=== PATIENT | female | born 1980 | race Caucasian/White ===

== ENCOUNTER 2020-05-01 08:19 | Outpatient (REF) | payer OTHER, SELFPAY ==
[2020-05-01 11:38] LABS: Alanine Aminotransferase 36 U/L (0-31); Albumin Level 4.5 g/dL (3.5-5.0); Alkaline Phosphatase 66 U/L (39-117); Anion Gap 16 (12-20); Aspartate Amino Transferase 19 U/L (5-31); Bilirubin Total 0.5 mg/dL (0.0-1.0); Blood Urea Nitrogen 19 mg/dL (9-16); Calcium 9.6 mg/dL (8.4-10.2); Carbon Dioxide 25 mmol/L (22-29); Chloride 101 mmol/L (96-108); Cholesterol 166 mg/dL; Estimated Glomerular Filt Rate > 60; Glucose Fasting 90 mg/dL (60-99); HDL Cholesterol 44 mg/dL; LDL Cholesterol Calculated 108 mg/dl; Potassium 4.5 mmol/l (3.3-5.1); Sodium 137 mmol/L (135-145); Total Protein 7.7 g/dL (6.5-8.0); Triglycerides 72 mg/dL
[2020-05-01 12:02] LABS: TSH reflex Free T4 0.03 mIU/mL (0.32-4.0)
[2020-05-01 12:36] LABS: Free T4 (Free Thyroxine) 1.77 ng/dL (0.71-1.85)
== END 2020-05-01 08:20 | disposition home or self-care (01) ==
LOC: HO.HMGCLDS 08:19
PROVIDERS: PCP Nurse Practitioner Family; Visit Provider Nurse Practitioner Family
DX: E03.9 Hypothyroidism, unspecified (principal)
CPT/HCPCS: 80053; 80061; 84439; 84443

== ENCOUNTER 2020-09-25 14:30 | Outpatient (REF) | payer OTHER, SELFPAY ==
[2020-09-25 16:34] LABS: MANUAL DIFF FLAG NO
[2020-09-25 16:38] LABS: Basophils Percent Auto 0.5 % (0-2); Eosinophils Absolute Auto 0.3 X10*3/uL (0.0-0.4); Eosinophils Percent Auto 4.9 % (0-4); Hematocrit 47.1 % (37-47); Imm Gran Abs Auto 0.06 X10*3/uL (0.00-0.03); Lymphocytes Absolute Auto 0.8 X10*3/uL (1.2-4.9); Lymphocytes Percent Auto 14.2 % (20-40); Mean Corpuscular HGB Conc 31.8 g/dl (31.0-35.0); Mean Corpuscular Hemoglobin 26.6 pg (27.0-33.0); Mean Corpuscular Volume 83.5 fL (80-98); Mean Platelet Volume 8.6 fL (9.4-12.3); Monocytes Absolute Auto 0.6 X10*3/uL (0.1-1.2); Monocytes Percent Auto 10.3 % (2-11); Neutrophils Percent Auto 69.1 % (45-73); Platelet Count 271 X10*3/uL (160-400); Red Blood Count 5.64 X10*6/uL (4.20-5.50); Red Cell Distribution Width 14.1 % (11.0-16.0); White Blood Count 5.7 X10*3/uL (4.8-10.8)
[2020-09-25 17:40] LABS: Alanine Aminotransferase 52 U/L (0-31); Albumin Level 4.7 g/dL (3.5-5.0); Alkaline Phosphatase 58 U/L (39-117); Anion Gap 17 (12-20); Aspartate Amino Transferase 25 U/L (5-31); Bilirubin Total 0.7 mg/dL (0.0-1.0); Blood Urea Nitrogen 15 mg/dL (9-16); Calcium 9.7 mg/dL (8.4-10.2); Carbon Dioxide 24 mmol/L (22-29); Chloride 101 mmol/L (96-108); Estimated Glomerular Filt Rate > 60; Glucose Random 88 mg/dL (60-115); Potassium 4.2 mmol/L (3.3-5.1); Sodium 138 mmol/L (135-145); Total Protein 8.1 g/dL (6.5-8.0)
[2020-09-25 18:02] LABS: Ferritin 151 ng/mL (10-250); Thyroid Stimulating Hormone 2.65 uIU/mL (0.32-4.0)
[2020-09-25 18:07] LABS: TSH reflex Free T4 2.81 uIU/mL (0.32-4.0)
[2020-09-25 18:27] LABS: Folate 6.4 ng/mL (> or = 4.0); Vitamin B12 808 pg/mL (200-900)
[2020-09-30 19:36] LABS: Estrogen 205.6 pg/mL
== END 2020-09-25 14:31 | disposition home or self-care (01) ==
LOC: HO.HMGCLDS 14:30
PROVIDERS: PCP Nurse Practitioner Family; Visit Provider Nurse Practitioner Family
DX: G43.909 Migraine, unspecified, not intractable, without status migrainosus (principal); E03.9 Hypothyroidism, unspecified
CPT/HCPCS: 36415; 80053; 82607; 82672; 82728; 82746; 83001; 84443; 85025

== ENCOUNTER 2020-11-07 14:21 | Outpatient (REF) | payer OTHER, SELFPAY ==
[2020-11-07 16:20] LABS: MANUAL DIFF FLAG NO
[2020-11-07 16:23] LABS: Basophils Percent Auto 0.4 % (0-2); Eosinophils Absolute Auto 0.3 X10*3/uL (0.0-0.4); Eosinophils Percent Auto 3.8 % (0-4); Hematocrit 43.8 % (37-47); Hemoglobin 14.3 g/dl (12.0-16.0); Imm Gran Abs Auto 0.04 X10*3/uL (0.00-0.03); Imm Gran Pct Auto 0.5 % (0.0-0.4); Lymphocytes Absolute Auto 2.3 X10*3/uL (1.2-4.9); Lymphocytes Percent Auto 28.1 % (20-40); Mean Corpuscular HGB Conc 32.6 g/dl (31.0-35.0); Mean Corpuscular Hemoglobin 27.1 pg (27.0-33.0); Mean Corpuscular Volume 83.1 fL (80-98); Mean Platelet Volume 8.6 fL (9.4-12.3); Monocytes Absolute Auto 0.6 X10*3/uL (0.1-1.2); Monocytes Percent Auto 6.9 % (2-11); Neutrophils Percent Auto 60.3 % (45-73); Platelet Count 323 X10*3/uL (160-400); Red Blood Count 5.27 X10*6/uL (4.20-5.50); White Blood Count 8.2 X10*3/uL (4.8-10.8)
[2020-11-07 16:45] LABS: Alanine Aminotransferase 30 U/L (0-31); Albumin Level 4.7 g/dL (3.5-5.0); Alkaline Phosphatase 59 U/L (39-117); Anion Gap 15 (12-20); Aspartate Amino Transferase 17 U/L (5-31); Bilirubin Total 0.2 mg/dL (0.0-1.0); Blood Urea Nitrogen 17 mg/dL (9-16); Calcium 9.9 mg/dL (8.4-10.2); Carbon Dioxide 25 mmol/L (22-29); Chloride 103 mmol/L (96-108); Estimated Glomerular Filt Rate > 60; Glucose Random 94 mg/dL (60-115); Potassium 4.5 mmol/L (3.3-5.1); Sodium 138 mmol/L (135-145); Total Protein 7.8 g/dL (6.5-8.0)
[2020-11-07 17:06] LABS: Ferritin 38 ng/mL (10-250); TSH reflex Free T4 2.74 uIU/mL (0.32-4.0)
== END 2020-11-07 14:22 | disposition home or self-care (01) ==
LOC: HO.HMGCLDS 14:21
PROVIDERS: PCP Nurse Practitioner Family; Visit Provider Nurse Practitioner Family
DX: E61.1 Iron deficiency (principal); E03.9 Hypothyroidism, unspecified
CPT/HCPCS: 36415; 80053; 82728; 84443; 85025

== ENCOUNTER 2021-04-20 06:52 | Outpatient (REF) | payer OTHER, SELFPAY ==
[2021-04-20 11:44] LABS: Appearance Urine CLEAR; Color Urine STRAW; Glucose Urine UA NEG (NEG); Leukocyte Esterase Urine NEG (NEG); Nitrite Urine NEG (NEG); Specific Gravity - Urine <= 1.005 (1.005-1.025); Urine Blood NEG (NEG); Urine Ketones NEG (NEG); Urine Protein NEG (NEG-TRACE)
[2021-04-20 12:16] LABS: Alanine Aminotransferase 33 U/L (0-31); Albumin Level 4.7 g/dL (3.5-5.0); Alkaline Phosphatase 60 U/L (39-117); Anion Gap 17 (12-20); Aspartate Amino Transferase 27 U/L (5-31); Bilirubin Total 0.7 mg/dL (0.0-1.0); Blood Urea Nitrogen 19 mg/dL (9-16); Calcium 10.3 mg/dL (8.4-10.2); Carbon Dioxide 23 mmol/L (22-29); Chloride 101 mmol/L (96-108); Cholesterol 173 mg/dL; Estimated Glomerular Filt Rate > 60; Glucose Random 93 mg/dL (60-115); HDL Cholesterol 35 mg/dL; LDL Cholesterol Calculated 114 mg/dl; Sodium 136 mmol/L (135-145); Total Protein 8.2 g/dL (6.5-8.0); Triglycerides 120 mg/dL
== END 2021-04-20 06:53 | disposition home or self-care (01) ==
LOC: HO.HMGCLDS 06:52
PROVIDERS: PCP Nurse Practitioner Family; Visit Provider Nurse Practitioner Family
DX: E03.9 Hypothyroidism, unspecified (principal)
CPT/HCPCS: 36415; 80053; 80061; 81003; 84443

== ENCOUNTER 2021-06-13 07:13 | Outpatient (REF) | payer OTHER, SELFPAY ==
[2021-06-13 11:33] LABS: Appearance Urine CLEAR; Color Urine STRAW; Glucose Urine UA NEG (NEG); Leukocyte Esterase Urine TRACE (NEG); Nitrite Urine NEG (NEG); PH 5.5 (5.0-8.0); Specific Gravity - Urine <= 1.005 (1.005-1.025); UACC Culture Trigger YES; Urine Blood NEG (NEG); Urine Ketones NEG (NEG); Urine Protein NEG (NEG-TRACE)
[2021-06-13 12:00] LABS: Squamous Epithelial Cell Urine TRACE /LPF; WBC Urine 0-2 /HPF (0-4)
[2021-06-13 12:09] LABS: Alanine Aminotransferase 32 U/L (0-31); Albumin Level 4.3 g/dL (3.5-5.0); Alkaline Phosphatase 72 U/L (39-117); Anion Gap 12 (12-20); Aspartate Amino Transferase 18 U/L (5-31); Bilirubin Total 0.7 mg/dL (0.0-1.0); Blood Urea Nitrogen 17 mg/dL (9-16); Calcium 9.7 mg/dL (8.4-10.2); Carbon Dioxide 26 mmol/L (22-29); Chloride 104 mmol/L (96-108); Cholesterol 196 mg/dL; Estimated Glomerular Filt Rate > 60; Glucose Fasting 93 mg/dL (60-99); HDL Cholesterol 36 mg/dL; LDL Cholesterol Calculated 131 mg/dl; Magnesium 2.2 mg/dL (1.6-2.6); Potassium 4.3 mmol/L (3.3-5.1); Sodium 138 mmol/L (135-145); Total Protein 7.2 g/dL (6.5-8.0); Triglycerides 146 mg/dL
[2021-06-13 12:20] LABS: TSH reflex Free T4 1.87 uIU/mL (0.32-4.0)
== END 2021-06-13 07:14 | disposition home or self-care (01) ==
LOC: HO.HMGCLDS 07:13
PROVIDERS: Visit Provider Nurse Practitioner Family
DX: Z00.00 Encounter for general adult medical examination without abnormal findings (principal); R25.2 Cramp and spasm
CPT/HCPCS: 36415; 80053; 80061; 81001; 83735; 84443; 87086

== ENCOUNTER 2022-05-07 08:09 | Outpatient (REF) | payer OTHER, SELFPAY ==
[2022-05-07 11:11] LABS: MANUAL DIFF FLAG NO
[2022-05-07 11:21] LABS: Appearance Urine Clear; Color Urine Yellow; Glucose Urine UA Negative (Negative); Leukocyte Esterase Urine Moderate (2+) (Negative); Nitrite Urine Negative (Negative); Specific Gravity - Urine 1.015 (1.005-1.025); UMIC TRIGGER UACC YES; Urine Blood Negative (Negative); Urine Ketones Negative (Negative); Urine Protein Negative (Neg-Trace)
[2022-05-07 11:27] LABS: Bacteria Urine None Seen (None Seen); Hyaline Casts Urine 0-2 /LPF (0-2); Squamous Epithelial Cell Urine 0-2 /HPF (0-2); UACC Culture Trigger YES
[2022-05-07 11:29] LABS: Basophils Percent Auto 0.7 % (0-2); Eosinophils Absolute Auto 0.3 X10*3/uL (0.0-0.4); Hematocrit 43.4 % (37.0-47.0); Hemoglobin 14.3 g/dl (12.0-16.0); Imm Gran Abs Auto 0.02 X10*3/uL (0.00-0.03); Imm Gran Pct Auto 0.3 % (0.0-0.4); Lymphocytes Absolute Auto 1.7 X10*3/uL (1.2-4.9); Lymphocytes Percent Auto 27.9 % (20-40); Mean Corpuscular HGB Conc 32.9 g/dl (31.0-35.0); Mean Corpuscular Hemoglobin 28.3 pg (27.0-33.0); Mean Corpuscular Volume 85.8 fL (80.0-98.0); Mean Platelet Volume 8.8 fL (9.4-12.3); Monocytes Absolute Auto 0.4 X10*3/uL (0.1-1.2); Neutrophils Absolute Auto 3.5 x10*3/uL (2.0-8.3); Neutrophils Percent Auto 59.1 % (45-73); Platelet Count 287 X10*3/uL (160-400); Red Blood Count 5.06 X10*6/uL (4.20-5.50); Red Cell Distribution Width 13.1 % (11.0-16.0)
[2022-05-07 12:40] LABS: Alanine Aminotransferase 22 U/L (0-31); Albumin Level 4.4 g/dL (3.5-5.0); Alkaline Phosphatase 61 U/L (39-117); Anion Gap 11 (12-20); Aspartate Amino Transferase 15 U/L (5-31); Bilirubin Total 0.6 mg/dL (0.0-1.0); Blood Urea Nitrogen 18 mg/dL (9-16); Calcium 9.9 mg/dL (8.4-10.2); Carbon Dioxide 28 mmol/L (22-29); Chloride 103 mmol/L (96-108); Cholesterol 212 mg/dL; Estimated Glomerular Filt Rate > 60; Glucose Fasting 93 mg/dL (60-99); HDL Cholesterol 46 mg/dL; LDL Cholesterol Calculated 136 mg/dl; Potassium 4.3 mmol/L (3.3-5.1); Sodium 138 mmol/L (135-145); TSH reflex Free T4 0.98 uIU/mL (0.32-4.0); Total Protein 7.2 g/dL (6.5-8.0); Triglycerides 151 mg/dL
== END 2022-05-07 08:10 | disposition home or self-care (01) ==
LOC: HO.HMGCLDS 08:09
PROVIDERS: PCP Nurse Practitioner Family; Visit Provider Nurse Practitioner Family
DX: Z00.00 Encounter for general adult medical examination without abnormal findings (principal); E03.9 Hypothyroidism, unspecified
CPT/HCPCS: 36415; 80053; 80061; 81001; 84443; 85025; 87086

== ENCOUNTER 2022-11-27 14:36 | Outpatient (REF) | payer OTHER, SELFPAY ==
[2022-11-30 02:24] LABS: TS Negative Control Passed; TS Panel A 0; TS Panel B 0; TS Positive Control Passed; TSpotTB Negative (Negative)
== END 2022-11-27 14:37 | disposition home or self-care (01) ==
LOC: HO.LAB 14:36
PROVIDERS: PCP Nurse Practitioner Family; Visit Provider Nurse Practitioner Family
DX: Z11.1 Encounter for screening for respiratory tuberculosis (principal)
CPT/HCPCS: 36415; 86481

== ENCOUNTER 2022-11-29 09:58 | Outpatient (REF) | payer OTHER, SELFPAY ==
[2022-12-02 08:39] LABS: ~Hepatitis B Surface Antibody NONREACTIVE (Nonreactive)
== END 2022-11-29 09:59 | disposition home or self-care (01) ==
LOC: HO.HMGCLDS 09:58
PROVIDERS: PCP Nurse Practitioner Family; Visit Provider Nurse Practitioner Family
DX: Z78.9 Other specified health status (principal); Z20.2 Contact with and (suspected) exposure to infections with a predominantly sexual mode of transmission
CPT/HCPCS: 36415; 86706

== ENCOUNTER 2023-04-14 13:23 | Outpatient (REF) | payer OTHER, SELFPAY ==
--- NOTE | ~2023-04-14 | US_ITS ---
EXAMINATION: US VENOUS ULTRASOUND WITH DOPPLER LOWER EXTREMITY, LEFT CLINICAL INFORMATION: Pain in left lower leg. COMPARISON: None available. TECHNIQUE: Ultrasound of the deep veins is performed from the hip to the calf with compression sonography and color and pulse Doppler assessment. Spectral analysis with color-flow imaging is performed. FINDINGS: There is normal venous compression and respiratory variation and augmented flow. The visualized common femoral vein, superficial femoral vein, profunda femoral vein, popliteal vein, and the trifurcation region shows no evidence of deep venous thrombosis. There is no significant popliteal fossa cyst. If the patient's symptoms persist, followup ultrasound in 5 days 7 days might be of value to exclude proximal propagation from a non-visualized calf vein. US/US venous duplex LE LT IMPRESSION: No DVT demonstrated in the left lower extremity.
== END 2023-04-14 13:24 | disposition home or self-care (01) ==
LOC: HO.HMGCX 13:23
PROVIDERS: PCP Nurse Practitioner Family; Visit Provider Nurse Practitioner Family
DX: M79.662 Pain in left lower leg (principal)
CPT/HCPCS: 93971

== ENCOUNTER 2023-05-13 07:38 | Outpatient (AMB) | payer OTHER, SELFPAY ==
--- NOTE | 2023-05-13 07:43 | MHC.PC.OV ---
Vital Signs 05/13/23 07:47 Height 5 ft 5 in Weight 296 lb BMI 49.3 BP 104/68 Blood Pressure Location Lt brachial Position Sitting Pulse 74 Pulse Source Pulse Oximeter Pulse Oximetry (%) 94 Oxygen Delivery Method Room Air Intake Visit Reasons: Annual PE Intake Note: Pt is here today for her PE Allergies hydroxychloroquine [From Plaquenil] Allergy (Mild, Verified 05/13/23 07:46) Weakness codeine Allergy (Unknown, Verified 05/13/23 07:46) unknown fluticasone [Advair Diskus] Allergy (Unknown, Verified 05/13/23 07:46) Hives levothyroxine sodium [LEVOTHYROXINE SODIUM] Allergy (Unknown, Verified 05/13/23 07:46) ITCHING, rash, itching-NAME BRAND [place] minocycline [MINOCYCLINE] Allergy (Unknown, Verified 05/13/23 07:46) HEADACHE salmeterol [Advair Diskus] Allergy (Unknown, Verified 05/13/23 07:46) Hives acetaminophen [From Vicodin] Adverse Reaction (Unknown, Verified 05/13/23 07:46) Vomiting hydrocodone [From Vicodin] Adverse Reaction (Unknown, Verified 05/13/23 07:46) Vomiting metformin Adverse Reaction (Verified 05/13/23 07:54) muscle weakness topamate Adverse Reaction (Uncoded 05/13/23 07:54) muscle weakness Medication List - Last Reconciled 05/13/23 by MIRNA WestP-BC albuterol sulfate 90 mcg/actuation (Ventolin HFA) 2 puffs inhalation Q6H PRN 30 days amitriptyline 25 mg PO BEDTIME ascorbate calcium (vitamin C) 500 mg PO DAILY cetirizine 10 mg PO DAILY fremanezumab-vfrm (Ajovy Syringe) 675 mg subcut Q 3 months; administer as 3 consecutive 225 mg injections magnesium glycinate 400 mg PO DAILY montelukast 10 mg PO DAILY multivitamin (Daily Multi-Vitamin tablet) 1 tab PO DAILY propranolol ER 80 mg PO DAILY 90 days rizatriptan mg PO spironolactone 100 mg PO DAILY 90 days Synthroid (levothyroxine) 200 mcg PO DAILY NS Tobacco use date assessed: 05/13/23 Dental Screening Dental Screen Date: 05/13/23 Did you have a dental visit in the last 12 months?: Yes Did you have a dental problem in the last 6 months where you did not have access to dental care?: Yes Was dental information given to patient?: Patient has dentist HPI Annual PE HPI Details Here for a PE. 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 Pt has a neurologist, and sees a bariatric specialist as well. Hx of dyslipidemia, will start statin if choles is elevated during this next lab draw. Will be do for a colon screen in august, will refer [facility] Medical History Right humeral fracture Chronic GERD Iron deficiency Left Achilles tendinitis Plantar fasciitis Dyslipidemia Hypothyroid HTN (hypertension) Asthma Physical exam Right shoulder injury Surgical History S/P gastric sleeve procedure History of sleeve gastrectomy H/O repair of right rotator cuff History of lipoma Hx of cholecystectomy History of section History of tonsillectomy and adenoidectomy Family History Father No problems noted. Mother Non-Hodgkins lymphoma Sister No problems noted. Brother No problems noted. Maternal Grandmother Diabetes mellitus HTN (hypertension) Degenerative disk disease Breast cancer Maternal Grandfather No problems noted. Brother No problems noted. Sister No problems noted. Social History Housing: House Alcohol intake: never Patient Tobacco Use Status: Never used Tobacco Tobacco use type: Cigarette e-Cigarette/Vaping Use: Never Used Second Hand Smoke Exposure: Yes Current occupational status: employed Cognitive needs: No Hearing needs: No Vision needs: No Questionnaire PHQ-9 Over the last 2 weeks, how often have you been bothered by any of the following problems? 1. Little interest or pleasure in doing things: not at all 2. Feeling down, depressed, or hopeless: not at all 3. Trouble falling or staying asleep, or sleeping too much: not at all 4. Feeling tired or having little energy: not at all 5. Poor appetite or overeating: not at all 6. Feeling bad about yourself - or that you are a failure or have let yourself or your family down: not at all 7. Trouble concentrating on things, such as reading the newspaper or watching television: not at all 8. Moving or speaking so slowly that other people could have noticed. Or the opposite - being so fidgety or restless that you have been moving around a lot more than usual: not at all 9. Thoughts that you would be better off or of hurting yourself in some way: not at all Total score: 0 Source: Developed by Drs. Kevin Seay, Amarilis Villalobos, Jason Hernandez and colleagues, with an educational katarina from [employer]. Thrive Questionnaire Date Thrive assessed: 05/13/23 I am a: Patient What is your living situation today?: I have a steady place to live Within the past 12 months, did the food you bought not last and you didn't have the money to get more?: Never true Within the past 12 months, did you worry whether your food would run out before you got money to buy more?: Never true Do you have trouble paying for medicines?: No Do you have trouble getting transportation to medical appointments?: No Do you have trouble paying your heating and electricity bill?: No Do you have trouble taking care of your child, family member or friend?: No Do you have trouble with day-to-day activities such as bathing, preparing meals, shopping, managing finances, etc.?: No Are you currently unemployed and looking for a job?: No Are you interested in more education?: No AUDIT C Alcohol Use Questionnaire (AUDIT-C) 1. How often do you have a drink containing alcohol?: Never Total Score: 0 JAYCE-7 AMB Questionnaire JAYCE-7 Date JAYCE - 7 assessed: 05/13/23 Feeling nervous, anxious, or on edge: 0 = Not at all Not being able to stop or control worryin = Not at all Worrying too much about different things: 0 = Not at all Trouble relaxin = Not at all Being so restless that it is hard to sit still: 0 = Not at all Becoming easily annoyed or irritable: 0 = Not at all Feeling afraid as if something awful might happen: 0 = Not at all Total JAYCE-7 score (0-4 normal; 5-9 mild; 10-14 moderate; 15-21 severe): 0 Source: Developed by Drs. Kevin Seay, Amarilis Villalobos, Jason Hernandez and colleagues, with an educational katarina from [employer]. JAYCE-7 Assessment Billing JAYCE-7 Assessment Tool: JAYCE-7 Assessment 68802 Review of Systems Const Denies chills and Denies fever(s) Eyes Denies blurry vision ENT Denies vertigo, Denies dizziness and Denies sore throat Card Denies chest pain at rest, Denies chest pain with activity, Denies diaphoresis, Denies dyspnea and Denies dyspnea on exertion Resp Denies cough, Denies dyspnea, Denies dyspnea on exertion and Denies wheezing GI Denies abdominal pain, Denies melena, Denies hematochezia, Denies constipation, Denies diarrhea and Denies loose stools Denies hematuria Musc Denies numbness and Denies tingling Skin/Breast Denies lesions Neuro Denies vertigo, Denies dizziness, Denies numbness and Denies tingling Psych Denies anxiety, Denies depression, Denies homicidal ideation, Denies suicidal ideation and Denies other (substance abuse) Aller/Immun Denies wheezing Physical exam (Primary Care) Vital Signs: Last Vital Signs Pulse 74 05/13/23 07:47 BP 104/68 05/13/23 07:47 Pulse Ox 94 05/13/23 07:47 Oxygen Delivery Method Room Air 05/13/23 07:47 BMI result Body Mass Index 49.3 Tobacco/Smoking Status: Tobacco use Status Tobacco use date assessed 05/13/23 05/13/23 07:52 Patient Tobacco Use Status Never used Tobacco 05/13/23 07:44 Tobacco use type Cigarette 05/13/23 07:44 e-Cigarette/Vaping Use Never Used 05/13/23 07:44 PHQ-9: PHQ-9 Score PHQ-9: Total score 0 05/13/23 07:54 Thrive Assessment: Date of Thrive Assessment Date Thrive assessed 05/13/23 05/13/23 07:54 Const General: cooperative Nutritional Appearance: well nourished and obese Orientation/consciousness: patient oriented x3 HENMT Head: Yes normal to inspection, Yes normocephalic and Yes atraumatic Ears: TM normal on the right and TM normal on the left Eyes General: appearance normal, both eyes and all related structures Alignment and Position: alignment normal and position normal Neck Neck: Yes normal visual inspection and Yes no lymphadenopathy Resp Effort & Inspection: normal respiratory effort Auscultation: clear to auscultation bilaterally Cardio Rate: regular rate Rhythm: regular rhythm Heart sounds: S1 normal heart sound present, S2 normal heart sound present and no murmurs GI Palpation (GI): Soft to palpation and nontender Auscultation: normal bowel sounds Skin Rashes: no rashes Neuro General: patient oriented x3, moves all extremities, no focal motor deficits and deep tendon reflexes 2+ bilaterally Romberg Test: Negative Extrem Right lower extremity: no edema Left lower extremity: no edema Psych Affect: normal affect Attitude: cooperative Thought process: Normal thought process present Assessment and Plan Assessment & Plan (1) Physical exam: Code(s): Z00.00 - Encounter for general adult medical examination without abnormal findings (2) Screening for colon cancer: Code(s): Z12.11 - Encounter for screening for malignant neoplasm of colon Orders: Orders TSH reflex Free T4 Today Z00.00 - Encounter for general adult medical examination without abnormal findings Complete Blood Count Auto Diff Today Z00.00 - Encounter for general adult medical examination without abnormal findings Comprehensive [place]. Panel Fast Today Z00.00 - Encounter for general adult medical examination without abnormal findings UA CC w/rflx Micro + Cult Today Z00.00 - Encounter for general adult medical examination without abnormal findings Lipid Panel Today Z00.00 - Encounter for general adult medical examination without abnormal findings Referrals Gastroenterology Referral Z12.11 - Encounter for screening for malignant neoplasm of colon Coding Level of Care Code Est Pt Prev Care 40-64y(39616) Diagnoses Physical exam Z00. Screening for colon cancer Z12.11 Additional Codes JAYCE-7 Assessment Billing - JAYCE-7 Assessment Tool: JAYCE-7 Assessment 39448 ([id number])
[2023-05-13 07:47] VITALS: BP 104/68; PULSE 74; O2SAT 94; BMI 49.3
== END 2023-05-13 08:24 | disposition home or self-care (01) ==
LOC: HO.HMGC 07:38
PROVIDERS: Visit Provider Nurse Practitioner Family
DX: Z00.00 Encounter for general adult medical examination without abnormal findings (principal); Z12.11 Encounter for screening for malignant neoplasm of colon
CPT/HCPCS: 99396

== ENCOUNTER 2023-09-01 07:52 | Outpatient (AMB) | payer OTHER, SELFPAY ==
--- NOTE | 2023-09-01 07:53 | A.OFFVIS_ITS ---
Vital Signs 09/01/23 07:54 Height 5 ft 5 in Weight 301 lb 9.478 oz BMI 50.2 BP 137/88 Blood Pressure Location Lt brachial Position Sitting Pulse 78 Pulse Source Pulse Oximeter Intake Visit Reasons: Colonoscopy Screening Intake Note: Raegan presents in the office as a Colonoscopy Screening. Pt states she is overall feeling well and denies any concerns at this time. Restaurant Associate Required: No Allergies hydroxychloroquine [From Plaquenil] Allergy (Mild, Verified 09/01/23 08:04) Weakness codeine Allergy (Unknown, Verified 09/01/23 08:04) unknown fluticasone [Advair Diskus] Allergy (Unknown, Verified 09/01/23 08:04) Hives levothyroxine sodium [LEVOTHYROXINE SODIUM] Allergy (Unknown, Verified 09/01/23 08:04) ITCHING, rash, itching-NAME BRAND [place] minocycline [MINOCYCLINE] Allergy (Unknown, Verified 09/01/23 08:04) HEADACHE salmeterol [Advair Diskus] Allergy (Unknown, Verified 09/01/23 08:04) Hives acetaminophen [From Vicodin] Adverse Reaction (Unknown, Verified 09/01/23 08:04) Vomiting hydrocodone [From Vicodin] Adverse Reaction (Unknown, Verified 09/01/23 08:04) Vomiting metformin Adverse Reaction (Verified 09/01/23 08:04) muscle weakness topamate Adverse Reaction (Uncoded 09/01/23 08:04) muscle weakness HPI HPI Colonoscopy Screening: Details: 43 year old? female with past medical history of hypothyroidism, iron deficiency anemia, migraines, hypertension, status post gastric sleeve is here today for pre colonoscopy screening.? Patient was sent to us by her PCP.? This is her first colonoscopy screening.? Patient denies any gastrointestinal symptoms in the past or at present.? Denies any personal or family history of gastrointestinal disease, colon polyps, or cancer.? Denies history of difficulty with sedation or anesthesia in the past.? Negative for history of sleep apnea.? Denies any history of cardiac, renal, pulmonary, or hepatic disease.?? No history of infectious? diseases like hepatitis A, B, C, HIV or tuberculosis.? Patient is not on any anticoagulation therapy. [facility] Medical History Right humeral fracture Chronic GERD Iron deficiency Left Achilles tendinitis Plantar fasciitis Dyslipidemia Hypothyroid HTN (hypertension) Asthma Physical exam Right shoulder injury Surgical History S/P gastric sleeve procedure History of sleeve gastrectomy H/O repair of right rotator cuff History of lipoma Hx of cholecystectomy History of section History of tonsillectomy and adenoidectomy Family History Father No problems noted. Mother Non-Hodgkins lymphoma Sister No problems noted. Brother No problems noted. Maternal Grandmother Diabetes mellitus HTN (hypertension) Degenerative disk disease Breast cancer Maternal Grandfather No problems noted. Brother No problems noted. Sister No problems noted. Social History Housing: House Alcohol intake: never Patient Tobacco Use Status: Never used Tobacco Tobacco use type: Cigarette e-Cigarette/Vaping Use: Never Used Second Hand Smoke Exposure: Yes Current occupational status: employed Cognitive needs: No Hearing needs: No Vision needs: No Review of Systems Const Denies weight gain and Denies weight loss ENT Reports no additional complaints, Denies dysphagia and Denies odynophagia Card Reports no additional complaints Resp Reports no additional complaints GI Denies abdominal pain, Denies belching, Denies melena, Denies bloating, Denies change in bowel habits, Denies dysphagia, Denies excessive flatus, Denies dyspepsia, Denies heartburn, Denies diarrhea, Denies loose stools, Denies nausea, Denies odynophagia and Denies vomiting Musc Reports no additional complaints Neuro Reports no additional complaints Psych Reports no additional complaints Endo Reports no additional complaints Physical Exam Vital Signs: Last Vital Signs Pulse 78 09/01/23 07:54 BP 137/88 09/01/23 07:54 BMI result Body Mass Index 50.2 Const General: healthy appearing and no acute distress Nutritional Appearance: obese Orientation/consciousness: patient oriented x3 Resp Effort & Inspection: normal respiratory effort, able to speak in complete sentences, no tracheal deviation and symmetric chest movement Auscultation: clear to auscultation bilaterally Cardio Rate: regular rate GI Inspection: Yes normal to inspection, No distended and Yes obesity Palpation (GI): Soft to palpation, not firm, nontender and No hepatosplenomegaly present Auscultation: normal bowel sounds General: Yes no CVA tenderness Back/Spine/Pelvis Back: no CVA tenderness Skin General skin exam: elasticity normal, turgor normal and dry skin Neuro General: patient oriented x3 Psych Appearance: grossly normal Mental Status: mental status grossly normal Assessment & Plan Assessment & Plan (1) Screening for colon cancer: Code(s): Z12.11 - Encounter for screening for malignant neoplasm of colon Category: Medical Plan Patient denies any GI, cardiac or respiratory symptoms. ?Denies any issues with anesthesia in the past.? Denies any history of sleep apnea.? No history infectious diseases in the past or present.? Not on any anticoagulation therapy.? No family or personal history of colon cancer or polyps.? Patient denies melena, hematochezia, unintentional weight loss or ribbon like stools.? Discussed at length the pre-procedure,? prep, diet & medications as well as what to expect prior, during and after the procedure.?? Stressed the importance of good bowel prep. ?Recommended the use of Vaseline or Calmoseptine OTC & baby wipes with bowel movements to promote comfort.? ?Patient verbalizes understanding and agrees to plan of care.? She was given the opportunity to ask questions and all questions answered.? We will see her after the procedure.? Medications: New bisacodyl (Dulcolax (bisacodyl)) take 4 tabs at noon the day before your colonoscopy 20 mg (4 x 5 mg) PO ONCE 1 day 4 tabs 0RF Z12.11 - Encounter for screening for malignant neoplasm of colon polyethylene glycol 3350 (Miralax) As directed by gastroenterology department at [facility] 238 grams PO ONCE 238 grams 0RF Z12.11 - Encounter for screening for malignant neoplasm of colon
[2023-09-01 07:54] VITALS: BP 137/88; PULSE 78; BMI 50.2
== END 2023-09-01 08:37 | disposition home or self-care (01) ==
PROVIDERS: PCP Nurse Practitioner Family; Visit Provider Nurse Practitioner Family
DX: Z01.818 Encounter for other preprocedural examination (principal); Z12.11 Encounter for screening for malignant neoplasm of colon
CPT/HCPCS: S0285

== ENCOUNTER → 2023-09-01 07:52 | Outpatient (BNVA) | payer OTHER, SELFPAY | PROVIDERS: PCP Nurse Practitioner Family; Visit Provider Nurse Practitioner Family ==

== ENCOUNTER 2023-10-20 08:27 | Outpatient (AMB) | payer OTHER, SELFPAY ==
--- NOTE | 2023-10-20 08:31 | MHC.PC.OV ---
Vital Signs 10/20/23 08:32 Height 5 ft 5 in Weight 301 lb BMI 50.1 BP 110/72 Blood Pressure Location Rt brachial Position Sitting Pulse 82 Pulse Source Pulse Oximeter Pulse Oximetry (%) 98 Oxygen Delivery Method Room Air Intake Visit Reasons: 5 month fu Intake Note: Patient here for f/u after labs Allergies codeine Allergy (Unknown, Verified 10/20/23 08:33) unknown fluticasone [Advair Diskus] Allergy (Unknown, Verified 10/20/23 08:33) Hives levothyroxine sodium [LEVOTHYROXINE SODIUM] Allergy (Unknown, Verified 10/20/23 08:33) ITCHING, rash, itching-NAME BRAND [place] minocycline [MINOCYCLINE] Allergy (Unknown, Verified 10/20/23 08:33) HEADACHE salmeterol [Advair Diskus] Allergy (Unknown, Verified 10/20/23 08:33) Hives acetaminophen [From Vicodin] Adverse Reaction (Unknown, Verified 10/20/23 08:33) Vomiting hydrocodone [From Vicodin] Adverse Reaction (Unknown, Verified 10/20/23 08:33) Vomiting metformin Adverse Reaction (Verified 10/20/23 08:33) muscle weakness topamate Adverse Reaction (Uncoded 10/20/23 08:33) muscle weakness Medication List - Last Reconciled 10/20/23 by JULIO West-MATTHEW albuterol sulfate 90 mcg/actuation (Ventolin HFA) 2 puffs inhalation Q6H PRN 30 days amitriptyline 25 mg PO BEDTIME ascorbate calcium (vitamin C) 500 mg PO DAILY bisacodyl (Dulcolax (bisacodyl)) 20 mg (4 x 5 mg) PO ONCE 1 day cetirizine 10 mg PO DAILY hydroxychloroquine (Plaquenil) 150 mg PO DAILY levothyroxine (Synthroid) 25 mcg PO DAILY 90 days magnesium 200 mg PO DAILY magnesium glycinate 400 mg PO DAILY montelukast 10 mg PO DAILY multivitamin (Daily Multi-Vitamin tablet) 1 tab PO DAILY polyethylene glycol 3350 (Miralax) 238 grams PO ONCE propranolol ER 80 mg PO DAILY 90 days rizatriptan mg PO spironolactone 100 mg PO DAILY 90 days Synthroid (levothyroxine) 200 mcg PO DAILY NS tizanidine 4 mg PO BEDTIME PRN 30 days Tobacco use date assessed: 05/13/23 Dental Screening Dental Screen Date: 05/13/23 HPI 5 month fu HPI Details Pt has a hx of chronic migraines. She had an MRI which showed no acute intracranial abnormality, constellation of findings described that can be correlated clinically for idiopathic intracranial hypertension/pseudotumor cerebri. 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 Accentuated vertical tortuosity and CSF distention of the bilateral optic nerve sheath complexes with suggestion of flattening along the posterior globes without osmani intraocular optic nerve head protrusion. 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 Chronic lacunar infarct in the right cerebellum. Pt reports daily migraines with some blurred vision and nausea. She will be following up with neurosurgery this week. Denies fever, chills, and dizziness. She will keep me posted with her neuro-surg appt, (eval and further treatment plan) [facility] Medical History Right humeral fracture Chronic GERD Iron deficiency Left Achilles tendinitis Plantar fasciitis Dyslipidemia Hypothyroid HTN (hypertension) Asthma Physical exam Right shoulder injury Surgical History S/P gastric sleeve procedure History of sleeve gastrectomy H/O repair of right rotator cuff History of lipoma Hx of cholecystectomy History of section History of tonsillectomy and adenoidectomy Family History Father No problems noted. Mother Non-Hodgkins lymphoma Sister No problems noted. Brother No problems noted. Maternal Grandmother Diabetes mellitus HTN (hypertension) Degenerative disk disease Breast cancer Maternal Grandfather No problems noted. Brother No problems noted. Sister No problems noted. Social History Housing: House Alcohol intake: never Patient Tobacco Use Status: Never used Tobacco Tobacco use type: Cigarette e-Cigarette/Vaping Use: Never Used Second Hand Smoke Exposure: Yes Current occupational status: employed Cognitive needs: No Hearing needs: No Vision needs: No Questionnaire PHQ-9 Over the last 2 weeks, how often have you been bothered by any of the following problems? 28547 - PHQ-9 Billing: Patient declined-do not bill Source: Developed by Drs. Kevin Seay, Jason Meraz and colleagues, with an educational katarina from [employer]. Thrive Questionnaire Date Thrive assessed: 05/13/23 I am a: Patient What is your living situation today?: I have a steady place to live Within the past 12 months, did the food you bought not last and you didn't have the money to get more?: Never true Within the past 12 months, did you worry whether your food would run out before you got money to buy more?: Never true THRIVE Score: 0 AUDIT C Alcohol Use Questionnaire (AUDIT-C) 1. How often do you have a drink containing alcohol?: Never 3. How often do you have six or more drinks on one occasion?: Never Total Score: 0 JAYCE-7 AMB Questionnaire JAYCE-7 Date JAYCE - 7 assessed: 05/13/23 Feeling nervous, anxious, or on edge: 0 = Not at all Not being able to stop or control worryin = Not at all Worrying too much about different things: 0 = Not at all Trouble relaxin = Not at all Being so restless that it is hard to sit still: 0 = Not at all Becoming easily annoyed or irritable: 0 = Not at all Feeling afraid as if something awful might happen: 0 = Not at all Total JAYCE-7 score (0-4 normal; 5-9 mild; 10-14 moderate; 15-21 severe): 0 Source: Developed by Drs. Kevin Seay, Jason Meraz and colleagues, with an educational katarina from [employer]. JAYCE-7 Assessment Billing JAYCE-7 Assessment Tool: pt declined-do not bill Review of Systems Const Reports as per HPI Physical exam (Primary Care) Vital Signs: Last Vital Signs Pulse 82 10/20/23 08:32 BP 110/72 10/20/23 08:32 Pulse Ox 98 10/20/23 08:32 Oxygen Delivery Method Room Air 10/20/23 08:32 BMI result Body Mass Index 50.1 Tobacco/Smoking Status: Tobacco use Status Tobacco use date assessed 05/13/23 10/20/23 08:32 Patient Tobacco Use Status Never used Tobacco 10/20/23 08:32 Tobacco use type Cigarette 10/20/23 08:32 e-Cigarette/Vaping Use Never Used 10/20/23 08:32 Thrive Assessment: Date of Thrive Assessment Date Thrive assessed 05/13/23 10/20/23 08:32 Const General: cooperative Nutritional Appearance: obese morbidly obese Orientation/consciousness: patient oriented x3 Resp Effort & Inspection: normal respiratory effort Auscultation: clear to auscultation bilaterally Cardio Rate: regular rate Rhythm: regular rhythm Heart sounds: S1 normal heart sound present and S2 normal heart sound present Neuro Other: heel to nazario intact, finger to thumb intact General: patient oriented x3 Cranial nerves: Yes CN's II-XII intact bilaterally Motor exam (neuro): 5/5 motor strength present throughout Psych Appearance: grossly normal Mental Status: mental status grossly normal Speech and movement: Normal speech and movement present Affect: normal affect Attitude: cooperative Thought process: Normal thought process present Thought content: Normal thought content present Insight: Good insight present (Psych) Judgement: Good judgement present (Psych) Assessment and Plan Assessment & Plan (1) Migraine: Code(s): G43.909 - Migraine, unspecified, not intractable, without status migrainosus Plan: abnormal MRI of head, pt seeing neuro-surg this coming week. Spinal tap recommended. Plan The patient agreed to the use of a medical sales associate for this encounter. Scribed for ASHLEY Reid by Grazyna Gutierrez medical sales associate, on 10/20/2023 at 08:45 EST. Medications: New tizanidine 4 mg PO BEDTIME 30 days PRN 30 tabs 0RF muscle spasticity Changed From albuterol sulfate 90 mcg/actuation (Ventolin HFA) 2 puffs inhalation Q6H 30 days PRN 8.5 grams 2RF shortness of breath or wheezing To albuterol sulfate 90 mcg/actuation (Ventolin HFA) 2 puffs inhalation Q6H 90 days PRN 8.5 grams 2RF shortness of breath or wheezing Refilled Synthroid (levothyroxine) 200 mcg PO DAILY 90 tabs 3RF NS Coding Level of Care Code Est Pt Level 3 (34825) Diagnoses Migraine G43.909
[2023-10-20 08:32] VITALS: BP 110/72; PULSE 82; O2SAT 98; BMI 50.1
== END 2023-10-20 09:13 | disposition home or self-care (01) ==
PROVIDERS: PCP Nurse Practitioner Family; Visit Provider Nurse Practitioner Family
DX: G43.909 Migraine, unspecified, not intractable, without status migrainosus (principal)
CPT/HCPCS: 99213

== ENCOUNTER 2024-06-01 07:14 | Day surgery (SDC) | payer OTHER, SELFPAY ==
--- OUTSIDE RECORDS SUMMARY | 2024-06-01 07:17 | XMS_ITS | Data Portability ---
Author Organization [place] - [facility], [facility] Address [id number] [place] [address] Assessment No assessment recorded. Plan of Treatment Reminders Order Date Submit Date Provider Last Modified By Organization Details Last Modified Time Details Appointments None recorded. Lab test, urine 2017 018 In-Office Order, Internal Use Only DO Not Attach Compendium DO Not Attach Compendium, Do Not Delete/merge, [id number] 13:32:53 pap, IG + HPV 2019 020 [facility], [address] [place] [address], [id number] 0 06:52:44 pap, IG + HPV 2022 023 [facility], [address] [place] [address], [id number] 3 15:03:30 Referral None recorded. Procedures None recorded. Surgeries None recorded. Imaging US, transvagina l 2017 018 [email or web address] Not available 8 15:01:52 MAMMO, screening, digital, bilateral 2019 020 [email or web address] Not available 0 10:26:34 MAMMO, screening, digital, bilateral 2020 021 ROSEMARY Not available 1 12:29:05 MAMMO, screening, digital, bilateral 2022 023 ROSEMARY Not available 3 13:41:43 MAMMO, screening, digital, bilateral 2023 024 [facility], [address], [place], [address], 13:54:57 Medication Orders None recorded. Patient TargetsNo targets recorded. Patient Instructions Encounter Date Encounter Id Patient Instructions Last Modified By Organization Details Last Modified Time 05/31/2019 [id number] tips to help you stay healthy Not available 05/31/2019 13:42:26 When You Want to Lose Weight: Care Instructions Not available 05/31/2019 13:42:26 08/18/2020 [id number] When You Want to Lose Weight: Care Instructions Not available 08/18/2020 15:03:13 tips to help you stay healthy Not available 08/18/2020 15:03:13 05/22/2022 [id number] tips to help you stay healthy Not available 05/22/2022 12:00:31 07/04/2023 [id number] tips to help you stay healthy Not available 07/04/2023 15:22:19 Reason for Referral None Reported. Results Created Date Observation Date Name Description Value Unit Range Abnormal Flag Note LastModifiedBy Organization Detail LastModifiedTime 09/26/2017 pregn leonor test, urine Result negati ve Not Available In-Office Order Internal Use Only DO Not Attach Compendium DO Not Attach Compendium, Do Not Delete/merge, [id number] 09/26/2017 13:32:47 05/31/19 20 05/31/2019 HPV DNA, high- risk HPV MRNA E6/E7 Negati ve negati ve APTIM A HPV assay detec ts 14 high risk HPV types (HPV 16,18 ,31,3 3,35, 39,45 ,51,5 2,56, 58,59 ,66,6 8). The assay is FDA appro pool for testi ng ThinP rep liqui d Pap vials but not FDA appro pool for detec ting HPV in SureP ath liqui d Pap speci mens. In-ho use valid ation has shown the assay can detec t all HPV types from [facility] Not Available [facility] [address] [place], [address] 06/03/2019 06:52:42 05/31/19 20 05/31/2019 pap, IG + HPV report Report Final Gynec ologi rajan Cytol ogy Repor t ----- ----- ----- ----- ----- ----- ----- ----- ----- ----- ----- ----- ThinP rep Pap Test, HPV Scree n, Refle x HPV Genot ype SPECI MEN ADEQU ACY: SATIS FACTO RY FOR EVALU ATION ; ENDOC ERVIC AL/TR ANSFO RMATI ON ZONE COMPO NENT PRESE NT. INTER PRETA TION: NEGAT JOSE FOR INTRA EPITH ELIAL ABIMBOLA Goldberg OR NICHOLE SALDANA . Elect cristian Terry d: Blaine Peña, POLINA (ASCP ) ----- ----- ----- ----- ----- ----- ----- ----- ----- ----- ----- ----- CLINI RAJAN INFOR DAVID N: LMP: NG Clini rajan Histo ry: RTN Speci men Sourc e: Cervi x, Endoc ervix Previ ous Pap Date: 12/28 HPV RESUL TS: HPV mRNA E6/E7 19 Appro pool: 06/01 Negat jose REF RANGE : Negat jose CPT Codes : 75526 ICD Codes : Z01.4 19 Not Available [facility] [address] [place], [address] 06/03/2019 06:52:44 05/23/19 23 05/31/2022 THINP REP TIS PAP AND HPV MRNA E6/E7 WITH REFLE X TO HPV 16,18 /45 clinical information: normal None given Not Available [facility] [address], [place], [address], 05/31/2022 15:03:30 05/23/19 23 05/31/2022 THINP REP TIS PAP AND HPV MRNA E6/E7 WITH REFLE X TO HPV 16,18 /45 LMP: normal NONE GIVEN Not Available [facility] [place] [facility] [address], [place], [address], 05/31/2022 15:03:30 05/23/19 23 05/31/2022 THINP REP TIS PAP AND HPV MRNA E6/E7 WITH REFLE X TO HPV 16,18 /45 prev. Pap: normal NONE GIVEN Not Available [facility] [place] [facility] [address], [place], [address], 05/31/2022 15:03:30 05/23/19 23 05/31/2022 THINP REP TIS PAP AND HPV MRNA E6/E7 WITH REFLE X TO HPV 16,18 /45 prev. BX: normal NONE GIVEN Not Available [facility] [address], [place], [address], 05/31/2022 15:03:30 05/23/19 23 05/31/2022 THINP REP TIS PAP AND HPV MRNA E6/E7 WITH REFLE X TO HPV 16,18 /45 source: normal Cervi x, Endoc ervix Not Available [facility] [place] [facility] [address], [place], [address], 05/31/2022 15:03:30 05/23/19 23 05/31/2022 THINP REP TIS PAP AND HPV MRNA E6/E7 WITH REFLE X TO HPV 16,18 /45 statement of adequacy: normal Satis facto ry for evalu ation . Endoc ervic al/tr ansfo rmati on zone compo nent prese nt. Age and/o r menst rual statu s not provi ded Not Available [facility] [place] [facility] [address], [place], [address], 05/31/2022 15:03:30 05/23/19 23 05/31/2022 THINP REP TIS PAP AND HPV MRNA E6/E7 WITH REFLE X TO HPV 16,18 /45 interpretati on/result: normal Negat jose for intra epith elial lesio n or nichole saldana . Not Available [facility] [address], [address], 05/31/2022 15:03:30 05/23/19 23 05/31/2022 THINP REP TIS PAP AND HPV MRNA E6/E7 WITH REFLE X TO HPV 16,18 /45 comment: normal This Pap test has been evalu ated with compu villalta techn ology . Not Available [facility] [address], [address], 05/31/2022 15:03:30 05/23/19 23 05/31/2022 THINP REP TIS PAP AND HPV MRNA E6/E7 WITH REFLE X TO HPV 16,18 /45 cytotechnolo gist: normal SXA, CT( CP) CT scree tia locat ion: [facility] [address], [place] [address] Not Available [facility] [address], [address], 05/31/2022 15:03:30 05/23/19 23 05/31/2022 THINP REP TIS PAP AND HPV MRNA E6/E7 WITH REFLE X TO HPV 16,18 /45 review cytotechnolo gist: normal VIDYA, CT( CP) CT scree tia locat ion: [facility] [address], [place] [address] Not Available [facility] [place] [facility] [address], [address], 05/31/2022 15:03:30 05/23/19 23 05/31/2022 THINP REP TIS PAP AND HPV MRNA E6/E7 WITH REFLE X TO HPV 16,18 /45 comment EXPLA NATOR Y NOTE: The Pap is a scree tia test for cervi rajan cance r. It is not a diagn ostic test and is subje ct to false negat jose and false posit jose resul ts. It is most relia ble when a satis facto ry sampl e, regul olga lidia obtai sergio, is submi tted with relev ant clini rajan findi ngs and histo ry, and when the Pap resul t is evalu ated along with histo margie and curre nt clini rajan infor david n. Not Available [facility] [place] [facility] [address], [address], 05/31/2022 15:03:30 05/23/19 23 05/31/2022 THINP REP TIS PAP AND HPV MRNA E6/E7 WITH REFLE X TO HPV 16,18 /45 HPV MRNA E6/E7 Not Detect ed not detect ed normal Metho dolog y: Trans cript ion-M ediat ed Ampli ficat ion This assay detec ts E6/E7 viral messe nger RNA (mRNA ) from 14 high- risk HPV types (16,1 8,31, 33,35 ,39,4 5,51, 52,56 ,58,5 9,66, 68). Cervi rajan sourc es are requi red for HPV testi ng. If a vagin al sourc e from a patie nt who has had a total hyste recto my with remov al of cervi x was submi tted, pleas e conta ct the testi ng labor atory for alter nativ e testi ng optio ns. For addit ional infor david goldberg plemami e refer to http: //brianna goldberg.que stdia gnost ics.c om/fa q/FAQ 129v1 (This link if provi ded for infor david goldberg/ joselyn rivas purpo ses only. ) Not Available [facility] [place] [facility] [address], [address], 05/31/2022 15:03:30 10/02/19 18 10/01/2017 US, trans vagin al RAD hpudvah [facility] [address] [facility], [place], [address] 10/29/2017 15:01:52 06/28/19 20 MAMMO , scree tia, digit al, bilat eral [facility] [address] [place] [address] MAMMO SCREEN ING MAR BILATE RAL RAEGAN WILBURN Sex: F : [phone] Servic e Date: 06-26 [id number] BILATE RAL MAMMOG TELMA WITH TOMOSY NTHESI S CLINIC AL INDICA TION:R OUTINE SCREEN ING COMPAR JUSTICE EXAM(S ): 1959 TECHNI QUE: Bilate ral breast tomosy nthesi s was perfor med in MLO and CC projec tions. Comput er aided detect ion was utiliz ed in the interp retati on of this study. FINDIN GS: A modera te amount of residu al fibrog landul ar tissue is seen in both breast s. There are no suspic ious calcif icatio ns. There is a possib le new nodule in the outer left breast . No domina nt mass is seen within the right breast . No change is seen from the prior exam. IMPRES PAM: There is a possib le new nodule within the left breast . The patien t will return for spot tomogr aphic exams of the left breast in the MLO and CC projec tions. BREAST DENSIT Y: There are scatte red fibrog landul ar densit ies (appro ximate ly 25%-50 %). BI-RAD CATEGO RY: OM Incomp lete: Need Additi onal Imagin g Evalua tion Additi onal mammog telma views recomm ended 3340F :L: Bilat :A: Incomp lete :R: Additi onal V :D: Scatte red Signed By: Shirley james MD, 06/28 15:05: 15 albino [facility] (Imaging) [address] [place], [address], 06/30/2019 14:33:45 07/02/19 20 mammo diagn [facility]stic mar left( [facility] [facility] [address] [place] [phone] MAMMO DIAGNO STIC MAR LEFT([facility] RAEGAN WILBURN Sex: F : [id number] [phone] Servic e Date: 07-02 [id number] UNILAT ERAL LEFT DIAGNO STIC MAMMOG TELMA WITH TOMOSY NTHESI S CLINIC AL INDICA TION: left breast nodule COMPAR JUSTICE EXAM(S ): 2019 and 2015 TECHNI QUE: Spot tomogr aphic imagin g of the left breast was perfor med in the MLO and CC projec tions. FINDIN GS: There is a benign -appea ring nodule in the slight ly upper and outer aspect of the breast . BREAST DENSIT Y: There are scatte red fibrog landul ar densit ies (appro ximate ly 25%-50 %). ULTRAS OUND OF THE LEFT BREAST Techni que: Target ed ultras ound of the breast was perfor med utiliz ing color- flow and mays-s kiran imagin g. CLINIC AL INDICA TION: Abnorm al mammog vidya Findin gs: Target ed ultras ound was perfor med from the 2 o'cloc k positi on to 4 o'cloc k positi on. No cyst or solid lesion is identi fied. Impres pam: There is a benign -appea ring nodule seen in the slight ly upper and outer aspect of the left breast which is not seen by ultras ound and a 6-nadine h follow -up mammog vidya is recomm ended to ensure stabil ity. BI-RAD S CATEGO RY: 3 Probab le Benign Findin g; 6 month follow -up 3343F :L: Lt :A: Prob Benign :R: Mamm 6 month :D: Scatte red Signed By: Shirley james MD, 07/02 15:42: 47 Callba ck/[facility] depart ment to link desaijsoe [email or web address] [facility] ([facility]) [address] [place], [address], 07/05/2019 11:07:22 03/24/20 20 mammo diagn ostic mar left( gh [facility]) [facility] [facility] [address] [place] [address] [facility] RAEGAN WILBURN Sex: F : [id number] [id number] Servic e Date: 2019-05 [id number] UNILAT ERAL LEFT MAMMOG TELMA WITH TOMOSY NTHESI S CLINIC AL INDICA TION: Breast nodule LEFT COMPAR JUSTICE EXAM(S ): 2019 TECHNI QUE: Unilat eral breast tomosy nthesi s was perfor med and images were displa yed in the MLO and CC projec tions. Comput er aided detect ion was utiliz ed in the interp retati on of this study. FINDIN GS: A modera te amount of residu al fibrog landul ar tissue is seen in the breast . A benign -appea ring nodule is seen in the outer and slight ly inferi or aspect of the left breast , unchan ged. There are no suspic ious calcif icatio ns. IMPRES PAM: There is no radiog raphic eviden ce of malign leonor. Routin e screen ing mammog telma is recomm ended. BREAST DENSIT Y: There are scatte red fibrog landul ar densit ies (appro ximate ly 25%-50 %). BI-RAD CATEGO RY: 2 Benign findin g; non-sp ecific 3342F :L: Lt :A: Benign :R: Mamm 1 Yr :D: Scatte red Signed By: Shirley james MD, 05/24 15:11: 17 [facility] ([facility]) [address], [place], [address], 03/27/2020 13:09:26 12/14/19 21 12/09/2020 MAMMO , scree tia, digit al, bilat eral No observ ation record ed. [email or web address] [facility] [address] [place] [address], [address], 12/14/2020 08:34:40 06/24/19 23 06/22/2022 MAMMO , scree tia, digit al, bilat eral No observ ation record ed. [email or web address] Not Available 2022 16:33:16 Result Notes None recorded. Problems Name Problem SNOMED Code Status Onset Date Resolution Date Notes Provider Name and Address Organization Details Recorded Time Morbid obesity 701883588 Active MADDIE MO [address] [facility], [address] [place], [address] , [facility] 6 15:36:08 Dysfunctional uterine bleeding Active Sandra ariza, [facility] 5 10:53:08 Problem Notes None recorded. Procedures Surgical History Date Name Laterality Status Provider Name and Address Organization Details Recorded Time 04/25/20 21 laparoscopic sleeve gastrectomy completed Naeem Diaz [facility] 05/22/2022 11:38:58 12/10/19 21 Date of Last Mammogram completed LUX SANDY APRN [address] [facility], [address] [place], [address], [facility] 05/22/2022 11:47:33 12/21/19 20 repair of long head of biceps brachii completed MADDIE MO [address] [facility], [address] [place], [address], [facility] 08/18/2020 14:44:18 05/31/19 20 L7O-BCI completed MADDIE MO [address], [place], [address], [place] [facility] 05/31/2019 13:39:49 05/31/19 20 Date of Last Pap Smear completed LUX SANDY APRN [address], [place], [address], [place] [facility] 05/22/2022 11:47:13 10/24/19 17 Hysteroscopy completed Teresa Walker MD [place] [facility] 10/31/2016 12:03:15 09/10/19 17 Saline Infusion Sonogram (SIS) completed Teresa Walker MD [facility] 09/09/2016 09:32:35 09/03/19 17 Endometrial Biopsy Procedure Note completed MADDIE MO [address], [place], [address], [place] [facility] 09/02/2016 09:39:45 12/29/19 16 [id number] completed MADDIE MO [address], [place], [address], [place] [facility] 12/29/2015 15:34:36 12/29/19 16 F8H-BLS completed MADDIE MO [address], [place], [address], [place] [facility] 12/29/2015 15:34:36 12/29/19 16 [id number] completed MADDIE MO [address], [place], [address], [place] [facility] 12/29/2015 15:34:36 12/29/19 16 [id number] completed MADDIE MO [address], [place], [address], [place] [facility] 12/29/2015 15:34:36 Imaging Results Imaging Date Name Status LastModified by Organization Details LastModified Time 10/01/2017 US, transvaginal completed [facility]ud[facility] [address] [facility], [place], [address] 10/29/2017 15:01:52 06/28/2019 MAMMO, screening, digital, bilateral completed [facility] ([facility]) [address] [place], [address], 06/30/2019 14:33:45 07/02/2019 mammo diagnostic mar left(formerly [facility]) completed [facility]) [address] [place], [address], 07/05/2019 11:07:22 03/24/2020 mammo diagnostic mar left(formerly [facility]) completed [facility]) [address] [place], [address], 03/27/2020 13:09:26 12/09/2020 MAMMO, screening, digital, bilateral completed [email or web address] [facility] [address] [place] [address], [address], 12/14/2020 08:34:40 06/22/2022 MAMMO, screening, digital, bilateral completed [email or web address] Information not available 06/24/2022 16:33:16 Procedure Notes None recorded. Medical Equipment None Reported. Allergies Allergen ID Allergen Name Allergen Category Reaction Reaction Severity Criticality Documentation Date Start Date Code Code System Note Provider Name and Address Organization Details Recorded Time [id number] fluticaso ne / salmetero l medicatio n Not available Not available Not available 08/18/2020 35002 5 RxNorm Silvia ariza, [facility] 14:28:51 [id number] levothyro xine sodium medicatio n Not available Not available Not available 08/18/2020 88761 RxNorm Silvia ariza, [facility] 14:28:57 [id number] codeine medicatio n Not available Not available Not available 08/18/2020 2670 RxNorm Silvia Chamberlain null, [facility] 1 14:29:10 [id number] metoprolo l Not available Not available Not available Not available 05/22/2022 6918 RxNorm Naeem Diaz null, [facility] 3 11:34:07 [id number] metformin medicatio n myalgias (muscle pain) severe Not available 07/04/2023 6809 RxNorm Isamar Akhtar [facility], [facility] 4 15:07:22 330556 skin cleanser combinati on no. 4 Not available Not available Not available Not available 10/11/20142013 COMME NT: CAUSA TIVE AGENT : MINOC [place]; Isamar Akhtar [facility], [facility] 4 15:06:56 [id number] minocycli ne hydrochlo ride medicatio n Not available Not available Not available 10/11/20142013 6979 RxNorm COMME NT: CAUSA TIVE AGENT : [place]OC [place]; Not Available [facility] 5 17:50:58 Medications Name Sig Start Date Stop Date Status Note LastModified by Organization Details LastModified Time compound drug 09/26 completed Not Available Not Available Not Available cyclobenzap rine 10 mg tablet 09/26 completed Not Available Not Available Not Available medroxyprog esterone 10 mg tablet TAKE 1 TABLET BY MOUTH EVERY DAY FOR 10 DAYS active Not Available Not Available No t Available desonide 0.05 % topical cream 05/31 completed Not Available Not Available Not Available metformin 500 mg tablet TAKE 1 TABLET BY MOUTH EVERY DAY WITH MEALS FOR 7 DAYS THEN INCREASE TO 1 TABLET BY MOUTH TWICE DAILY WITH MEALS active Not Available Not Available No t Available Plaquenil 200 mg tablet 05/22 completed Not Available Not Available Not Available tizanidine 2 mg tablet 08/18 completed Not Available Not Available Not Available cetirizine 10 mg tablet active Not Available Not Available Not Available azithromyci n 250 mg tablet 05/22 completed Not Available Not Available Not Available ibuprofen 800 mg tablet 09/26 completed Not Available Not Available Not Available Synthroid 200 mcg tablet Take 1 tablet every day by oral route. active Not Available Not Available No t Available hydrocodone 5 mg-acetamin ophen 325 mg tablet TAKE 1 TABLET BY MOUTH EVERY 4 TO 6 HOURS NEEDED FOR PAIN 05/22 completed Not Available Not Available Not Available tretinoin 0.025 % topical cream 05/31 completed Not Available Not Available Not Available meloxicam 15 mg tablet 05/31 completed Not Available Not Available Not Available prednisone 20 mg tablet 08/18 completed Not Available Not Available Not Available spironolact one 100 mg tablet TAKE 1 TABLET BY MOUTH DAILY active Not Available Not Available No t Available propranolol ER 60 mg capsule,24 hr,extended release TK ONE C PO ONCE D FOR 30 DAYS 05/22 completed Not Available Not Available Not Available gabapentin 400 mg capsule 08/18 completed Not Available Not Available Not Available sumatriptan 50 mg tablet 08/18 completed Not Available Not Available Not Available topiramate 25 mg tablet active Not Available Not Available Not Available tretinoin 0.05 % topical cream 05/31 completed Not Available Not Available Not Available ciprofloxac in 500 mg tablet TAKE 1 TABLET BY MOUTH DAILY active Not Available Not Available No t Available clindamycin 1 %-benzoyl peroxide 5 % topical gel 05/31 completed Not Available Not Available Not Available tramadol 50 mg tablet 08/18 completed Not Available Not Available Not Available spironolact one 25 mg tablet 05/31 completed Not Available Not Available Not Available butalbital- acetaminoph en-caffeine 50 mg-325 mg-40 mg tablet TAKE ONE TABLET BY MOUTH EVERY 8 HOURS NEEDED 08/18 completed Not Available Not Available Not Available amoxicillin 500 mg tablet TAKE 1 TABLET BY MOUTH EVERY 8 HOURS UNITL GONE 05/22 completed Not Available Not Available Not Available cefadroxil 500 mg capsule 05/31 completed Not Available Not Available Not Available amitriptyli ne 25 mg tablet active Not Available Not Available Not Available methocarbam ol 750 mg tablet 08/18 completed Not Available Not Available Not Available Synthroid 25 mcg tablet Take 1 tablet every day by oral route. active Not Available Not Available No t Available amitriptyli ne 10 mg tablet 05/22 completed Not Available Not Available Not Available meclizine 25 mg tablet TAKE 1 TABLET BY MOUTH DAILY NEEDED FOR MOTION SICKNESS 05/22 completed Not Available Not Available Not Available rizatriptan 10 mg disintegrat ing tablet DISSOLVE 1 TABLET ON THE TONGUE AT ONSET OF MIGRAINE HEADACHE NEEDED. MAY REPEAT IN 1-2 HOURS IF NOT HEADACHE- FREE active Not Available Not Available No t Available pantoprazol e 40 mg tablet,santos yed release active Not Available Not Available Not Available propranolol ER 80 mg capsule,24 hr,extended release TAKE 1 CAPSULE BY MOUTH DAILY active Not Available Not Available No t Available diclofenac potassium 50 mg tablet Take 1 tablet twice a day by oral route. 09/26 completed Not Available Not Available Not Available Synthroid 50 mcg tablet 05/22 completed Not Available Not Available Not Available lisinopril 30 mg tablet Take 1 tablet every day by oral route. 05/31 completed Not Available Not Available Not Available gabapentin 300 mg capsule Take 1 capsule every day by oral route. 05/31 completed Not Available Not Available Not Available montelukast 10 mg tablet Take 1 tablet every day by oral route. active Not Available Not Available No t Available Synthroid 112 mcg tablet Take 2 tablets every day by oral route. active Not Available Not Available No t Available gabapentin 100 mg capsule 05/31 completed Not Available Not Available Not Available metoprolol succinate ER 25 mg tablet,exte nded release 24 hr 08/18 completed Not Available Not Available Not Available propranolol ER 120 mg capsule,24 hr,extended release active Not Available Not Available Not Available albuterol sulfate HFA 90 mcg/actuati on aerosol inhaler INHALE 2 PUFFS BY MOUTH EVERY 6 HOURS NEEDED FOR SHORTNESS OF BREATH OR WHEEZING active Not Available Not Available No t Available fluocinonid e 0.05 % topical cream 05/31 completed Not Available Not Available Not Available losartan 100 mg tablet 05/31 completed Not Available Not Available Not Available SF 5000 Plus 1.1 % dental cream USE ONCE A DAY PER DENTIST DIRECTION active Not Available Not Available No t Available clotrimazol e 1 % topical cream APPLY TOPICALLY TO THE AFFECTED AREA TWICE DAILY active Not Available Not Available No t Available naratriptan 2.5 mg tablet TAKE 1 TABLET BY MOUTH NEEDED MIGRAINE AT ONSET OF HEADACHE. MAY REPEAT IN 4 HOURS IF NOT RESOLVED. DO NOT EXCEED 2 TABLETS IN 24 HOURS 08/18 completed Not Available Not Available Not Available spironolact one 50 mg tablet 05/31 completed Not Available Not Available Not Available amoxicillin 875 mg-potassiu m clavulanate 125 mg tablet TAKE 1 TABLET BY MOUTH TWICE DAILY FOR 10 DAYS 05/22 completed Not Available Not Available Not Available oxycodone 5 mg tablet take 1 tablet by mouth every 4 hours if needed up to 7 days 08/18 completed Not Available Not Available Not Available clindamycin 1 % lotion 05/31 completed Not Available Not Available Not Available Vitamin C 500 mg capsule,ext ended release Take by oral route. active Not Available Not Available No t Available magnesium 200 mg tablet Take by oral route. active Not Available Not Available No t Available Vitamin D3 25 mcg (1,000 unit) tablet Take by oral route. 05/22 completed Not Available Not Available Not Available Motrin 800 mg 08/18 completed Not Available Not Available Not Available Aspir-81 09/26 completed Not Available Not Available Not Available Tylenol active Not Available Not Avail able Not Available Zantac Maximum Strength 08/18 completed Not Available Not Available Not Available diclofenac 1 % topical gel 09/26 completed Not Available Not Available Not Available Tart Dsouza active Not Available Not A vailable Not Available Zyrtec 10 mg capsule Take by oral route. 07/26 completed Not Available Not Available Not Available Natazia 3 mg/2 mg-2 mg/2 mg-3 mg/1 mg tablet TAKE 1 TABLET DAILY 07/26 completed Not Available Not Available Not Available Contrave 8 mg-90 mg tablet,exte nded release 05/31 completed Not Available Not Available Not Available clindamycin 1 %-benzoyl peroxide 5 % topical gel with pump 08/18 completed Not Available Not Available Not Available Nurtec ODT 75 mg disintegrat ing tablet 05/22 completed Not Available Not Available Not Available Ajovy 225 mg/1.5 mL subcutaneou s auto-inject or USE 1 AUTO-INJE CTOR MONTHLY active Not Available Not Available No t Available Vitals Date Recorded Body height Provider Name an d Address Organization Details Last Updated DateTime 09/26/2017 165[address] [facility] 09/26/2017 12:55:44 Date Recorded Body mass index (BMI) Body weight Provider Name and Address Organization Details Last Updated DateTime 09/26/2017 52.1 kg/m2 407744.41 g Silvia Chamberlain [facility] 09/26/2017 12:55:54 Date Recorded Body weight Provider Name an d Address Organization Details Last Updated DateTime 05/31/2019 024151.52 g Leticia [facility] 05/31/2019 13:04:29 Date Recorded Body mass index (BMI) Body height Provider Name and Address Organization Details Last Updated DateTime 05/31/2019 54.1 kg/m2 165.1 cm Leticia Richter [facility] 05/31/2019 13:04:33 Date Recorded Body weight Provider Name an d Address Organization Details Last Updated DateTime 08/18/2020 738724.37 perry Chamberlain [facility] 08/18/2020 14:27:52 Date Recorded Body mass index (BMI) Body height Provider Name and Address Organization Details Last Updated DateTime 08/18/2020 52.9 kg/m2 165.1 cm Silvia Garcialin [facility] 08/18/2020 14:31:18 Date Recorded Body height Provider Name an d Address Organization Details Last Updated DateTime 05/22/2022 165.1 cm Naeem Diaz [facility] 05/22/2022 11:33:40 Date Recorded Body mass index (BMI) Body weight Provider Name and Address Organization Details Last Updated DateTime 05/22/2022 46.1 kg/m2 148165.09 perry Hartley [facility] 05/22/2022 11:33:48 Date Recorded Body height Provider Name an d Address Organization Details Last Updated DateTime 07/04/2023 165.1 cm Isamar Akhtar [facility] 07/04/2023 15:07:37 Date Recorded Body mass index (BMI) Body weight Provider Name and Address Organization Details Last Updated DateTime 07/04/2023 49.9 kg/m2 874755.71 g Isamar Akhtar [facility] 07/04/2023 15:07:43 Date Recorded Systolic blood pressure Diastolic blood pressure Provider Name and Address Organization Details Last Updated DateTime 09/26/2017 124 mm[Hg] 80 mm[Hg] Silvia Chamberlain [facility] 09/26/2017 12:59:25 Date Recorded Systolic blood pressure Diastolic blood pressure Provider Name and Address Organization Details Last Updated DateTime 05/31/2019 122 mm[Hg] 78 mm[Hg] Leticia Rober [facility] 05/31/2019 13:06:15 Date Recorded Systolic blood pressure Diastolic blood pressure Provider Name and Address Organization Details Last Updated DateTime 08/18/2020 110 mm[Hg] 80 mm[Hg] Silvia Chamberlain [facility] 08/18/2020 14:32:56 Date Recorded Systolic blood pressure Diastolic blood pressure Provider Name and Address Organization Details Last Updated DateTime 05/22/2022 118 mm[Hg] 84 mm[Hg] Naeem Diaz [facility] 05/22/2022 11:38:11 Date Recorded Systolic blood pressure Diastolic blood pressure Provider Name and Address Organization Details Last Updated DateTime 07/04/2023 120 mm[Hg] 60 mm[Hg] Isamar Akhtar [facility] 07/04/2023 15:09:49 Social History Question Answer Notes LastModified by Organizat ion Details LastModified Time Tobacco Smoking Status [facility] 10:34:01 What Is Your Level Of Alcohol Consumption? Occasional Information not available 05/22/2022 Concerns About Meeting Basic Needs (food, Housing, Heat, Etc)? No Information not available 05/22/2022 Are You Currently Employed? Yes Information not available 05/22/2022 Do You Or Have You Ever Used E-cigarettes Or Vape? 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 Yes Information not available 05/31/2019 Does Your Partner Physically Hurt You Or Threaten To Hurt You? No Information not available 05/22/2022 Has Your Partner Forced You To Have Sex Or Perform Sex Acts When You Did Not Want To? No Information not available 05/22/2022 Does Your Partner Insult, Scream At Or Talk Down To You? No Information not available 05/22/2022 Does Your Partner Control You Or Any Part Of Your Life? No Information not available 05/22/2022 Are You Afraid Of Your Partner? No Information not available 05/31/2019 Do You Feel Safe At Home? Yes Information not available 05/31/2019 What Was The Date Of Your Most Recent Tobacco Screening? 07/04/2023 [email or web address] Information not available 07/04/2023 How Many Children Do You Have? 1 Information not available 08/18/2020 Are You Sexually Active? Yes [email or web address] Information not available 07/04/2023 Do You Or Have You Ever Used Smokeless Tobacco? Never Used Smokeless Tobacco Information not available 05/22/2022 How Much Tobacco Do You Smoke? No Information not available 08/18/2020 Sex: Unknown Functional Status Question Answer Note LastModified by Organizat ion Details LastModified Time What is your exercise level? Occasional once a week at gym [email or web address] Information not available 07/04/2023 Mental Status None recorded. Family History Relationship Description Onset Age of this Age Resolved Age Notes LastModified by Organization Details LastModified Time Mother Diffuse non-Hodgkin' s lymphoma [email or web address] Not available 0 07/04/2023 14:25:11 Maternal Grandmother Malignant tumor of breast 80 Not available 2019 13:17:01 Notes:no fh of uterine, ovar rogers or colon cancer Medical History Condition Response HIV N Anxiety Disorder N Diabetes N Heart Problems N HSV N Acid Reflux (GERD) Y Cancer N Stroke Y Thyroid Problems Y Depression N Asthma Y GI Problems N Anemia Y Headaches/Migraines Y Fibromyalgia Y Hypertension Y Thrombophilias N Gynecological History Statement/Question Response Abnormal Pap N Date of Last Mammogram 12/09/2020 Date of LMP 05/16/2022 IPV Screen Done 08/18/2020 STIs/STDs N Sexual Orientation heterosexual Current Control Method IUD-Mirena Frequency of Cycle (Q days) 28 Sexually Active? Y Bladder Problems N Sexual Problems? N Date of Last Pap Smear 05/31/2019 Obstetrics History GPAL:G 6 P 0 1 5 1 Type Value Multiple Births 1 Full Term 0 Induced 0 Spontaneous 5 Premature 1 Living 1 Ectopics 0 Total 6 Past Encounters Encounter ID Performer Location Encounter Start Date Encounter Closed Date Diagnosis/Indication Diagnosis SNOMED-CT Code Diagnosis ICD10 Code Diagnosis Note [id number] [facility] [address] [place] [id number] 1 01/23/2011 00:00:00 [id number] [facility] [address] [place] [address] [id number] 1 07/03/2011 00:00:00 [id number] [facility] [address] [place] [address] [id number] 1 07/19/2011 00:00:00 [id number] [facility] [address] [place] [address] [id number] 1 08/08/2011 00:00:00 [id number] [facility] [address] [place] [address] [id number] 1 09/13/2011 00:00:00 [id number] [facility] [address] [place] [address] [id number] 1 01/31/2012 00:00:00 [id number] [facility] [address] [place] [address] [id number] 1 09/25/2012 00:00:00 [id number] [facility] [address] [place] [address] [id number] 1 11/04/2013 00:00:00 [id number] TOG[address] [id number] 12/27/2014 10:23:04 12/27/2014 10:45:30 Gynecologic examination 45202934 Dysfunctio nal uterine bleeding 15078926 [id number] MADDIE MO TOG1 [address] [id number] 12/29/2015 14:02:30 12/29/2015 14:49:09 Gynecologic examination 75387527 Z01.419 Exam wnl. PAP done. Discussed in depth the risks of being on an OCP with elevated BMI, over age 35, and HTN including increased risk for blood clots/stro kes. Advised pt to stop OCP and consider an Mirena IUD. Pt unsure if she desires an IUD. She is ok without hormonal contracept ion for control, will use condoms. Pt unsure if her menses caused her anemia. Pt to stop OCP and monitor periods. If become heavy pt to call to schedule Mirena IUD insertion. If pt does not get a period for longer than 2 months advise pt to use provera as needed. Pt to call if desires IUD or needs provera. Baseline mammo recommende d. F/u in 1 year for annual or prn. Morbid obesity 468856022 E66.01 Discussed diet, habits, exercise and weight loss programs that are suitable. Encouraged small changes. [id number] MADDIE MO TOG1 [address] [address] 07/26/2016 13:38:21 07/26/2016 14:19:50 Amenorrhea 71102125 N91.2 Lack of menses likely due to morbid obesity/PC OS. Will check blood work. Pt to start provera 10mg x10 days. Discussed continuing provera x10 days ? q3 months, or aygestin x10 days monthly or IUD. Will discuss further after blood results. Discussed weight loss and exercise in depth and the importance for return of menses and overall health. [id number] MDADIE MO TOG1 [address] [id number] 09/02/2016 08:55:45 09/02/2016 09:34:28 Amenorrhea 09605448 N91.2 EBX done, sent to pathology. Pt has sonohyst next week. Will continue with provera q2 ? months at this time. [id number] Teresa Walker MD TOG1 [address] [id number] 09/09/2016 09:06:11 09/09/2016 09:34:45 Polyp of corpus uteri 64737218 N84.0 [id number] Teresa Walker MD TOGCielo [address],[place] [address] 09/13/2016 14:22:18 09/13/2016 14:50:26 Abnormal uterine bleeding 0005257381 9100 N93.9 [id number] Teresa Walker MD TOGCielo [address],[place] [facility] [place] [address] 10/11/2016 10:16:25 10/11/2016 10:47:37 Abnormal uterine bleeding 5533838106 9100 N93.9 [id number] Teresa Walker MD TOG [address] [place] [address] 11/04/2016 09:00:37 11/04/2016 09:21:33 Postoperative visit 015485001 Z09 [id number] MADDIE MO TOG [address] [place] [address] 09/26/2017 12:51:06 09/26/2017 13:36:33 Pain in pelvis 41003568 R10.2 Exam benign except pt developed cramping after exam. Discussed possible ovarian cyst or IUD malpositon although IUD strings are appropriat e length. Minimal bleeding. Had nml urine testing with PCP. Neg preg test. Will check pelvic US. [id number] MADDIE MO [address] [place] [address] 05/31/2019 12:56:14 05/31/2019 13:34:42 Gynecologic examination 44403452 Z01.419 Exam wnl. PAP collected. Screening mammo recommende d. F/u in 1 year for annual or prn. Morbid obesity 112976656 E66.01 Discussed diet, exercise and weight loss programs, specifical ly weight watchers. [id number] MADDIE MO TOG1 [address] [place] [address] 08/18/2020 14:22:00 08/18/2020 14:54:00 Gynecologic examination 70624330 Z01.419 Exam wnl. PAP deferred, nml 2020. Screening mammo ordered. F/u in 1 year for annual or prn. Obesity 506735187 E66.9 Pt lost 30lbs last year prior to onset of migraines. Working on diet to continue weight loss efforts. [id number] LUX SANDY, VARIOUS EXCEPTIONALITIES TEACHER TOG1 [address] [address] [facility] [address], [place] [address] 05/22/2022 11:25:55 05/22/2022 13:06:10 Gynecologic examination 77147858 Z01.419 Discussed health diet, exercise, breast self-aware ness. Pap performed today. Referral for mammo. Mirena due for replacemen t 09/2024. f/u in 1 year for annual exam. [id number] MICHAEL SCHMITTPKINS, ISAURO TOG1 [address],[place] [address] [facility], [place] [address] 07/04/2023 14:24:44 07/07/2023 06:48:32 Gynecologic examination 07108537 Z01.419 Well women exam. Pt with no complaints . Contracept ion: Patient using mirena (due to replace 09/2024) Cervical cancer screening: based on ASCCP guidelines pap smears are recommende d every 3 years with cytology alone, or every 5 years with HPV testing. Due 2027. Breast cancer screening: based on ACOG guidelines , yearly bilateral mammograms are recommende d starting at age 40. Mammogram ordered. Colon cancer screening: per USPSTF guidelines /ASC guidelines , colonoscop y is recommende d starting at age 45. Reviewed importance of weight bearing exercise for bone health and anaerobic exercise for cardiovasc ular health. Immunizati ons:did not receive HPV vaccinatio nFlu vaccinatio n. FU 1 year for annual exam. Health Concerns Section Related Observation LastModified by Organization Detai ls LastModified Time None Recorded Concern Status LastModified by Organization Details LastModified Time None Recorded Advance Directives Directive None Recorded Payers Encounter Date Sequence Insurance Name Policy Number Policy Harry Covered Member ID Harry Member ID Guarantor Name 09/26/2017 1 [place] - DOS PRIOR TO 2024 - [employer] () MARK Wilburn Jr [id number] Raegan Wilburn 05/31/2019 1 [place] - [place] PRIOR TO 2024 - [employer] () STANDARD Edward [facility] [id number] Raegan Gonzalez Levisch 08/18/2020 1 [place] - DOS PRIOR TO 2024 - [employer] () STANDARD Edward Kunsch Jr [id number] Raegan Gonzalez Levisch 05/22/2022 1 [place] - DOS PRIOR TO 2024 - [employer] () STANDARD Edward Kunsch Jr [id number] Raegan Gonzalez Kunsch 07/04/2023 1 [place] - DOS PRIOR TO 2024 - [employer] () STANDARD ward [facility] [id number] Raegan Gonzalez Levikamlesh Notes Date Note Type Note Provider Name and Address Organization Details Recorded Time 09/26/2017 text/html 37-year old here with complaint of low back pain that wraps around to the front causing pelvic cramping and bleeding for the past 3-4 weeks. Pt had an IUD placed in November 2016 for amenorrhea/anovulati on after a D&C polypectomy. She reports only spotting intermittently until this month. She saw her pcp and had neg urine testing. No concern for std exposure. Pt has tried diclofenac, naproxen and meloxicam for the pain. No urinary complaints. Hx of back pain but this is different. Pt reports the bleeding is light requiring a tampon every 3-4 hours at most. MADDIE MO [address] [place] [address], [address], [place], [address], [place] [facility] 09/26/2017 13:32:57 05/31/2019 text/html [facility] Annual GYNReported bypatient.History:no gynecologic complaints Menstrual cycle:Amenorrhea(wit h iud) Urinary symptoms:No hematuria; No incontinence Vulva:No genital lesion Vagina:Normal vaginal discharge Breast:No breast pain; No breast lump; No nipple discharge Current Contraception:Satisf ied with current contraception; Monogamous relationship; Intrauterine device (iud) Sexual activity:sexually active yes; No sexual complaints Psychological symptoms:No depression Preventive measures:Encourage self breast examination; Encourage regular exercise; Encourage no tobacco use; Encourage regular mammograms starting age 40; Followed with Q3 year pap smear and high risk HPV typing; Needs to schedule mammogramNotes:38-ye 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 Last PAP 2016, nml. Had mirena IUD placed 2017 after D&C hysteroscopy for EM polyp. No menses. No urinary complaints. Recently fell and tore something in her shoulder and broke her foot. Has tried a few different weight loss programs with little success. MADDIE MO [address] [facility], [address] [place], [address], [facility] 05/31/2019 13:42:41 08/18/2020 text/html [facility] Annual GYNReported bypatient.History:no gynecologic complaints Menstrual cycle:Amenorrhea(wit h iud) Urinary symptoms:No hematuria; No incontinence Vulva:No genital lesion Vagina:Normal vaginal discharge Breast:No breast pain; No breast lump; No nipple discharge Current Contraception:Satisf ied with current contraception; Monogamous relationship; Intrauterine device (iud) Sexual activity:sexually active yes; No sexual complaints Psychological symptoms:No depression Preventive measures:Encourage self breast examination; Encourage regular exercise; Encourage no tobacco use; Encourage regular mammograms starting age 40; Followed with Q3 year pap smear and high risk HPV typing; Needs to schedule mammogramNotes:39-ye 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 Last PAP 2019, nml. Had mirena IUD placed 2017 after D&C hysteroscopy for EM polyp. No menses. No urinary complaints. Has had a migraines for multiple weeks. Seeing neurology, found to have had a stroke, unsure when. MADDIE MO [address] [facility], [address] [place], [address], [facility] 08/18/2020 15:03:32 05/22/2022 text/html [facility] Annual GYNReported bypatient.History:no gynecologic complaints Menstrual cycle:Normal menses Urinary symptoms:No hematuria; No incontinence Vulva:No genital lesion Vagina:Normal vaginal discharge Breast:No breast pain; No breast lump; No nipple discharge Current Contraception:Satisf ied with current contraception; Intrauterine device (iud) Sexual activity:No sexual complaints; No pain during intercourse; Normal libido Psychological symptoms:No depression; No anxiety; No PMDD Preventive measures:Encourage self breast examination; Encourage regular exercise; Encourage regular mammograms starting age 40; Followed with Q3 year pap smear and high risk HPV typing; Needs to schedule mammogramNotes:Ang moser [facility] 2020. No hot flashes or night sweats. LUX SANDY APRN [address] [facility], [address] [facility], [place], [address], [facility] 05/22/2022 12:01:07 07/04/2023 text/html Pt is a 42 yo F here for an annual exam. Pt has a hx of hysteroscopy, CVA, htn, asthma, gerd, hypoT. Pt reports no complaintsLMP: spottingBirth control: mirena (placed 09/2016)Pap: 2022Mammo: 3Colonoscopy: (pcp referred for august)HPV vaccine: noFlu vaccine: yes MICHAEL CHRISTIANSON APRN [address] [facility], [address] [facility], [place], [address], [facility] 07/04/2023 15:22:27 OBGyn Episode No OBEpisode recorded.
--- OUTSIDE RECORDS SUMMARY | 2024-06-01 07:17 | XMS_ITS ---
Author Name [facility] Organization Unknown History of Medication Use Medication Directions Dispensed Refills Start Date End Date Status acetaZOLAMIDE (DIAMOX) 250 MG tablet 4 active Semaglutide-Weight Management (Wegovy) 0.25 MG/0.5ML Solution Auto-injector Inject 0.25 mg under the skin once a week. 4 active Botox 200 UNIT Injection Solution Reconstituted Botox 200 UNIT Injection Solution Reconstituted QTY: 1 each Days: 90 Refills: 3 Written: 08/01/23 Patient Instructions: as directed-inject 155 units into facial muscles every 90 days DX: G43.909 4 active hydroxychloroquine (PLAQUENIL) 200 MG tablet Take 0.5 tablets (100 mg total) by mouth every morning with breakfast. With food or milk. 4 active Montelukast Sodium 10 MG Oral Tablet Montelukast Sodium 10 MG Oral Tablet QTY: 90 tablet Days: 90 Refills: 0 Written: 07/21/23 Patient Instructions: 4 active Ajovy 225 MG/1.5ML Subcutaneous Solution Auto-injector Ajovy 225 MG/1.5ML Subcutaneous Solution Auto-injector QTY: 4 Days: 90 Refills: 0 Written: 04/23/23 Patient Instructions: 4 active Synthroid 200 MCG Oral Tablet Synthroid 200 MCG Oral Tablet QTY: 90 tablet Days: 90 Refills: 0 Written: 06/22/23 Patient Instructions: with 25 mcg to make 225 mcg dose 4 active Plaquenil 200 MG Oral Tablet Plaquenil 200 MG Oral Tablet QTY: 0 tablet Days: 0 Refills: 0 Written: 08/01/23 Patient Instructions: 4 active Montelukast Sodium 10 MG Oral Tablet Montelukast Sodium 10 MG Oral Tablet QTY: 90 tablet Days: 90 Refills: 0 Written: 04/25/23 Patient Instructions: 4 active Amitriptyline HCl 25 MG Oral Tablet Amitriptyline HCl 25 MG Oral Tablet QTY: 90 tablet Days: 90 Refills: 0 Written: 06/18/23 Patient Instructions: 4 active Cetirizine HCl 10 MG Oral Tablet Cetirizine HCl 10 MG Oral Tablet QTY: 90 tablet Days: 90 Refills: 0 Written: 07/08/23 Patient Instructions: 4 active Propranolol HCl ER 80 MG Oral Capsule Extended Release 24 Hour Propranolol HCl ER 80 MG Oral Capsule Extended Release 24 Hour QTY: 90 capsule Days: 90 Refills: 0 Written: 07/17/23 Patient Instructions: 4 active metFORMIN (GLUCOPHAGE) 500 MG tablet Take 1 tablet (500 mg total) by mouth 2 (two) times a day with meals. Start with taking 1 tablet daily with meal for 1 week, then increase to 1 tablet twice daily with meals 3 aborted Synthroid 25 mcg tablet Synthroid 25 mcg tablet 3 completed PANTOprazole (PROTONIX) 40 MG EC tablet Take 1 tablet (40 mg total) by mouth daily. 2 aborted clotrimazole (LOTRIMIN) 1 % cream Apply topically 2 (two) times a day. 3 active Ajovy 225 MG/1.5ML Solution Auto-injector 2 active tirzepatide (ZEPBOUND) 2.5 mg/0.5 mL pen-injector Inject 1 Pen (2.5 mg total) under the skin once a week. 4 active spironolactone (ALDACTONE) 100 MG tablet Take 1 tablet (100 mg total) by mouth daily. 2 active Synthroid 25 MCG tablet Take 1 tablet by mouth daily. 2 active Synthroid 25 MCG tablet Take 1 tablet (2 5 mcg total) by mouth daily. 2 active MAGNESIUM GLYCINATE PO Take 800 mg by mouth. 2 active Synthroid 200 MCG tablet Take 1 tablet by mouth daily. 2 active ascorbic acid (VITAMIN C) 500 MG tablet Take 500 mg by mouth. 2 active levonorgestrel (MIRENA) 20 mcg/24hr IUD 1 Intra Uterine Device by Intrauterine route once. 2 active albuterol sulfate HFA 90 mcg/actuation aerosol inhaler INHALE 2 PUFFS BY MOUTH EVERY 6 HOURS NEEDED FOR SHORTNESS OF BREATH OR WHEEZING INHALE 2 PUFFS BY MOUTH EVERY 6 HOURS NEEDED FOR SHORTNESS OF BREATH OR WHEEZING 3 completed Synthroid 200 MCG tablet Take 1 tablet (200 mcg total) by mouth daily. 2 active Cholecalciferol 125 MCG (5000 UT) capsule Take 5,000 Units by mouth. 2 aborted topiramate (TOPAMAX) 25 MG tablet Take 1 tablet (25 mg total) by mouth nightly. 3 active ascorbic acid (VITAMIN C) 500 MG tablet Take 1 tablet (500 mg total) by mouth. 2 active amitriptyline 25 mg tablet amitriptyline 25 mg tablet 3 completed amitriptyline (ELAVIL) 25 MG tablet Take 1 tablet (25 mg total) by mouth nightly. 2 active polyethylene glycol (miraLAx) 17 g packet Take 1 packet (17 g total) by mouth daily. 2 aborted albuterol sulfate HFA 90 mcg/actuation aerosol inhaler INHALE 2 PUFFS BY MOUTH EVERY 6 HOURS NEEDED FOR SHORTNESS OF BREATH OR WHEEZING INHALE 2 PUFFS BY MOUTH EVERY 6 HOURS NEEDED FOR SHORTNESS OF BREATH OR WHEEZING 3 completed Synthroid 200 MCG tablet Take 1 tablet (200 mcg total) by mouth daily. 2 active Cholecalciferol 125 MCG (5000 UT) capsule Take 5,000 Units by mouth. 2 aborted Multiple Vitamins-Minerals (Bariatric Fusion) Chew Tab Chew. 2 active cetirizine (ZyrTEC) 10 MG tablet Take 1 tablet (10 mg total) by mouth nightly. 2 active Vitamin C 500 mg capsule,extended release Take by oral route. Take by oral route. 3 completed Synthroid 200 mcg tablet Take 1 tablet every day by oral route. Take 1 tablet every day by oral route. 3 completed montelukast 10 mg tablet Take 1 tablet every day by oral route. Take 1 tablet every day by oral route. 3 completed montelukast (SINGULAIR) 10 MG tablet Take 1 tablet (10 mg total) by mouth. 2 active spironolactone 100 mg tablet TAKE 1 TABLET BY MOUTH DAILY TAKE 1 TABLET BY MOUTH DAILY 3 completed propranolol ER 120 mg capsule,24 hr,extended release propranolol ER 120 mg capsule,24 hr,extended release 3 completed propranolol (INDERAL LA) 80 MG 24 hr capsule 11/04/19 2 3 active albuterol (PROVENTIL HFA; VENTOLIN HFA) 108 (90 Base) MCG/ACT inhaler INHALE 2 PUFFS BY MOUTH EVERY 6 HOURS NEEDED FOR SHORTNESS OF BREATH OR WHEEZING 2 active Tylenol Tylenol 3 completed riboflavin (VITAMIN B-2) 100 MG tablet Take 1 tablet (100 mg total) by mouth daily. 2 aborted ibuprofen (MOTRIN) 400 MG tablet Take 1 tablet (400 mg total) by mouth 4 times daily (every 6 hours) as needed for mild pain. 2 aborted acetaminophen (TYLENOL) 325 MG tablet Take 3 tablets (975 mg total) by mouth 4 times daily (every 6 hours) as needed for mild pain. 2 aborted propranolol (INDERAL LA) 120 MG 24 hr capsule Take 1 capsule (120 mg total) by mouth nightly. 2 aborted pantoprazole 40 mg tablet,delayed release pantoprazole 40 mg tablet,delayed release 3 completed Ajovy 225 mg/1.5 mL subcutaneous auto-injector Ajovy 225 mg/1.5 mL subcutaneous auto-injector 3 completed levonorgestrel (MIRENA) 20 mcg/24hr IUD 1 each by Intrauterine route once. 2 active rizatriptan (MAXALT-POSTAGE MACHINE OPERATOR) 10 MG disintegrating tablet Take 1 tablet (10 mg total) by mouth once as needed. 2 active rizatriptan 10 mg disintegrating tablet DISSOLVE 1 TABLET ON THE TONGUE AT ONSET OF MIGRAINE HEADACHE NEEDED. MAY REPEAT IN 1-2 HOURS IF NOT HEADACHE-FREE DISSOLVE 1 TABLET ON THE TONGUE AT ONSET OF MIGRAINE HEADACHE NEEDED. MAY REPEAT IN 1-2 HOURS IF NOT HEADACHE-FREE 3 completed rivaroxaban (XARELTO) 10 MG tablet Take 1 tablet (10 mg total) by mouth daily. Do not start before April 27, 2021. 2 aborted Calcium 500-100 MG-UNIT Chew Tab Chew. 2 aborted cetirizine 10 mg tablet cetirizine 10 mg tablet 3 completed SF 5000 Plus 1.1 % dental cream USE ONCE A DAY PER DENTIST DIRECTION USE ONCE A DAY PER DENTIST DIRECTION 3 completed Problems Problem Status Onset Date Problem Type Date of Resolution Source Morbid obesity active ProblemAct [facility] Dysfunctional uterine bleeding active ProblemAct [facility] Morbid obesity with BMI of 45.0-49.9, adult active 2021-04-25 ProblemAct [facility] Iron deficiency anemia active 2022-10-02 ProblemAct [facility] Hypertension active 2019-04-05 ProblemAct [facility] Chronic fatigue active 2017-06-04 ProblemAct [facility] Hyperglycemia active 2020-04-21 ProblemAct [facility] T Chronic pain of left knee active 2020-03-02 ProblemAct [facility] Fibromyalgia active 2017-06-04 ProblemAct [facility] Gastroesophageal reflux disease active 2017-06-04 ProblemAct [facility] Acquired hypothyroidism active 2017-06-04 ProblemAct [facility] Migraine without status migrainosus, not intractable active 2020-06-21 ProblemAct [facility] MAURICIO (obstructive sleep apnea) active EncounterDiagnosisAct [facility] Immunizations Vaccine Date Source Lot Number Status Influenza virus quadrivalent 04/26/2022 [id number] completed
[2024-06-01 07:33] LABS: UPreg QC Valid YES; Urine Pregnancy NEGATIVE (NEGATIVE)
--- NOTE | 2024-06-01 07:42 | HO.ANESPROP2 ---
Documented by User: Rose Gooden NP 05/31/24 13:14 HPI - Anesthesia Eval Consult details Narrative: 43yo F for Colonoscopy BMI 50 PMFSH Active Problems Active Problems: All Active Problems Screening for colon cancer (Acute) Pain of left calf (Acute) Leg cramps (Acute) Pre-op evaluation (Acute) Obesity (Acute) Hypothyroid (Acute) Iron deficiency (Acute) Lipoma (Acute) Chronic migraine (Acute) Brain lesion (Acute) Migraine (Acute) Left knee pain (Acute) Physical exam (Acute) Past Medical History Medical History (Updated 02/25/24 @ 16:10 by ASHLEY West) IIH (idiopathic intracranial hypertension) Right humeral fracture Chronic GERD Iron deficiency Left Achilles tendinitis Plantar fasciitis Dyslipidemia Hypothyroid HTN (hypertension) Asthma Physical exam Right shoulder injury Family History Family History Father No problems noted. Mother Non-Hodgkins lymphoma Sister No problems noted. Brother No problems noted. Maternal Grandmother Diabetes mellitus HTN (hypertension) Degenerative disk disease Breast cancer Maternal Grandfather No problems noted. Brother No problems noted. Sister No problems noted. Surgical History Surgical History S/P gastric sleeve procedure History of sleeve gastrectomy H/O repair of right rotator cuff History of lipoma Hx of cholecystectomy History of section History of tonsillectomy and adenoidectomy Social History Social History Housing: House Alcohol intake: never Patient Tobacco Use Status: Never used Tobacco Tobacco use type: Cigarette e-Cigarette/Vaping Use: Never Used Second Hand Smoke Exposure: Yes Advance Directives: No Advance Directives Information Provided: Yes Current occupational status: employed Cognitive needs: No Hearing needs: No Vision needs: No Meds Allergies Allergy/AdvReac Type Severity Reaction Status Date / Time codeine Allergy Unknown unknown Verified 10/20/23 08:33 fluticasone [Advair Diskus] Allergy Unknown Hives Verified 10/20/23 08:33 levothyroxine sodium Allergy Unknown ITCHING, Verified 10/20/23 08:33 [LEVOTHYROXINE SODIUM] rash, itching-NAME BRAND OK minocycline [MINOCYCLINE] Allergy Unknown HEADACHE Verified 10/20/23 08:33 salmeterol [Advair Diskus] Allergy Unknown Hives Verified 10/20/23 08:33 acetaminophen [From Vicodin] AdvReac Unknown Vomiting Verified 10/20/23 08:33 hydrocodone [From Vicodin] AdvReac Unknown Vomiting Verified 10/20/23 08:33 metformin AdvReac muscle Verified 10/20/23 08:33 weakness topamate AdvReac muscle Uncoded 10/20/23 08:33 weakness Home Medications ?Medication ?Instructions ?Recorded ?Confirmed ?Last Taken ?Type amitriptyline 25 mg tablet 25 mg PO BEDTIME 05/01/20 10/20/23 Unknown History ascorbate calcium (vitamin C) 500 500 mg PO DAILY 08/08/21 10/20/23 Unknown History mg tablet multivitamin (Daily Multi-Vitamin 1 tab PO DAILY 08/08/21 10/20/23 Unknown History tablet) rizatriptan 10 mg disintegrating mg PO 08/08/21 10/20/23 Unknown History tablet magnesium glycinate 100 mg (as 400 mg PO DAILY 05/13/23 10/20/23 Unknown History glycinate) tablet hydroxychloroquine 200 mg tablet 150 mg PO DAILY 09/01/23 10/20/23 Unknown History (Plaquenil) magnesium 200 mg tablet 200 mg PO DAILY 10/20/23 10/20/23 Unknown History Assessment and Plan Assessment Anesthesia Assessment: Chart Reviewed Documented by User: Teresa Diego DO 06/01/24 07:43 [facility] Past Medical History Medical History (Updated 02/25/24 @ 16:10 by ASHLEY West) IIH (idiopathic intracranial hypertension) Right humeral fracture Chronic GERD Iron deficiency Left Achilles tendinitis Plantar fasciitis Dyslipidemia Hypothyroid HTN (hypertension) Asthma Physical exam Right shoulder injury Family History Family History Father No problems noted. Mother Non-Hodgkins lymphoma Sister No problems noted. Brother No problems noted. Maternal Grandmother Diabetes mellitus HTN (hypertension) Degenerative disk disease Breast cancer Maternal Grandfather No problems noted. Brother No problems noted. Sister No problems noted. Family history of problems with anesthesia: No Surgical History Surgical History S/P gastric sleeve procedure History of sleeve gastrectomy H/O repair of right rotator cuff History of lipoma Hx of cholecystectomy History of section History of tonsillectomy and adenoidectomy History of Problems with Anesthesia: No Social History Social History Housing: House Alcohol intake: never Patient Tobacco Use Status: Never used Tobacco Tobacco use type: Cigarette e-Cigarette/Vaping Use: Never Used Second Hand Smoke Exposure: Yes Advance Directives: No Advance Directives Information Provided: Yes Current occupational status: employed Cognitive needs: No Hearing needs: No Vision needs: No Meds Allergies Allergy/AdvReac Type Severity Reaction Status Date / Time codeine Allergy Unknown unknown Verified 10/20/23 08:33 fluticasone [Advair Diskus] Allergy Unknown Hives Verified 10/20/23 08:33 levothyroxine sodium Allergy Unknown ITCHING, Verified 10/20/23 08:33 [LEVOTHYROXINE SODIUM] rash, itching-NAME BRAND OK minocycline [MINOCYCLINE] Allergy Unknown HEADACHE Verified 10/20/23 08:33 salmeterol [Advair Diskus] Allergy Unknown Hives Verified 10/20/23 08:33 acetaminophen [From Vicodin] AdvReac Unknown Vomiting Verified 10/20/23 08:33 hydrocodone [From Vicodin] AdvReac Unknown Vomiting Verified 10/20/23 08:33 metformin AdvReac muscle Verified 10/20/23 08:33 weakness topamate AdvReac muscle Uncoded 10/20/23 08:33 weakness Home Medications ?Medication ?Instructions ?Recorded ?Confirmed ?Last Taken ?Type amitriptyline 25 mg tablet 25 mg PO BEDTIME 05/01/20 10/20/23 Unknown History ascorbate calcium (vitamin C) 500 500 mg PO DAILY 08/08/21 10/20/23 Unknown History mg tablet multivitamin (Daily Multi-Vitamin 1 tab PO DAILY 08/08/21 10/20/23 Unknown History tablet) rizatriptan 10 mg disintegrating mg PO 08/08/21 10/20/23 Unknown History tablet magnesium glycinate 100 mg (as 400 mg PO DAILY 05/13/23 10/20/23 Unknown History glycinate) tablet hydroxychloroquine 200 mg tablet 150 mg PO DAILY 09/01/23 10/20/23 Unknown History (Plaquenil) magnesium 200 mg tablet 200 mg PO DAILY 10/20/23 10/20/23 Unknown History Exam Exam Date and Time: 06/01/24 0740 Airway Mallampati Class: II TM Dist: >3cm Neck ROM: Full Loose/Missing/Broken Teeth: No (patient denies any loose or broken teeth) Heart: S1S2 Lungs: CTAB Assessment and Plan Assessment Anesthesia Assessment: Anesthesia Plan Discussed and Chart Reviewed Final Anesthetic Review Family History of Problems with Anesthesia: No History of Problems with Anesthesia: No NPO: Yes ASA Class: III Final Preanesthetic Review: No Changes in Pt Med Stat, Meds/Allgs Chart Reviewed, Consent Obtained/Reviewed and Anes Risks/Benef Reviewed Patient Risk: Intermediate Procedure Risk: Low Anesthetic Plan Anesthetic Plan: MAC: and Agree w/ Assess. and Plan Disposition: Standard PACU
[2024-06-01 07:44] VITALS: BP 135/76; PULSE 71; RESP 16; TEMP 36.3; O2SAT 100; BMI 46.9
[2024-06-01] MEDS: Lactated Ringers 1,000 ML 100 ML IVCONT (07:46)
--- NOTE | 2024-06-01 07:47 | MHC.SHP ---
Pre-Procedural Eval Section A - 24 Hr Update-Section A only Date of Service: 06/01/24 Section B - Complete if H&P > 30 days Chief Complaint: Encounter for screening for malignant neoplasm of Details of Present Illness: Right humeral fracture Chronic GERD Iron deficiency Left Achilles tendinitis Plantar fasciitis Dyslipidemia Hypothyroid HTN (hypertension) Asthma Physical exam Right shoulder injury Surgical History S/P gastric sleeve procedure History of sleeve gastrectomy H/O repair of right rotator cuff History of lipoma Hx of cholecystectomy History of section History of tonsillectomy and adenoidectomy Present Medications: see Short Stay Collaborative assessment Allergies: Allergies Allergy/AdvReac Type Severity Reaction Status Date / Time codeine Allergy Unknown unknown Verified 10/20/23 08:33 fluticasone [Advair Diskus] Allergy Unknown Hives Verified 10/20/23 08:33 levothyroxine sodium Allergy Unknown ITCHING, Verified 10/20/23 08:33 [LEVOTHYROXINE SODIUM] rash, itching-NAME BRAND OK minocycline [MINOCYCLINE] Allergy Unknown HEADACHE Verified 10/20/23 08:33 salmeterol [Advair Diskus] Allergy Unknown Hives Verified 10/20/23 08:33 acetaminophen [From Vicodin] AdvReac Unknown Vomiting Verified 10/20/23 08:33 hydrocodone [From Vicodin] AdvReac Unknown Vomiting Verified 10/20/23 08:33 metformin AdvReac muscle Verified 10/20/23 08:33 weakness topamate AdvReac muscle Uncoded 10/20/23 08:33 weakness Review of Systems Review of Systems Comment: 10 point ROS negative Exam Exam Comment: Gen appear: No acute distress HEENT: no icterus Chest: No overt resp distress Abd: soft, nontender, nondistended Psych: Stable affect, answering questions appropriately Neuro: A/Ox3 noted to move all extremities spontaneously Ext: no peripheral edema Plan Diagnosis/Plan: Unchanged I have reviewed the history and physical and performed a pertinent physical examination on my patient. No changes have occurred unless specified. Time Spent With Patient Time: Total time managing care of this patient today ____ minutes.
--- NOTE | 2024-06-01 09:05 | P.OPN-COLO_ITS ---
Colonoscopy Operative Note Operative Note Date of Service: 06/01/24 Narrative: Procedure: Colonoscopy Indication: Screening Endoscopist: Malorie Cain MD Anesthesia Provider: Teresa Diego DO Anesthesia type: MAC Instrument: Olympus [id number] Consent: Indication, risks vs benefits, and alternatives were discussed with the patient who gave written informed consent to proceed. EKG, pulse, pulse oximetry and blood pressure were monitored throughout the procedure. Please see anesthesia flowsheet. Procedure: The patient was brought to the procedure room and placed in the left lateral decubitus position. An abdominal binder was affixed before starting the procedure. IV medications were administered by the anesthesia provider in attendance. A digital rectal exam was performed which was normal. A distal attachment cap was affixed to the tip of the colonoscope which was then inserted through the anus and advanced through the colon to the cecum at 80 cm,and terminal ileum. Appendiceal orifice and ileocecal valve were identified. Mucosa was carefully examined under high definition white light as the instrument was slowly withdrawn in a retrograde panoramic fashion. Retroflexion was performed in ascending colon and rectum. The procedure was not difficult. There were no immediate obvious complications. The quality of the prep was BBPS: 2+2+2 = adequate Withdrawal time 17 minutes. Limitations: No limitations. Findings: Mucosa: Copious liquid stool was present especially in the R side of the colon which was extensively flushed and suctioned. Underlying mucosa normal in appearance to cecum and terminal ileum. Protruding lesions: * 1 sessile polyp of size 5 mm in descending colon. Cold snare polypectomy was performed. The polyp was completely removed and retrieved. * 1 sessile polyp of size4 mm in rectum. Cold snare polypectomy was performed. The polyp was completely removed and retrieved. * Medium internal hemorrhoids without stigmata of recent bleeding. Excavated lesions: * Moderate diverticulosis of left sided colon. Impression: 1. Normal colon mucosa 2. Total of 2 polyps removed 3. Diverticulosis 4. Internal hemorrhoids Recommendations: - Follow path results. - Repeat colonoscopy in 5 years due to quality of prep.
[2024-06-01 09:08] VITALS: BP 114/63; PULSE 76; RESP 16; TEMP 36.3; O2SAT 99
[2024-06-01 09:23] VITALS: BP 123/63; PULSE 76; RESP 16; TEMP 36.6; O2SAT 99
== END 2024-06-01 09:50 | disposition home or self-care (01) ==
PROVIDERS: Nurse Practitioner; PCP Nurse Practitioner Family; Visit Provider Internal Medicine
PROC: 0DJD8ZZ Inspection of Lower Intestinal Tract, Via Natural or Artificial Opening Endoscopic (ICD-10-PCS; CPT 45378; principal; 2024-06-01 08:20)
DX: Z12.11 Encounter for screening for malignant neoplasm of colon (principal); D12.4 Benign neoplasm of descending colon; K62.1 Rectal polyp; K57.30 Diverticulosis of large intestine without perforation or abscess without bleeding; K64.8 Other hemorrhoids; I10 Essential (primary) hypertension; E78.5 Hyperlipidemia, unspecified; J45.909 Unspecified asthma, uncomplicated; E03.9 Hypothyroidism, unspecified; E61.1 Iron deficiency; E55.9 Vitamin D deficiency, unspecified; Z98.84 Bariatric surgery status; Z68.43 Body mass index [BMI] 50.0-59.9, adult; Z90.49 Acquired absence of other specified parts of digestive tract; E66.9 Obesity, unspecified; Z79.899 Other long term (current) drug therapy
CPT/HCPCS: 45385; 81025; 88305; J2003; J2704

== ENCOUNTER → 2024-06-01 07:14 | Outpatient (BNV) | payer OTHER, SELFPAY | PROVIDERS: PCP Nurse Practitioner Family; Visit Provider Internal Medicine | DX: Z12.11 Encounter for screening for malignant neoplasm of colon (principal); D12.4 Benign neoplasm of descending colon; K62.1 Rectal polyp; K57.30 Diverticulosis of large intestine without perforation or abscess without bleeding | CPT/HCPCS: 45385 ==

== ENCOUNTER 2024-06-02 07:30 | Outpatient (AMB) | payer OTHER, SELFPAY ==
--- OUTSIDE RECORDS SUMMARY | 2024-06-02 07:36 | XMS_ITS | Encounter Summary ---
Author Organization [facility] Address [address] [place] [address] Care Team Providers Care Risk Management Manager Name Role Phone Davin Horn MD Primary Care Provider [phone] Jennifer Mojica PsyD Unavailable Alexandrea Story PROPOSAL ANALYST Unavailable Encounter Details Date Type Department Care Team (Late st Contact Info) Description 05/28/2023 Scanned Document [facility] [address] [phone] Alexandrea Story, PROPOSAL ANALYST [address] [facility] [address] [place] [address] Social History Tobacco Use Types Packs/Day Years Used Date Smoking Tobacco: Never Smokeless Tobacco: Never Alcohol Use Standard Drinks/Week Comments Not Currently 0 (1 standard drink = 0.6 oz pur e alcohol) [facility] [employer] [employer] - Occupational Stress Questionnaire Answer Date Recorded Do you feel stress - tense, restless, nervous, or anxious, or unable to sleep at night because your mind is troubled all the time - these days? Not at all 05/15/2023 Physical Activity Answer Date Recorded On average, how many days pe r week do you engage in moderate to strenuous exercise (like a brisk walk)? 5 05/15/2023 On average, how many minutes do you exercise per day at this level? 20 05/15/2023 Sex and Gender Information Value Date Recorded Sex Assigned at Female 07/15/2022 9:08 AM EST Gender Identity Female 07/15/2022 9:08 AM EST Sexual Orientation Heterosexual (straight) 07/15 9:08 AM EST documented as of this encounter Plan of Treatment Upcoming Encounters Date Type Department Care Team (Late st Contact Info) Description 06/08/2024 8:30 AM EST Office Visit [facility] [address] [phone] Michael Pina MD [address] [place] [id number] 10/07/2024 8:40 AM EDT Office Visit [facility] [address] [phone] Alexandrea Story APRN [address] [place] [phone] documented as of this encounter Visit Diagnoses Not on filedocumented in this encounter Care Teams Risk Management Manager Relationship Specialty Start Date End Date Davin Horn MD [address] [place] [address] PCP - General Family Medicine 10/24/20 Jennifer Mojica PsyD [address] [place] [address] Clinical Psychologist Psychology 12/14/20 Alexandrea Story APRN [address] [place] [address] Nurse Practitioner Internal Medicine 06/03/23 documented as of this encounter
--- OUTSIDE RECORDS SUMMARY | 2024-06-02 07:36 | XMS_ITS | Encounter Summary ---
Author Organization [facility] Address [address] [place] [address] Care Team Providers Care Production Proofreader Name Role Phone Davin Horn MD Primary Care Provider [phone] Jennifer Mojica PsyD Unavailable Alexandrea Story LABORER DEMOLITION Unavailable [phone] Encounter Details Date Type Department Care Team (Late st Contact Info) Description 04/29/2024 Telephone [facility] Bariatric Surgery [address] [place] [phone] Michael Pina MD [address] [place] [address] Social History Tobacco Use Types Packs/Day Years Used Date Smoking Tobacco: Never Smokeless Tobacco: Never Alcohol Use Standard Drinks/Week Comments Not Currently 0 (1 standard drink = 0.6 oz pur e alcohol) [facility] [place] of Occupat ional Health - Occupational Stress Questionnaire Answer Date Recorded Do you feel stress - tense, restless, nervous, or anxious, or unable to sleep at night because your mind is troubled all the time - these days? To some extent 12/09/2023 Physical Activity Answer Date Recorded On average, how many days pe r week do you engage in moderate to strenuous exercise (like a brisk walk)? 0 days 12/09/2023 On average, how many minutes do you exercise per day at this level? 0 min 12/09/2023 Sex and Gender Information Value Date Recorded Sex Assigned at Female 07/15/2022 9:08 AM EST Gender Identity Female 07/15/2022 9:08 AM EST Sexual Orientation Heterosexual (straight) 07/15 9:08 AM EST documented as of this encounter Plan of Treatment Upcoming Encounters Date Type Department Care Team (Late st Contact Info) Description 06/08/2024 8:30 AM EST Office Visit [facility] Bariatric Surgery [address] [phone] Michael Pina MD [address] [place] [address] 10/07/2024 8:40 AM EDT Office Visit [facility] Medical Weight Loss [address] [phone] Alexandrea Story APRN [address] [place] [phone] documented as of this encounter Visit Diagnoses Not on filedocumented in this encounter Care Teams Production Proofreader Relationship Specialty Start Date End Date Davin Horn MD [address] [place] [address] PCP - General Family Medicine 10/24/20 Jennifer Mojica PsyD [address] [place] [address] Clinical Psychologist Psychology 12/14/20 Alexandrea Story APRN [address] [place] [address] Nurse Practitioner Internal Medicine 06/03/23 documented as of this encounter
--- OUTSIDE RECORDS SUMMARY | 2024-06-02 07:36 | XMS_ITS | Encounter Summary ---
Author Organization [facility] Address [address] [place] [address] Care Team Providers Care Catalogue Clerk Name Role Phone Davin Horn MD Primary Care Provider [phone] Jennifer Mojica PsyD Unavailable [phone] Alexandrea Story LEATHER SPLITTER Unavailable [phone] Encounter Details Date Type Department Care Team (Latest Contact Info) Description 05/20/2024 Travel Social History Tobacco Use Types Packs/Day Years Used Date Smoking Tobacco: Never Smokeless Tobacco: Never Alcohol Use Standard Drinks/Week Comments Not Currently 0 (1 standard drink = 0.6 oz pur e alcohol) [facility] [place] of Occupat ional Health - Occupational Stress Questionnaire Answer Date Recorded Do you feel stress - tense, restless, nervous, or anxious, or unable to sleep at night because your mind is troubled all the time - these days? To some extent 05/20/2024 Physical Activity Answer Date Recorded On average, how many days pe r week do you engage in moderate to strenuous exercise (like a brisk walk)? 0 days 05/20/2024 On average, how many minutes do you exercise per day at this level? 0 min 05/20/2024 Sex and Gender Information Value Date Recorded Sex Assigned at Female 07/15/2022 9:08 AM EST Gender Identity Female 07/15/2022 9:08 AM EST Sexual Orientation Heterosexual (straight) 07/15 9:08 AM EST documented as of this encounter Plan of Treatment Upcoming Encounters Date Type Department Care Team (Late st Contact Info) Description 06/08/2024 8:30 AM EST Office Visit [facility] Bariatric Surgery [address] [place] [address] Michael Pina MD [address] [place] [address] 10/07/2024 8:40 AM EDT Office Visit [facility] Medical Weight Loss [address] [place] [phone] Alexandrea Story APRN [address] [address] documented as of this encounter Visit Diagnoses Not on filedocumented in this encounter Care Teams Catalogue Clerk Relationship Specialty Start Date End Date Davin Horn MD [address] [place] [address] PCP - General Family Medicine 10/24/20 Jennifer Mojica PsyD [address] [place] [address] Clinical Psychologist Psychology 12/14/20 Alexandrea Story APRN [address] [place] [address] Nurse Practitioner Internal Medicine 06/03/23 documented as of this encounter
--- OUTSIDE RECORDS SUMMARY | 2024-06-02 07:36 | XMS_ITS | Continuity of Care Document ---
Author Name [facility] Organization [facility] Care Team Providers Care Locomotive Lubricating Systems Clerk Name Role Phone [facility] Unavailable Unavailable Problems Combined list of problems from Department of Defense and Veterans Affairs facilities. It does not include entries that were removed or entered in error. Problem Status Onset Date Problem Type Date of Resolution Comments Source allergic rhinitis Active Condition DoD vomiting Inactive Condition [facility] Administrative Evaluation Services Inactive Condition DoD lower back sprain Inactive Condition DoD Patient Education Dietary Inactive Condition DoD Dietary Counseling Pertaining To Obesity Inactive Condition DoD Guidance: Concerns About Inadequate Physical Activity Inactive Condition DoD obesity Active Condition DoD acne Active Condition DoD fatigue Active Condition DoD foot pain (soft tissue) Inactive Condition [facility] acute bronchitis Inactive Condition [facility] upper respiratory infection Inactive Condition [facility] hypothyroidism Active Condition DoD asthma Active Condition [facility] sore throat acute Inactive Condition [facility] visit for: screening exam immunological disorders Inactive Condition DoD Medications Combined list of outpatient medications from Department of Defense and Veterans Affairs facilities.Medications provided include 1) outpatient medications from the last 15 months, and 2) patient-reported medications. Medication Details Route Status Patient Instructions Prescription Expires Prescription Number Last Dispense Date Ordering Provider Order Date Order Qty Source ACETAZOLAMI DE (acetazolam liz), 250 MG, TABLET, ORAL, AVET PHARMACEUT, 100 ea. BOTTLE Active [id number] 4 2023 90 Pharmac y Data Transac tion Service Facilit y ALBUTEROL SULFATE HFA (albuterol sulfate), 90 MCG, HFA AER AD, INHALATION, TEVA [place], 8.5 g CANISTER Active [id number] 4 2023 8.5 Pharmac y Data Transac tion Service Facilit y AMITRIPTYLI NE HCL (amitriptyl ine HCl), 25 MG, TABLET, ORAL, [employer] 1000 ea. BOTTLE Active [id number] 4 2023 90 Pharmac y Data Transac tion Service Facilit y AMITRIPTYLI NE HCL (amitriptyl ine HCl), 25 MG, TABLET, ORAL, [employer] 1000 ea. BOTTLE Active [id number] 4 2023 90 Pharmac y Data Transac tion Service Facilit y CETIRIZINE HCL (cetirizine HCl), 10 MG, TABLET, ORAL, MAJOR PHARMACEU, 300 ea. BOTTLE Active [id number] 4 2023 90 Pharmac y Data Transac tion Service Facilit y CETIRIZINE HCL (cetirizine HCl), 10 MG, TABLET, ORAL, MAJOR PHARMACEU, 300 ea. BOTTLE Active [id number] 4 2023 90 Pharmac y Data Transac tion Service Facilit y EMGALITY PEN (galcanezum ab-gnlm), 120 MG/ML, PEN INJCTR, SUBCUT, F[employer]Y [employer] 1 ml SYRINGE Active [id number] 2023 3 Pharmac y Data Transac tion Service Facilit y EMGALITY PEN (galcanezum ab-gnlm), 120 MG/ML, PEN INJCTR, SUBCUT, F[employer] 1 ml SYRINGE Active [id number] 2023 3 Pharmac y Data Transac tion Service Facilit y EMGALITY PEN (galcanezum ab-gnlm), 120 MG/ML, PEN INJCTR, SUBCUT, [employer] 1 ml SYRINGE Active [id number] 4 2023 3 Pharmac y Data Transac tion Service Facilit y HYDROXYCHLO ROQUINE SULFATE (hydroxychl oroquine sulfate), 200 MG, TABLET, ORAL, 'S LAB, 100 ea. BOTTLE Active [id number] 2023 60 Pharmac y Data Transac tion Service Facilit y LEVOTHYROXI NE SODIUM (levothyrox ine sodium), 25 MCG, TABLET, ORAL, AMNEAL PHARMACE, 1000 ea. BOTTLE Cancele d [id number] : 2023 0 Pharmac y Data Transac tion Service Facilit y MONTELUKAST SODIUM (montelukas t sodium), 10 MG, TABLET, ORAL, XLCARE PHARMACE, 90 ea. BOTTLE Active [id number] 4 2023 90 Pharmac y Data Transac tion Service Facilit y MONTELUKAST SODIUM (montelukas t sodium), 10 MG, TABLET, ORAL, XLCARE PHARMACE, 90 ea. BOTTLE Active [id number] 2023 90 Pharmac y Data Transac tion Service Facilit y PREDNISONE (prednisone ), 10 MG, TABLET, ORAL, MYLAN, 1000 ea. BOTTLE Active [id number] 2023 21 Pharmac y Data Transac tion Service Facilit y PROPRANOLOL HCL ER (propranolo l HCl), 80 MG, CAP SA 24H, ORAL, AVKARE, 100 ea. BOTTLE Active [id number] 2023 90 Pharmac y Data Transac tion Service Facilit y PROPRANOLOL HCL ER (propranolo l HCl), 80 MG, CAP SA 24H, ORAL, AVKARE, 100 ea. BOTTLE Active [id number] 2023 90 Pharmac y Data Transac tion Service Facilit y RIZATRIPTAN (RIZATRIPTA N BENZOATE), 10 MG, TAB RAPDIS, ORAL, AUROBINDO PHARM, 9 ea. BLIST PACK Cancele d [id number] : 2023 0 Pharmac y Data Transac tion Service Facilit y RIZATRIPTAN (RIZATRIPTA N BENZOATE), 10 MG, TAB RAPDIS, ORAL, AUROBINDO PHARM, 9 ea. BLIST PACK Active [id number] 2023 9 Pharmac y Data Transac tion Service Facilit y SPIRONOLACT ONE (spironolac tone), 100 MG, TABLET, ORAL, ENRIQUE RANCH [place], 500 ea. BOTTLE Active [id number] 2023 90 Pharmac y Data Transac tion Service Facilit y SPIRONOLACT ONE (spironolac tone), 100 MG, TABLET, ORAL, ENRIQUE RANCH [place], 500 ea. BOTTLE Active [id number] 2023 90 Pharmac y Data Transac tion Service Facilit y SYNTHROID (LEVOTHYROX INE SODIUM), 200MCG, TABLET, ORAL, [facility]ORRES [facility]S., 1000 ea. BOTTLE Cancele d [id number] : 2023 0 Pharmac y Data Transac tion Service Facilit y SYNTHROID (LEVOTHYROX INE SODIUM), 200MCG, TABLET, ORAL, [facility] 1000 ea. BOTTLE Active [id number] 2023 90 Pharmac y Data Transac tion Service Facilit y SYNTHROID (LEVOTHYROX INE SODIUM), 25MCG, TABLET, ORAL, [facility] 1000 ea. BOTTLE Active [id number] 2023 90 Pharmac y Data Transac tion Service Facilit y SYNTHROID (LEVOTHYROX INE SODIUM), 25MCG, TABLET, ORAL, [facility] 1000 ea. BOTTLE Active [id number] 2023 90 Pharmac y Data Transac tion Service Facilit y TIZANIDINE HCL (TIZANIDINE HCL), 4 MG, TABLET, ORAL, UNICHEM PHARMAC, 300 ea. BOTTLE Active [id number] 2023 30 Pharmac y Data Transac tion Service Facilit y Allergies, Adverse Reactions, Alerts Combined list of allergies from Department of Defense and Veterans Affairs facilities. It does not include entries that were removed or entered in error. Substance Category Reaction Severity Reaction type Status Date Reported Comments Source CODEINE Drug allergy (disorder) Other: pt reports tolerates Tramadol, Unknown active 9 [facility] DOXYCYCLINE CALCIUM Drug allergy (disorder) Unknown active 8 [facility] LEVOTHYROXINE Drug allergy (disorder) Itching purpura, Other: hives active 8 [facility] Immunizations Combined list of available immunizations from the Department of Defense and Veterans Affairs facilities. Immunization Series Date Given Administered By Site Reaction Lot Number CVX Code Drug Head Of Merchandise Buying Status Comments Source COVID-19, mRNA, LNP-S, PF, 30 mcg/0.3 mL dose, flores-sucrose 2021 AFOLALU, () Not Given COVID-19, mRNA, LNP-S, PF, 30 mcg/0.3 mL dose, flores-sucr ose DoD Encounters Combined list of: 1) Encounters from Department of Veterans Affairs facilities going back up to thelast 18 months. 2) Encounters from the Department of Defense facilities going back up to 280 months. Location Location Details Encounter Type Encounter Number Reason For Visit Attending Provider ADM Date DC Date Status Disposition Source [facility] OUTPATIENT [id number] SORE THROAT/ FEVER/K OLSLUNA POLANCO 05/19 Released w/o Limitations [facility] [place] OUTPATIENT [id number] F/U LABS/KO LSIN REQ LUNA MARLOW 06/13 Released w/o Limitations [facility] [place] [place] OUTPATIENT [id number] FEVER/S ORE THROAT/ HEADACH E X 2 DAYS/KO LSIN DANISH REYES 06/21 Released w/o Limitations [facility] [place] OUT[facility] [id number] URI SX/KOLS IN HWANGSUDHAKAR TOUSSAINT ALEJANDRO 07/28 Released w/o Limitations [facility] [place] [place] OUTPATIENT [id number] RIGHT FOOT PAIN/KO LSIN LIONEL APODACA 09/22 Released w/o Limitations [facility] [place] [place] OUTPATIENT [id number] DERM AND ENDOCRI NE REFERRA L/KOLSI N SHASHI SCOT B 10/21 Released w/o Limitations [facility] [place] [place] OUTPATIENT [id number] f/u labs SHASHI, SCOT B 10/28 Released w/o Limitations [facility] [place] [place] OUT[facility]IENT [id number] WEIGHT MGT CLASS VIVEK CABRERA 11/25 Released w/o Limitations [facility] [place] OUTPATIENT [id number] F/U WEIGHT VIVEK CABRERA 01/24 Released w/o Limitations [facility] [place] OUTPATIENT [id number] LOWER BACK PAIN SINCE FRIDAY/ LIONEL CARRILLO 04/03 Released w/o Limitations [facility] [place] TELE CONSULT [id number] REF UPDATE/ BJA/CC [place] 05/03 [facility] TELE CONSULT [id number] CONCERN ED VOMITIN G MEB/CC [place] 05/31 [facility] [place] OUTPATIENT [id number] F/U MEDS/CH ZOE THYROID /BRENT MANCUSO 06/09 Released w/o Limitations [facility] [place] OUTPATIENT [id number] f/u labs BRENT MORSE 06/16 Released w/o Limitations [facility] TELE CONSULT [id number] LAB RESULTS /JMEH/C BRENT SUN 08/04 [facility] TELE CONSULT [id number] needs labs BRENT MORSE 09/14 [facility] [place] TELE CONSULT [id number] LAB RESULTS /BJA/CC JOCELYN KING 09/18 [facility] [place] OUTPATIENT [id number] EAR/THR OAT/ANNA N/LEZCA GONZÁLEZ KAPOOR 01/30 Released w/o Limitations [facility]) Procedures Combined list of: 1) Procedures from Department of Veterans Affairs facilities going back up to thelast 18 months, not all VA non-surgical procedures are included; 2) All procedures from the Department of Defense facilities. Procedure Procedure Type Code Date Perfomer Comments Helen vieira WEIGHT MANAGEMENT CLASSES, NON-PHYSICIAN PROVIDER, PER SESSION 01/24/2009 [facility] WEIGHT MANAGEMENT CLASSES, NON-PHYSICIAN PROVIDER, PER SESSION 11/25/2008 [facility] NONINVASIVE EAR OR PULSE OXIMETRY FOR OXYGEN SATURATION; SINGLE DETERMINATION 05/19/2008 [facility] Weight management cla es, non-physician provider, per se ion 01/24/2009 VIVEK CABRERA Weight management cla es, non-physician provider, per se ion 11/28/2008 VIVEK CABRERA Pulse Oximetry Pulse Oximetry [id number] 05/19/2008 LUNA VILLANUEVA Spirometry Peak Expiratory Flow Spirometry Peak Expiratory Flow [id number] 05/19/2008 LUNA VILLANUEVA Social History Combined list of available smoking, tobacco, and other social history from Department of Defense and Veterans Affairs facilities. Social History Type Response Date Comment Helen vieira This section is an empty social history section. [facility]
--- OUTSIDE RECORDS SUMMARY | 2024-06-02 07:36 | XMS_ITS | Clinical Summary ---
Author Organization [facility] Address [address] [place] [address] Care Team Providers Care Animal Shelter Supervisor Name Role Phone Davin Horn NP Primary Care Provider [phone] Social History Tobacco Use Types Packs/Day Years Used Date Smoking Tobacco: Never Assessed Comments Unknown Sex and Gender Information Value Date Recorded Sex Assigned at Not on file Legal Sex Female 4:31 PM EST Gender Identity Not on file Sexual Orientation Not on file Plan of Treatment Health Maintenance Due Date Last Done Comments Pneumococcal Vaccine: Pediat rics (0 to 5 Years) and At-Risk Patients (6 to 64 Years) (1 of 2 - PCV) 1984 Hepatitis B Vaccine (1 of 3 - 19+ 3-dose series) 1997 Influenza Vaccine (#1) 2024 03/02/2020, 2017 Care Teams Animal Shelter Supervisor Relationship Specialty Start Date End Date Davin Horn NP [address] [place] [address] PCP - General 03/16/19
--- OUTSIDE RECORDS SUMMARY | 2024-06-02 07:36 | XMS_ITS | Encounter Summary ---
Author Organization [facility] Address [address] [place] [address] Care Team Providers Care Track Grinder Name Role Phone Davin Horn MD Primary Care Provider [phone] Jennifer Mojica PsyD Unavailable [phone] Alexandrea Story LAW LIBRARIAN Unavailable Encounter Details Date Type Department Care Team (Late st Contact Info) Description 11/26/2023 Scanned Document [facility] Medical Weight Loss [address] [phone] Alexandrea Story, LAW LIBRARIAN 10 [facility] [address] [place] [address] Social History Tobacco Use Types Packs/Day Years Used Date Smoking Tobacco: Never Smokeless Tobacco: Never Alcohol Use Standard Drinks/Week Comments Not Currently 0 (1 standard drink = 0.6 oz pur e alcohol) [facility] [place] of Occupat ional Health - Occupational Stress [...] Description 06/08/2024 8:30 AM EST Office Visit [facility] Bariatric Surgery [address] [phone] Michael Pina MD [address] [place] [address] 10/07/2024 8:40 AM EDT Office Visit [facility] Medical Weight Loss [address] [phone] Alexandrea Story APRN [address] [place] [phone] documented as of this encounter Visit Diagnoses Not on filedocumented in this encounter Care Teams Track Grinder Relationship Specialty Start Date End Date Davin Horn MD [address] [place] [address] PCP - General Family Medicine 10/24/20 Jennifer Mojica PsyD [address] [place] [address] Clinical Psychologist Psychology 12/14/20 Alexandrea Story APRN [address] [place] [address] Nurse Practitioner Internal Medicine 06/03/23 documented as of this encounter
--- OUTSIDE RECORDS SUMMARY | 2024-06-02 07:36 | XMS_ITS | Clinical Summary ---
Author Organization [facility] Address [address] [place] [address] Care Team Providers Care Deputy Court Clerk Name Role Phone Davin Horn MD Primary Care Provider [phone] Jennifer Mojica PsyD Unavailable [phone] Alexandrea Story RAW SAMPLER Unavailable Allergies Active Allergy Reactions Criticality Noted Date Comments Codeine GI Intolerance/Nausea/Vo miting Low 10/18/2016 vicodin Levothyroxine Hives,Rash/Dermatitis Medium 10/18/2016 generic Lisinopril Cough Low 10/07/2018 Metformin Myalgia/Myositis/Art h ralgia/Arthritis High 08/18/2023 Metoprolol Other (See Comments) 12/01/2019 headache Minocycline Other (See Comments) 11/04/2013 headache Other Hives,Swelling Medium 02/27/2021 Horses, cats and dogs Pork-Derived Products Hives Medium 02/27/2021 Confirmed through allergy testing Medications Medication Sig Dispensed Refills Start Date End Date Status Synthroid 200 MCG tablet Take 1 tablet (200 mcg total) by mouth daily. 08/31/2020 Active Synthroid 25 MCG tablet Take 1 tablet (25 mcg total) by mouth daily. 08/31/2020 Active montelukast (SINGULAIR) 10 MG tablet Take 1 tablet (10 mg total) by mouth. 08/31/2020 Active amitriptyline (ELAVIL) 25 MG tablet Take 1 tablet (25 mg total) by mouth nightly. 08/13/2020 Active cetirizine (ZyrTEC) 10 MG tablet Take 1 tablet (10 mg total) by mouth nightly. 08/13/2020 Active ascorbic acid (VITAMIN C) 500 MG tablet Take 1 tablet (500 mg total) by mouth. Active albuterol (PROVENTIL HFA; VENTOLIN HFA) 108 (90 Base) MCG/ACT inhaler INHALE 2 PUFFS BY MOUTH EVERY 6 HOURS NEEDED FOR SHORTNESS OF BREATH OR WHEEZING 08/16/2020 Active Ajovy 225 MG/1.5ML Solution Auto-injector 09/11/2020 Active rizatriptan (MAXALT-TRANSACTIONAL ATTORNEY) 10 MG disintegrating tablet Take 1 tablet (10 mg total) by mouth once as needed. 09/11/2020 Active levonorgestrel (MIRENA) 20 mcg/24hr IUD 1 Intra Uterine Device by Intrauterine route once. Active MAGNESIUM GLYCINATE PO Take 800 mg by mouth. Active Multiple Vitamins-Minerals (Bariatric Fusion) Chew Tab Chew. Active spironolactone (ALDACTONE) 100 MG tablet Take 1 tablet (100 mg total) by mouth daily. 11/21/2021 Active clotrimazole (LOTRIMIN) 1 % creamIndications:Hank h Apply topically 2 (two) times a day. 30 g 3 07/19/2022 Active propranolol (INDERAL LA) 80 MG 24 hr capsule 10/28/2022 Active hydroxychloroquine (PLAQUENIL) 200 MG tablet Take 0.5 tablets (100 mg total) by mouth every morning with breakfast. With food or milk. Active acetaZOLAMIDE (DIAMOX) 250 MG tablet 12/05/2023 Active tirzepatide (ZEPBOUND) 2.5 mg/0.5 mL pen-injectorIndicati ons:Obesity, Class III, BMI 40-49.9 (morbid obesity) (HCC),MAURICIO (obstructive sleep apnea) Inject 1 Pen (2.5 mg total) under the skin once a week. 6 mL 05/24/2024 Active Semaglutide-Weight Management (Wegovy) 0.25 MG/0.5ML Solution Auto-injectorIndicat ions:Obesity, Class III, BMI 40-49.9 (morbid obesity) (HCC) Inject 0.25 mg under the skin once a week. 2 mL 1 12/09/2023 Discontinue d(Never Started) tirzepatide (ZEPBOUND) 2.5 mg/0.5 mL pen-injectorIndicati ons:Obesity, Class III, BMI 40-49.9 (morbid obesity) (HCC),MAURICIO (obstructive sleep apnea) Inject 1 Pen (2.5 mg total) under the skin once a week. 2 mL 1 05/20/2024 5 Discontinue d(Reorder) Active Problems Problem Noted Date Diagnosed Date Iron deficiency anemia 10/02/2022 3 Morbid obesity with BMI of 45.0-49.9, adult 04/11 Migraine without status migrainosus, not intract able 06/21/2020 10/02/2022 Overview (10/02/2022): Last Assessment & Plan: She is in the process of getting 2nd opinion neurological consultation in [place], [place] in December 2020 to address it from fresh perspective. I requested her to share the consultation note with me for completeness. I suggested her to consider re-listening to relaxation tapes and CALM abdifatah prior to entering radiology suite. Keep diary of headaches and modifying factors. Keep well-hydrated. Avoid known triggers. Optimize stress management strategies. Hyperglycemia 04/21/2020 10/02/2022 Overview (10/02/2022): Last Assessment & Plan: Continue no concentrated sugar diet with low calorie, low saturated fats and low cholesterol. Chronic pain of left knee 03/02/20202022 Overview (10/02/2022): Last Assessment & Plan: Joint protection, energy conservation. Gentle, regular exercise routine. Avoid falls, injuries, overuse. Keep body weight in ideal range for her height. She may benefit from topical cream such as Arnica, Biofreeze, Aspercreme versus medicated patches such as salonpas, icy hot patch 2-3 times daily and if necessary at bedtime x 3 weeks. Hypertension 04/05/2019 10/02/2022 Overview (10/02/2022): Last Assessment & Plan: Since metoprolol triggers migraines 3-4 times a week I suggested her to talk to her prescriber about switching it carefully to propranolol that may be equally successful in controlling depression and reducing risk of migraine headaches. Acquired hypothyroidism 06/04/2017 10/03/19 Overview (10/02/2022): Last Assessment & Plan: Continue thyroid hormone replacement therapy as prescribed. Periodic checkup with prescribing physician. Chronic fatigue 06/04/2017 10/02/2022 Fibromyalgia 06/04/2017 10/02/2022 Overview (10/02/2022): Last Assessment & Plan: Due to her complaints of dryness in her mouth and difficulty reducing her weight she is interested in getting off of amitriptyline to see whether it will improve so I asked her to gently taper amitriptyline 25 mg nightly to alternating every other night with 12.5 mg x 1 week then further taper down to 12.5 mg nightly x 1 week and subsequently alternate 12.5 mg every other night with no amitriptyline and try to stop it. Call if problems or questions. Balance rest and activity Sleep hygiene. Joint protection, energy conservation. Gentle, regular exercise routine as tolerated. Use warm packs versus warm shower pse session. Topical cream such as Arnica, Aspercreme or Biofreeze versus patch 2-3 times daily or at least at bedtime for a period of 2-3 weeks as needed. Consider local steroid injection if worse. Regular meditation, relaxation sessions Continue mindfulness in daily strategies. Try swimming pool walking-consider ROOTS program in [place] once COVID-19 restrictions lifted. If unable to participate walk to the music at home. Consider personalized psychotherapy with CBT, DNRS, positive imagery etc. Gastroesophageal reflux disease 06/04/2017 10/02/2022 Overview (10/02/2022): Last Assessment & Plan: Avoid late, large, spicy meals. Keep headboard elevated at 45?? angle for nighttime. Encounters Date Type Department Care Team Description 05/24/2024 Orders Only [facility] Medical Weight Loss [place] [address] [place] [phone] Alexandrea Story, RAW SAMPLER Obesity, Class III, BMI 40-49.9 (morbid obesity) (HCC); MAURICIO (obstructive sleep apnea) 05/20/2024 7:00 AM EST Office Visit [facility] Weight [facility] [place] [address] [place] [address] Alexandrea Story, RAW SAMPLER Obesity, Class III, BMI 40-49.9 (morbid obesity) (HCC) (Primary Dx); MAURICIO (obstructive sleep apnea) 05/20/2024 Travel 04/29/2024 Telephone [facility] Bariatric Surgery [address] [place] [phone] Michael Pina MD from Last 3 Months Family History Medical History Relation Name Comments Blood Clots Maternal Grandmother Mariela Breast cancer Maternal Grandmother Mariela Diabetes Maternal Grandmother Mariela Heart disease Maternal Grandmother Mariela Hyperlipidemia Maternal Grandmother Mariela Hypertension Maternal Grandmother Mariela Kidney disease Maternal Grandmother Mariela Obesity Maternal Grandmother Mariela Thyroid disease Sister Sonia Relation Name Status Comments Maternal Grandmother Mariela Sister Sonia Social History Tobacco Use Types Packs/Day Years Used Date Smoking Tobacco: Never Smokeless Tobacco: Never Alcohol Use Standard Drinks/Week Comments Not Currently 0 (1 standard drink = 0.6 oz pur e alcohol) [facility] [place] [facility] - Occupational Stress [...] Orientation Heterosexual (straight) 07/15 9:08 AM EST Last Filed Vital Signs Vital Sign Reading Time Taken Comments Blood Pressure 102/72 05/20/2024 7:04 AM EST Pulse 72 05/20/2024 7:04 AM EST Temperature 36.4 ??C (97.6 ??F) 05/09/2021 9:02 AM ES T Respiratory Rate 16 04/28/2023 3:27 PM EST Oxygen Saturation 97% 04/28/2023 3:27 PM EST Inhaled Oxygen Concentration - - Weight 130 kg (286 lb 1.6 oz) 05/20/2024 7:04 AM EST Height 165.1 cm (5' 5 ) 05/20/2024 7:04 AM EST Body Mass Index 47.61 05/20/2024 7:04 AM EST Plan of Treatment Upcoming Encounters Date Type Department Care Team (Late st Contact Info) Description 06/08/2024 8:30 AM EST Office Visit [facility] Bariatric Surgery [address] [phone] Michael Pina MD [address] [place] [address] 10/07/2024 8:40 AM EDT Office Visit [facility] Medical Weight Loss [address] [address] Alexandrea Story, ISAURO [address] [address] Health Maintenance Due Date Last Done Comments Hepatitis C Virus Screening 1978 HIV Screening 08/29/1991 DTaP/Tdap/Td Vaccines (1 - Tdap) 1997 Hepatitis B Vaccines (1 of 3 - 19+ 3-dose series) 1997 Pneumococcal Vaccine: Pediatric (0-5 Years) and At-Risk Patients (6 to 49 Years) (1 of 2 - PCV) 1997 Mammogram 2018 Colonoscopy 08/29/2023 Influenza Vaccine 12/11/2023 03/02/2020 COVID-19 Vaccine ( season) 2024 02/04/2023, 02/01/2022, 08/24/2021, Additional history exists Pap Smear (Ages 21-65) 05/23/2025 05/23/2022 HPV Vaccines Aged Out No longer eligi ble based on patient's age to complete this topic Procedures Procedure Name Priority Date/Time Associated Diagnosis Comments THINPREP PAP(FILTER WASHER) HPV SCR RFX HPV 16,18/45 Routine 05/23/2022 4:21 AM EST from Last 3 Months or Most Recently Relevant to Health Maintenance Results * ThinPrep Pap(Facilitator) HPV Scr Rfx HPV 16,18/45 (05/23/2022 4:21 AM EST) Clinical Information [facility] Comment:None given LMP: [facility] Comment:NONE GIVEN Previous PAP: [facility] Comment:NONE GIVEN Previous Biopsy [facility] Comment:NONE GIVEN Source: [facility] Comment:Cervix, Endocervix Statement of Adequacy: [facility] Comment: Satisfactory for evaluation. Endocervical/transformation zone component present. Age and/or menstrual status not provided Interpretation/Res ult: [facility] Comment:Negative for intraep ithelial lesion or malignancy. Comment: [facility] Comment: This Pap test has been evaluated with computer assisted technology. Diagnostic Radiologist: [facility] Comment: SXA, CT(ASCP) CT screening location: [address] ??[address] Review Diagnostic Radiologist: [facility] Comment: VIDYA, CT(ASCP) CT screening location: [address] ??[address] Comment [facility] Comment: EXPLANATORY NOTE: The Pap is a screening test for cervical cancer. It is not a diagnostic test and is subject to false negative and false positive results. It is most reliable when a satisfactory sample, regularly obtained, is submitted with relevant clinical findings and history, and when the Pap result is evaluated along with historic and current clinical information. Hpv Mrna [id number] Not Detected Not Detected [facility] Comment: Methodology: City Marshal-Mediated Amplification This assay detects E6/E7 viral messenger RNA (mRNA) from 14 high-risk HPV types (16,18,31,33,35,39,45,51,52,56,58,59,66,68). Cervical sources are required for HPV testing. If a vaginal source from a patient who has had a total hysterectomy with removal of cervix was submitted, please contact the testing laboratory for alternative testing options. For additional information, please refer to http://education.139shop/faq/RMP375e1 (This link if provided for information/ educational purposes only.) 05/23/2022 4:21 AM EST 05/24/2022 7:30 PM EST Narrative [facility] - 05/31/2022 2:49 PM EST [id number] NG Asia Quinteros CNM PATHOLOGY/CYTOLOG Y ORDERABLES Performing Organization Address City/State/[facility] Co de Phone Number [facility] [address], [place] [address] from Last 3 Months or Most Recently Relevant to Health Maintenance Advance Directives * Full Code (Latest Code Status on File) Date Activated Date Inactivated Comments 04/25/2021 8:23 AM Care Teams Deputy [address] Clerk Relationship Specialty Start Date End Date Davin Horn MD [address] [place] [address] PCP - General Family Medicine 10/24/20 Jennifer Mojica, Moisés [address] [place] [address] Clinical Psychologist Psychology 12/14/20 Alexandrea Story APRN [address] [place] [address] Nurse Practitioner Internal Medicine 06/03/23
--- OUTSIDE RECORDS SUMMARY | 2024-06-02 07:36 | XMS_ITS | Encounter Summary ---
Author Organization [facility] Address [address] [place] [address] Care Team Providers Care Pump Service Supervisor Name Role Phone Davin Horn MD Primary Care Provider [phone] Jennifer Mojica PsyD Unavailable [phone] Alexandrea Story CONDUIT INSTALLER Unavailable [phone] Encounter Details Date Type Department Care Team ([facility] Contact Info) Description 04/24/2021 Prep for Surgery [facility] Bariatric Surgery [address] [place] [address] Michael Pina MD [address] [place] [address] Social History Tobacco Use Types Packs/Day Years Used Date Smoking Tobacco: Never Smokeless Tobacco: Never Alcohol Use Standard Drinks/Week Comments Not Currently 0 (1 standard drink = 0.6 oz pur e alcohol) Sex and Gender Information Value Date Recorded Sex Assigned at Female 07/15/2022 9:08 AM EST Gender Identity Female 07/15/2022 9:08 AM EST Sexual Orientation Heterosexual (straight) 07/15 9:08 AM EST COVID-19 Exposure Response Date Recorded In the last month, have you been in contact with someone who was confirmed or suspected to have Coronavirus / COVID-19? No / Unsure 04/25/2021 7:55 AM EST documented as of this encounter Plan of Treatment Upcoming Encounters Date Type Department Care Team (Late Contact Info) Description 06/08/2024 8:30 AM EST Office Visit [facility] Bariatric Surgery [place] [address] [place] [phone] Michael Pina MD [address] [place] [address] 10/07/2024 8:40 AM EDT Office Visit [facility] Medical Weight Loss [address] [place] [address] Alexandrea Story APRN [address] [address] documented as of this encounter Visit Diagnoses Not on filedocumented in this encounter Care Teams Pump Service Supervisor Relationship Specialty Start Date End Date Davin Horn MD [address] [place] [address] PCP - General Family Medicine 10/24/20 Jennifer Mojica PsyD [address] [place] [address] Clinical Psychologist Psychology 12/14/20 Alexandrea Story APRN [address] [place] [address] Nurse Practitioner Internal Medicine 06/03/23 documented as of this encounter
--- OUTSIDE RECORDS SUMMARY | 2024-06-02 07:36 | XMS_ITS | Clinical Summary ---
Author Organization [address] Address [address] [place] [address] Care Team Providers Care Roof Fixer Name Role Phone Davin Horn NP Primary Care Provider + Allergies Active Allergy Reactions Criticality Noted Date Comments Fluticasone Propion-Salmeterol Hives High 10/18 Codeine Vomiting 10/18/2016 Levothyroxine Rash Low 10/18/2016 generic Metoprolol Succinate Headache 12/01/2019 Minocycline Headache 10/18/2016 Pork/Porcine Containing Products Hives High 01/2017 In large amounts Medications cetirizine (ZYRTEC) 10 MG tablet Take 10 mg by mouth nightly. 07/05/2016 Active SYNTHROID 200 mcg tablet daily.. 06/03/2016 Active SYNTHROID 25 mcg tablet 50 mcg daily. 05/13/2016 Active montelukast (SINGULAIR) 10 mg tablet Take 10 mg by mouth nightly. 07/22/2016 Active cholecalciferol (VITAMIN D) 1,000 unit tablet Take 5,000 Units by mouth daily.. Active ascorbic acid, vitamin C, (VITAMIN C) 500 MG tablet Take 500 mg by mouth daily.. Active magnesium oxide (MAG-OX) 400 mg tablet Take 400 mg by mouth daily.. Active ibuprofen (ADVIL,MOTRIN) 800 MG tablet Take 1 tablet (800 mg total) by mouth every 8 (eight) hours as needed.. 20 tablet 10/23/2016 Active acetaminophen (TYLENOL) 500 mg tablet Take 1,000 mg by mouth every 6 (six) hours as needed. Active traMADol (ULTRAM) 50 mg tablet Take 50 mg by mouth every 6 (six) hours as needed. Active ALPHA LIPOIC ACID ORAL Take by mouth. Active glucosamine sulfate (GLUCOSAMINE ORAL) Take by mouth. Active pantoprazole (PROTONIX) 40 mg tablet Take 40 mg by mouth nightly. Active spironolactone (ALDACTONE) 100 mg tablet Take 100 mg by mouth daily. Active C/sourcherry/ce lery/grape seed (TART RODRIGUEZ ORAL) Take by mouth. Active TURMERIC ORAL Take by mouth. Active propranoloL (INDERAL LA) 60 mg LA 24 hr extended release capsule Take 1 capsule by mouth nightly. 10/21/2019 Active amitriptyline (ELAVIL) 10 mg tablet Take 1 tablet by mouth nightly. 12/01/2019 Active rizatriptan (MAXALT) 10 mg tablet Take 10 mg by mouth as needed for migraine. May repeat in 2 hours if needed Active fremanezumab-vf rm (AJOVY AUTOINJECTOR) 225 mg/1.5 mL AtIn Inject 225 mg under the skin every 28 days. Active Active Problems No known active problems Immunizations Name Administration Dates Next Due COVID-19 Vaccine - PFIZER 09/23/2020,08/25/2020 COVID-19, PFIZER 12Y up,mRNA,WANDY 08/24/2021 COVID-19, PFIZER Bivalent, 12 Yrs+, 0.3mL 2022 Family History Medical History Relation Name Comments Breast cancer Maternal Grandmother Relation Name Status Comments Maternal Grandmother Social History Tobacco Use Types Packs/Day Years Used Date Smoking Tobacco: Never Smokeless Tobacco: Never Alcohol Use Standard Drinks/Week Comments Not Currently 0 (1 standard drink = 0.6 oz pur e alcohol) holiday Comments No Sex and Gender Information Value Date Recorded Sex Assigned at Not on file Legal Sex Female 5:37 PM EST Gender Identity Not on file Sexual Orientation Not on file Last Filed Vital Signs Vital Sign Reading Time Taken Comments Blood Pressure 118/79 03/20/2020 8:44 AM EST Pulse 86 12/21/2019 8:00 PM EDT Temperature 37 ??C (98.6 ??F) 06/19/2020 8:19 AM EST Respiratory Rate 20 06/19/2020 8:19 AM EST Oxygen Saturation 99% 06/19/2020 8:19 AM EST Inhaled Oxygen Concentration - - Weight 142.9 kg (315 lb 0.6 oz) 01/26/2021 4:06 PM EDT Height 165.1 cm (5' 5 ) 01/26/2021 4:06 PM EDT Body Mass Index 52.42 01/26/2021 4:06 PM EDT Plan of Treatment Health Maintenance Due Date Last Done Comments HIV screening 08/29/1991 Hepatitis C screening 1996 Tetanus adult (Td q 10,TDAP once) 1998 Lipid disorder screening 2018 Colon cancer screening, Colonoscopy 08/29/2023 Diabetes screening 08/29/2023 Influenza vaccine 12/11/2023 03/02/2020 Covid-19 vaccine series ( season) 2024 02/04/2023, 02/01/2022, 02/01/2022, Additional history exists Breast cancer screening 06/22/2024 06/22/19, 12/09/2020, 06/26/2019, Additional history exists Cervical cancer screening 05/23/2027 05/23/2022 RSV Discussion (1 - 1-dose 75+ series) 2053 Meningococcal Vaccine Aged Out No lizett shalini eligible based on patient's age to complete this topic Pneumococcal Vaccine Aged Out No long er eligible based on patient's age to complete this topic Medical Devices Implanted Type Area Car Salter Device Identifier Shelf Expiration Date Model / Serial / Lot Mirena Iud Implanted:Qty: 1 on 10/23/2016 by Teresa Walker MD at [facility] G[facility]IA 05/25/2019 / / [id number] Description:BROUGHT IN BY Explanted Type Area Car Salter Device Identifier Shelf Expiration Date Model / Serial / Lot Paulette 7x19.5 Biocomposite - [id number] [address]planted:12/[address] (Quantity not on file) Implant Right: Shoulder ARTHREX [id number] 09/09/2023 [id number] C-7 / / [id number] Procedures Procedure Name Priority Date/Time Associated Diagnosis Comments MAMMO SCREENING PEREZ BILATERAL Routine 06/22/2022 8:44 AM EST Encounter for screening mammogram for malignant neoplasm of breast from Last 3 Months or Most Recently Relevant to Health Maintenance Results * Mammography Screening Perez Bilateral (06/22/2022 8:44 AM EST) Anatomical Region Laterality Modality Breast Bilateral Mammography 06/24/2022 1:28 PM EST Impressions 06/24/2022 1:30 PM EST No mammographic evidence of malignancy. BIRADS 1 - Negative RECOMMENDATION(S): Follow-up Mammogram 1 Year LATERALITY: Bilateral DENSITY: There are scattered areas of fibroglandular density. Reported and Signed by: ??Cassandra Ramos MD Narrative 06/24/2022 1:30 PM EST BILATERAL SCREENING MAMMOGRAM WITH TOMOSYNTHESIS EXAM DATE: 06/22/2022 8:44 AM HISTORY: ROUTINE. TECHNIQUE: Bilateral digital mammography with tomosynthesis was performed. This case was examined by a computer aided detection device. COMPARISON(S): 12/09/2020 TISSUE DENSITY: There are scattered areas of fibroglandular density. FINDINGS: There are no suspicious masses, suspicious calcifications, or secondary signs of malignancy within either breast. Procedure Note de Cassandra Lowry MD - 06/24/2022 BILATERAL SCREENING MAMMOGRAM WITH TOMOSYNTHESIS EXAM DATE: 06/22/2022 8:44 AM HISTORY: ROUTINE. TECHNIQUE: Bilateral digital mammography with tomosynthesis was performed.This case was examined by a computer aided detection device. COMPARISON(S): 12/09/2020 TISSUE DENSITY: There are scattered areas of fibroglandular density. FINDINGS: There are no suspicious masses, suspicious calcifications, or secondarysigns of malignancy within either breast. IMPRESSION: No mammographic evidence of malignancy. BIRADS 1 - Negative RECOMMENDATION(S): Follow-up Mammogram 1 Year LATERALITY: Bilateral DENSITY: There are scattered areas of fibroglandular density. Reported and Signed by: Cassandra Ramos MD Asia NIXON IMG MAMMOGRAPHY ORDERABLE S Final Result from Last 3 Months or Most Recently Relevant to Health Maintenance Insurance Advance Directives * Full ACLS (Latest Code Status on File) Date Activated Date Inactivated Comments 10/23/2016 7:46 AM 10/23/2016 3:01 PM Care Teams Roof Fixer Relationship Specialty Start Date End Date Davin Horn NP [facility] [place] [phone] PCP - General Family Medicine 06/26/19
--- OUTSIDE RECORDS SUMMARY | 2024-06-02 07:36 | XMS_ITS | Encounter Summary ---
Author Organization [facility] Address [address] [place] [address] Care Team Providers Care Decorator Inspector Name Role Phone Davin Horn MD Primary Care Provider [phone] Jennifer Mojica PsyD Unavailable [phone] Alexandrea Story SUPERVISOR WATER SOFTENER SERVICE Unavailable Encounter Details Date Type Department Care Team (Late st Contact Info) Description 05/24/2024 Orders Only [facility] Medical Weight Loss [address] [phone] Alexandrea Story, SUPERVISOR WATER SOFTENER SERVICE 10 [facility] [address] [place], [place] [id number] Obesity, Class III, BMI 40-49.9 (morbid obesity) (HCC); MAURICIO (obstructive sleep apnea) Social History Tobacco Use Types Packs/Day Years Used Date Smoking Tobacco: Never Smokeless Tobacco: Never Alcohol Use Standard Drinks/Week Comments Not Currently 0 (1 standard drink = 0.6 oz pur e alcohol) [facility] [place] [facility] Occup[facility] - Occupational Stress [...] Description 06/08/2024 8:30 AM EST Office Visit [facility] Bariatric Surgery [address] [phone] Michael Pina MD [address] [place] [address] 10/07/2024 8:40 AM EDT Office Visit [facility] Medical Weight Loss [address] [phone] Alexandrea Story APRN [address] [address] documented as of this encounter Visit Diagnoses Diagnosis Obesity, Class III, BMI 40-49.9 (morbid obesity) (HCC) MAURICIO (obstructive sleep apnea) Obstructive sleep apnea (adult) (pediatric) documented in this encounter Care Teams Decorator Inspector Relationship Specialty Start Date End Date Davin Horn MD [address] [place] [address] PCP - General Family Medicine 10/24/20 Jennifer Mojica PsyD [address] [place] [address] Clinical Psychologist Psychology 12/14/20 Alexandrea Story APRN [address] [place] [address] Nurse Practitioner Internal Medicine 06/03/23 documented as of this encounter
--- OUTSIDE RECORDS SUMMARY | 2024-06-02 07:36 | XMS_ITS | Encounter Summary ---
Author Organization [facility] Address [address] [place] [address] Care Team Providers Care Paper Hanger Name Role Phone Pcp, No Primary Care Provider Davin Kenny MD Primary Care Provider Jennifer Mojica PsyD Unavailable Alexandrea Story DISTRICT SALES MANAGER Unavailable Encounter Details Date Type Department Care Team (Late st Contact Info) Description 08/13/2017 Scanned Document [facility] Oncology [address] [place] [address] Provider, MD Anjum [address] [place] [id number] Social History Tobacco Use Types Packs/Day Years Used Date Smoking Tobacco: Never Assessed Sex and Gender Information Value Date Recorded Sex Assigned at Female 07/15/2022 9:08 AM EST Gender Identity Female 07/15/2022 9:08 AM EST Sexual Orientation Heterosexual (straight) 07/15 9:08 AM EST documented as of this encounter Plan of Treatment Upcoming Encounters Date Type Department Care Team (Late st Contact Info) Description 06/08/2024 8:30 AM EST Office Visit [facility] Bariatric Surgery [address] [phone] Michael Pina MD [address] [place] [address] 10/07/2024 8:40 AM EDT Office Visit [facility] Medical Weight Loss [facility] [address] [facility] [address] [place] [phone] Alexandrea Story APRN [address] [facility] [address] [place] [address] documented as of this encounter Visit Diagnoses Not on filedocumented in this encounter Care Teams Paper Hanger Relationship Specialty Start Date End Date Pcp, No PCP - General General Medicine 07/27/20 10/23/20 Davin Horn MD [address] [place] [address] PCP - General Family Medicine 10/24/20 Jennifer Mojica PsyD [address] [place] [address] Clinical Psychologist Psychology 12/14/20 Alexandrea Story APRN [address] [place] [address] Nurse Practitioner Internal Medicine 06/03/23 documented as of this encounter
--- OUTSIDE RECORDS SUMMARY | 2024-06-02 07:36 | XMS_ITS | Encounter Summary ---
Author Organization [facility] Address [address] [place] [address] Care Team Providers Care Autopsy Assistant Name Role Phone Davin Horn MD Primary Care Provider [phone] Jennifer Mojica PsyD Unavailable [phone] Alexandrea Story DIRECTOR FINANCIAL SYSTEMS Unavailable [phone] Encounter Details Date Type Department Care Team (Late st Contact Info) Description 11/26/2023 Scanned Document [facility] Medical Weight Loss [address] [phone] Alexandrea Story, DIRECTOR FINANCIAL SYSTEMS 10 [facility] 100 [place] [address] Social History Tobacco Use Types Packs/Day Years Used Date Smoking Tobacco: Never Smokeless Tobacco: Never Alcohol Use Standard Drinks/Week Comments Not Currently 0 (1 standard drink = 0.6 oz pur e alcohol) [facility] [place] of Occupat ional Health - Occupational Stress [...] Description 06/08/2024 8:30 AM EST Office Visit [facility] Bariatric Surgery [address] [phone] Michael Pina MD [address] [place] [address] 10/07/2024 8:40 AM EDT Office Visit [facility] Medical Weight Loss [address] [phone] Alexandrea Story APRN [address] [place] [phone] documented as of this encounter Visit Diagnoses Not on filedocumented in this encounter Care Teams Autopsy Assistant Relationship Specialty Start Date End Date Davin Horn MD [address] [place] [address] PCP - General Family Medicine 10/24/20 Jennifer Mojica PsyD [address] [place] [address] Clinical Psychologist Psychology 12/14/20 Alexnadrea Story APRN [address] [place] [address] Nurse Practitioner Internal Medicine 06/03/23 documented as of this encounter
--- OUTSIDE RECORDS SUMMARY | 2024-06-02 07:36 | XMS_ITS | Data Portability ---
Author Organization [place] - [facility], [facility] Address [id number] [place] [address] Assessment No assessment recorded. Plan of Treatment Reminders Order Date Submit Date Provider Last Modified By Organization Details Last Modified Time Details Appointments None recorded. Lab test, urine 2017 018 In-Office Order, Internal Use Only DO Not Attach Compendium DO Not Attach Compendium, Do Not Delete/merge, [id number] 8 13:32:53 pap, IG + HPV 2019 020 [facility], [address] [place] [address], [id number] 0 06:52:44 pap, IG + HPV 2022 023 [facility], [address] [place] [address], [address] 3 15:03:30 Referral None recorded. Procedures None recorded. Surgeries None recorded. Imaging US, transvagina l 2017 018 [email or web address] Not available 8 15:01:52 MAMMO, screening, digital, bilateral 2019 020 [email or web address] Not available 0 10:26:34 MAMMO, screening, digital, bilateral 2020 021 ROSEMARY Not available 1 12:29:05 MAMMO, screening, digital, bilateral 2022 023 ROSEMARY Not available 3 13:41:43 MAMMO, screening, digital, bilateral 2023 024 [facility] ([facility]) Imaging, [address], [place], [address], 13:54:57 Medication Orders None recorded. Patient TargetsNo targets recorded. Patient Instructions Encounter Date Encounter Id Patient Instructions Last Modified By Organization Details Last Modified Time 05/31/2019 [id number] tips to help you stay healthy Not available 05/31/2019 13:42:26 When You Want to Lose Weight: Care Instructions Not available 05/31/2019 13:42:26 08/18/2020 [id number] When You Want to Lose Weight: Care Instructions Not available 08/18/2020 15:03:13 tips to help you stay healthy Not available 08/18/2020 15:03:13 05/22/2022 [id number] tips to help you stay healthy Not available 05/22/2022 12:00:31 07/04/2023 [id number] tips to help you stay healthy [email or web address] Not available 07/04/2023 15:22:19 Reason for Referral None Reported. Results Created Date Observation Date Name Description Value Unit Range Abnormal Flag Note LastModifiedBy Organization Detail LastModifiedTime 09/27/19 18 09/26/2017 pregn leonor test, urine Result negati ve Not Available In-Office Order Internal Use Only DO Not Attach Compendium DO Not Attach Compendium, Do Not Delete/merge, [id number] 09/26/2017 13:32:47 05/31/19 20 05/31/2019 HPV DNA, [...] detec t all [facility] Not Available [facility] [address] [place], [address] 06/03/2019 06:52:42 05/31/1905/31/2019 pap, IG + HPV report Report Final [...] . Elect cristian Terry d: Blaine Peña, [place] (ASCP ) ----- ----- ----- ----- ----- ----- ----- ----- ----- ----- ----- ----- CLINI RAJAN INFOR DAVID N: LMP: NG Clini rajan Histo ry: RTN Speci men [facility] e: Cervi x, Endoc ervix Previ ous Pap Date: 12/28 HPV RESUL TS: HPV mRNA E6/E7 19 Appro pool: 06/01 Negat jose REF RANGE : Negat jose CPT Codes : 99926 ICD Codes : Z01.4 19 Not Available [facility] [address] [place], [address] 06/03/2019 06:52:44 05/23/19 23 05/31/2022 THINP REP TIS PAP AND HPV MRNA E6/E7 WITH REFLE X TO HPV 16,18 /45 clinical information: normal None given Not Available [facility] [place] [facility] [address], [place], [address], 05/31/2022 15:03:30 05/23/1905/31/2022 THINP REP TIS PAP AND HPV MRNA E6/E7 WITH REFLE X TO HPV 16,18 /45 LMP: normal NONE GIVEN Not Available [facility] [place] [facility] [address] [place], [address], 05/31/2022 15:03:30 05/23/19 23 05/31/2022 THINP REP TIS PAP AND HPV MRNA E6/E7 WITH REFLE X TO HPV 16,18 /45 prev. Pap: normal NONE GIVEN Not Available [facility] [place] [facility] [address] [place], [address], 05/31/2022 15:03:30 05/23/19 23 05/31/2022 THINP REP TIS PAP AND HPV MRNA E6/E7 WITH REFLE X TO HPV 16,18 /45 prev. BX: normal NONE GIVEN Not Available [facility] [place] [facility] [address] [place], [place], [address], 05/31/2022 15:03:30 05/23/19 23 05/31/2022 THINP REP TIS PAP AND HPV MRNA E6/E7 WITH REFLE X TO HPV 16,18 /45 source: normal Cervi x, Endoc ervix Not Available [facility] [place] [facility] [address] [place], [address], 05/31/2022 15:03:30 05/23/19 23 05/31/2022 THINP REP TIS PAP AND HPV MRNA E6/E7 WITH REFLE X TO HPV 16,18 /45 statement of adequacy: normal Satis facto ry for evalu ation . Endoc ervic al/tr ansfo rmati on zone compo nent prese nt. Age and/o r menst rual statu s not provi ded Not Available [facility] [place] [facility] [address] [place], [address], 05/31/2022 15:03:30 05/23/19 23 05/31/2022 THINP REP TIS PAP AND HPV MRNA E6/E7 WITH REFLE X TO HPV 16,18 /45 interpretati on/result: normal Negat jose for intra epith elial lesio n or nichole saldana . Not Available [facility] [place] [facility] [address], [address], 05/31/2022 15:03:30 05/23/19 23 05/31/2022 THINP REP TIS PAP AND HPV MRNA E6/E7 WITH REFLE X TO HPV 16,18 /45 comment: normal This Pap test has been evalu ated with compu villalta techn ology . Not Available [facility] [place] [facility] [address], [address], 05/31/2022 15:03:30 05/23/19 23 05/31/2022 THINP REP TIS PAP AND HPV MRNA E6/E7 WITH REFLE X TO HPV 16,18 /45 cytotechnolo gist: normal SXA, CT( CP) CT scree tia locat ion: [facility] [address], [place] [address] Not Available [facility] [place] [facility] [address], [address], 05/31/2022 15:03:30 05/23/19 23 05/31/2022 THINP REP TIS PAP AND HPV MRNA E6/E7 WITH REFLE X TO HPV 16,18 /45 review cytotechnolo gist: normal VIDYA, CT( CP) CT scree tia locat ion: [facility] [address], [place] [address] Not Available [facility] [place] [facility] [address], [address], 05/31/2022 15:03:30 05/23/19 23 05/31/2022 THINP REP [...] clini rajan infor david n. Not Available [email or web address] [place] [facility] [address], [place], [address], 05/31/2022 15:03:30 05/23/19 23 05/31/2022 THINP REP [...] ng optio ns. For addit ional infor magy traylor e refer to http: //brianna goldberg.que stdia gnost ics.c om/fa q/FAQ 129v1 (This link if provi ded for infor david goldberg/ joselyn rivas purpo ses only. ) Not Available [facility] [place] [facility] [address], [place], [address], 05/31/2022 15:03:30 10/02/19 18 10/01/2017 US, trans vagin al RAD [email or web address] [facility] [address] [facility], [place], [address] 10/29/2017 15:01:52 06/28/19 20 MAMMO , scree tia, digit al, bilat eral [facility] [facility]No [facility]theas [facility] & [place] [facility] [address] [place] [address] MAMMO SCREEN ING MAR BILATE RAL RAEGAN WILBURN Sex: F : [phone] Servic e Date: 06-26 [id number] BILATE RAL MAMMOG TELMA WITH TOMOSY NTHESI [...] By: Shirley james MD, 06/28 15:05: [email or web address] [place] [address] (Imaging) [address], [place], [address], 06/30/2019 14:33:45 07/02/19 20 mammo diagn ostic mar left( gh yh lm ) [facility] [address] [place] [address] MAMMO DIAGNO STIC MAR LEFT([facility]) RAEGAN WILBURN Sex: F : [id number] [phone] Servic e Date: 07-02 [id number] UNILAT ERAL LEFT DIAGNO STIC MAMMOG TELMA [...] MD, 07/02 15:42: 47 [facility] to link [email or web address] [facility] (Imaging) [address] [facility] [place], [address], 07/05/2019 11:07:22 03/24/20 20 mammo diagn ostic mar left( [facility]) [facility] [place] [facility] [address] [place] [address] [phone] MAMMO DIAGNO STIC MAR LEFT(G [facility]) RAEGAN WILBURN Sex: F : [phone] Servic e Date: 2019-05 [id number] UNILAT ERAL LEFT MAMMOG TELMA WITH TOMOSY [...] By: Shirley james MD, 05/24 15:11: 17 [facility] (Imaging) [address] [place], [address], 03/27/2020 13:09:26 12/14/19 21 12/09/2020 MAMMO , scree tia, digit al, bilat eral No observ ation record ed. [email or web address] [facility] [address] [place] [address], [address], 12/14/2020 08:34:40 06/24/19 23 06/22/2022 MAMMO , scree tia, digit al, bilat eral No observ ation record ed. [email or web address] Not Available 2022 16:33:16 Result Notes None recorded. Problems Name Problem SNOMED Code Status Onset Date Resolution Date Notes Provider Name and Address Organization Details Recorded Time Morbid obesity 501952370 Active MADDIE MO [address] [facility], [address] [place], [address] , [facility] 6 15:36:08 Dysfunctional uterine bleeding Active Sandra ariza, [facility] 5 10:53:08 Problem Notes None recorded. Procedures Surgical History Date Name Laterality Status Provider Name and Address Organization Details Recorded Time 04/25/20 21 laparoscopic sleeve gastrectomy completed Naeem Diaz [facility] 05/22/2022 11:38:58 12/10/19 21 Date of Last Mammogram completed LUX SANDY APRN [address] [facility], [place], [address], [facility] 05/22/2022 11:47:33 12/21/19 20 repair of long head of biceps brachii completed MADDIE MO [address] [facility], [place], [address], [facility] 08/18/2020 14:44:18 01/20/20 20 V4N-SAY completed MADDIE MO [address], [place], [address], [place] [facility] 05/31/2019 13:39:49 05/31/19 20 Date of Last Pap Smear completed LUX SANDY APRN [address], [place], [address], [place] [facility] 05/22/2022 11:47:13 10/24/19 17 Hysteroscopy completed Teresa Walker MD [place] - [facility] 10/31/2016 12:03:15 09/10/19 17 Saline Infusion Sonogram (SIS) completed Teresa Walker MD [place] [facility] 09/09/2016 09:32:35 09/03/19 17 Endometrial Biopsy Procedure Note completed MADDIE MO [address], [address], [place], [address], [facility] - [facility] 09/02/2016 09:39:45 12/29/19 16 A5N-VAO completed MADDIE MO [address], [address], [place], [address], [facility] - [facility] 12/29/2015 15:34:36 12/29/19 16 C0I-SVP completed MADDIE MO [address], [address] Floor, [place], [address], [facility] - [facility] 12/29/2015 15:34:36 12/29/19 16 V9C-GQICCPN completed MADDIE MO [address], [address], [place], [address], [facility] - [facility] 12/29/2015 15:34:36 12/29/19 16 N7A-ZOQYDU completed MADDIE MO [address], [address], [place], [address], [place] [facility] 12/29/2015 15:34:36 Imaging Results Imaging Date Name Status LastModified by Organization Details LastModified Time 10/01/2017 US, transvaginal completed [email or web address] [facility] [address] [facility], [place], [address] 10/29/2017 15:01:52 06/28/2019 MAMMO, screening, digital, bilateral completed [facility] (Imaging) [address] [place], [address], 06/30/2019 14:33:45 07/02/2019 mammo diagnostic mar left([facility]) completed [facility] (Imaging) [address] [place], [address], 07/05/2019 11:07:22 03/24/2020 mammo diagnostic mar left([facility]) completed [facility] (Imaging) [address] [place], [address], 03/27/2020 13:09:26 12/09/2020 MAMMO, screening, digital, bilateral completed [email or web address] [facility] [address] [place] [address], [address], 12/14/2020 08:34:40 06/22/2022 MAMMO, screening, digital, bilateral completed [email or web address] Information not available 06/24/2022 16:33:16 Procedure Notes None recorded. Medical Equipment None Reported. Allergies Allergen ID Allergen Name Allergen Category Reaction Reaction Severity Criticality Documentation Date Start Date Code Code System Note Provider Name and Address Organization Details Recorded Time [id number] fluticaso ne / salmetero l medicatio n Not available Not available Not available 08/18/2020 85524 5 RxNorm Silvia ariza, [facility] 14:28:51 4758220 levothyro xine sodium medicatio n Not available Not available Not available 08/18/2020 78420 RxNorm Silvia ariza, [facility] 14:28:57 1846361 codeine medicatio n Not available Not available Not available 08/18/2020 2670 RxNorm Silvia Chamberlain null, [facility] 1 14:29:10 0356715 metoprolo l Not available Not available Not available Not available 05/22/2022 6918 RxNorm Naeem Diaz null, [facility] 3 11:34:07 1036242 metformin medicatio n myalgias (muscle pain) severe Not available 07/04/2023 6809 RxNorm Isamar Akhtar null, [facility] 4 15:07:22 626068 skin cleanser combinati on no. 4 Not available Not available Not available Not available 10/11/20142013 08179 UNK COMME NT: CAUSA TIVE AGENT : [place]; Isamar Akhtar null, [facility] 4 15:06:56 153230 minocycli ne hydrochlo ride medicatio n Not available Not available Not available 10/11/20142013 6979 RxNorm COMME NT: CAUSA TIVE AGENT : [place]OC [place]; Not Available [facility] 5 17:50:58 Medications Name Sig Start Date [...] Updated DateTime 09/26/2017 165.1 cm Silvia Chamberlain [facility] 09/26/2017 12:55:44 Date Recorded Body mass index (BMI) Body weight Provider Name and Address Organization Details Last Updated DateTime 09/26/2017 52.1 kg/m2 864278.41 g Silvia Chamberlain [facility] 09/26/2017 12:55:54 Date Recorded Body weight Provider Name an d Address Organization Details Last Updated DateTime 05/31/2019 401413.52 g Leticia [facility] 05/31/2019 13:04:29 Date Recorded Body mass index (BMI) Body height Provider Name and Address Organization Details Last Updated DateTime 05/31/2019 54.1 kg/m2 165.1 cm Leticia [facility] 05/31/2019 13:04:33 Date Recorded Body weight Provider Name an d Address Organization Details Last Updated DateTime 08/18/2020 993850.37 perry Chamberlain [facility] 08/18/2020 14:27:52 Date Recorded Body mass index (BMI) Body height Provider Name and Address Organization Details Last Updated DateTime 08/18/2020 52.9 kg/m2 165.1 cm Silvia Chamberlain [facility] 08/18/2020 14:31:18 Date Recorded Body height Provider Name an d Address Organization Details Last Updated DateTime 05/22/2022 165.1 cm Naeem Diaz [facility] 05/22/2022 11:33:40 Date Recorded Body mass index (BMI) Body weight Provider Name and Address Organization Details Last Updated DateTime 05/22/2022 46.1 kg/m2 265517.09 perry Diaz [facility] 05/22/2022 11:33:48 Date Recorded Body height Provider Name an d Address Organization Details Last Updated DateTime 07/04/2023 165.1 cm Isamar Akhtar [facility] 07/04/2023 15:07:37 Date Recorded Body mass index (BMI) Body weight Provider Name and Address Organization Details Last Updated DateTime 07/04/2023 49.9 kg/m2 467822.71 perry Akhtar [facility] 07/04/2023 15:07:43 Date Recorded Systolic blood pressure Diastolic blood pressure Provider Name and Address Organization Details Last Updated DateTime 09/26/2017 124 mm[Hg] 80 mm[Hg] Silvia Chamberlain [facility] 09/26/2017 12:59:25 Date Recorded Systolic blood pressure Diastolic blood pressure Provider Name and Address Organization Details Last Updated DateTime 05/31/2019 122 mm[Hg] 78 mm[Hg] Leticia Rober [facility] 05/31/2019 13:06:15 Date Recorded Systolic blood pressure Diastolic blood pressure Provider Name and Address Organization Details Last Updated DateTime 08/18/2020 110 mm[Hg] 80 mm[Hg] Silvia Chamberlain [facility] 08/18/2020 14:32:56 Date Recorded Systolic blood pressure Diastolic blood pressure Provider Name and Address Organization Details Last Updated DateTime 05/22/2022 118 mm[Hg] 84 mm[Hg] Naeem Diaz [facility] 05/22/2022 11:38:11 Date Recorded Systolic blood pressure Diastolic blood pressure Provider Name and Address Organization Details Last Updated DateTime 07/04/2023 120 mm[Hg] 60 mm[Hg] Isamar Akhtar [facility] 07/04/2023 15:09:49 Social History Question Answer Notes LastModified by Organizat ion Details LastModified Time Tobacco Smoking Status [facility] 10:34:01 What Is Your Level Of Alcohol Consumption? Occasional Information not available 05/22/2022 Concerns About Meeting Basic Needs (food, Housing, Heat, Etc)? No Information not available 05/22/2022 Are You Currently Employed? Yes Information not available 05/22/2022 Do You Or Have You Ever Used E-cigarettes Or Vape? 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 07/04/2023 [email or web address] Information not available 07/04/2023 How Many Children Do You Have? 1 Information not available 08/18/2020 Are You Sexually Active? Yes [email or web address] Information not available 07/04/2023 Do You Or Have You Ever Used Smokeless Tobacco? Never Used Smokeless Tobacco Information not available 05/22/2022 How Much Tobacco Do You Smoke? No Information not available 08/18/2020 Sex: Unknown Functional Status Question Answer Note LastModified by Organizat ion Details LastModified Time What is your exercise level? Occasional once a week at gym Information not available 07/04/2023 Mental Status None recorded. Family History Relationship Description Onset Age of this Age Resolved Age Notes LastModified by Organization Details LastModified Time Mother Diffuse non-Hodgkin' s lymphoma [email or web address] Not available 0 07/04/2023 14:25:11 Maternal Grandmother [...] SNOMED-CT Code Diagnosis ICD10 Code Diagnosis Note [id number] [facility] [address] [place] [address] 01/23/2011 00:00:00 [id number] [facility] [address] [place] [address] 07/03/2011 00:00:00 [id number] [facility] [address] [place] [address] 07/19/2011 00:00:00 [id number] [facility] [address] [place] [address] 08/08/2011 00:00:00 [id number] [facility] [address] [place] [address] 09/13/2011 00:00:00 [id number] [facility] [address] [place] [address] 01/31/2012 00:00:00 [id number] [facility] [address] [place] [address] 09/25/2012 00:00:00 [id number] [facility] [address] [place] [address] 11/04/2013 00:00:00 [id number] [address] [place] [address] 12/27/2014 10:23:04 12/27/2014 10:45:30 Gynecologic examination 24779979 Dysfunctio nal uterine bleeding 15588166 [id number] MADDIE MO [address] [place] [address] 12/29/2015 14:02:30 12/29/2015 14:49:09 Gynecologic examination 68202200 Z01.419 Exam wnl. PAP done. Discussed in [...] year for annual or prn. Morbid obesity 611997944 E66.01 Discussed diet, habits, exercise and weight loss programs that are suitable. Encouraged small changes. [id number] MADDIE MO TO[address] [address] 07/26/2016 13:38:21 07/26/2016 14:19:50 Amenorrhea 48216013 N91.2 Lack of menses likely due to morbid obesity/PC OS. Will check blood work. Pt to start provera 10mg x10 days. Discussed continuing provera x10 days ? q3 months, or aygestin x10 days monthly or IUD. Will discuss further after blood results. Discussed weight loss and exercise in depth and the importance for return of menses and overall health. [id number] MADDIE MO TOG[address] [place] [address] 09/02/2016 08:55:45 09/02/2016 09:34:28 Amenorrhea 97760244 N91.2 EBX done, sent to pathology. Pt has sonohyst next week. Will continue with provera q2 ? months at this time. [id number] Teresa Walker MD TOG[address] [place] [address] 09/09/2016 09:06:11 09/09/2016 09:34:45 Polyp of corpus uteri 70741867 N84.0 [id number] Teresa Walker MD [address] [place] [address] 09/13/2016 14:22:18 09/13/2016 14:50:26 Abnormal uterine bleeding 4530632990 9100 N93.9 [id number] MD CORNELL Vallejo [address] [place] [address] 10/11/2016 10:16:25 10/11/2016 10:47:37 Abnormal uterine bleeding 7003597015 9100 N93.9 [id number] MD CORNELL Vallejo [address] [address] 11/04/2016 09:00:37 11/04/2016 09:21:33 Postoperative visit 746459570 Z09 [id number] MADDIE MO [address] [address] 09/26/2017 12:51:06 09/26/2017 13:36:33 Pain in pelvis 32271315 R10.2 Exam benign except pt developed cramping after exam. Discussed possible ovarian cyst or IUD malpositon although IUD strings are appropriat e length. Minimal bleeding. Had nml urine testing with PCP. Neg preg test. Will check pelvic US. [id number] MADDIE MO [address] [address] 05/31/2019 12:56:14 05/31/2019 13:34:42 Gynecologic examination 22453186 Z01.419 Exam wnl. PAP collected. Screening mammo recommende d. F/u in 1 year for annual or prn. Morbid obesity 767809585 E66.01 Discussed diet, exercise and weight loss programs, specifical ly weight watchers. [id number] MADDIE MO TOG1 [address] [address] 08/18/2020 14:22:00 08/18/2020 14:54:00 Gynecologic examination 79073959 Z01.419 Exam wnl. PAP deferred, nml 2020. Screening mammo ordered. F/u in 1 year for annual or prn. Obesity 857887996 E66.9 Pt lost 30lbs last year prior to onset of migraines. Working on diet to continue weight loss efforts. [id number] LUX SANDY, ISAURO TOG1 [address] [place] [address] 05/22/2022 11:25:55 05/22/2022 13:06:10 Gynecologic examination 96113377 Z01.419 Discussed health diet, exercise, breast self-aware ness. Pap performed today. Referral for mammo. Mirena due for replacemen t 09/2024. f/u in 1 year for annual exam. [id number] MICHAEL SCHMITTPKINS, ISAURO TOG1 [address] [place] [address] 07/04/2023 14:24:44 07/07/2023 06:48:32 Gynecologic examination 41065791 Z01.419 Well women exam. Pt with no [...] PRIOR TO 2024 - [employer] () STANDARD Thien Wilburn Jr [id number] Raegan Wilburn 05/31/2019 1 EAST - DOS PRIOR TO 2024 - [employer] () STANDARD [facility] [id number] Raegan Gonzalez Levisch 08/18/2020 1 EAST - DOS PRIOR TO 2024 - [employer] () STANDARD [facility] [id number] Raegan Gonzalez Levisch 05/22/2022 1 EAST - DOS PRIOR TO 2024 - [employer] () STANDARD [facility] [id number] Raegan Gonzalez Levisch 07/04/2023 1 EAST - DOS PRIOR TO 2024 - [employer] () STANDARD [facility] [id number] Raegan Gonzalez Levikamlesh Notes Date Note Type [...] every 3-4 hours at most. 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 Last PAP 2016, nml. Had mirena IUD placed 2017 after D&C hysteroscopy for EM polyp. No menses. No urinary complaints. Recently fell and tore something in her shoulder and broke her foot. Has tried a few different weight loss programs with little success. [place] [facility] [address] [facility], [place], [address], 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 Last PAP 2019, nml. Had mirena IUD placed 2017 after D&C hysteroscopy for EM polyp. No menses. No urinary complaints. Has had a migraines for multiple weeks. Seeing neurology, found to have had a stroke, unsure when. [place] [address] [facility] [address] [facility], [place], [address], [facility] 08/18/2020 15:03:32 05/22/2022 text/html [facility] Annual GYNReported bypatient.History:no gynecologic complaints Menstrual cycle:Normal [...] or night sweats. LUX SANDY APRN [address] [facility] [place], [address], [facility] 05/22/2022 12:01:07 07/04/2023 text/html Pt is a 42 yo F here for an annual exam. Pt has a hx of hysteroscopy, CVA, htn, asthma, gerd, hypoT. Pt reports no complaintsLMP: spottingBirth control: mirena (placed 09/2016)Pap: 2022Mammo: 3Colonoscopy: (pcp referred for august)HPV vaccine: noFlu vaccine: yes MICHAEL CHRISTIANSON APRN [address] [facility] [facility], [place], [address], [facility] 07/04/2023 15:22:27 OBGyn Episode No OBEpisode recorded.
--- OUTSIDE RECORDS SUMMARY | 2024-06-02 07:36 | XMS_ITS | Encounter Summary ---
Author Organization [facility] Address [address] [place] [address] Care Team Providers Care Carton Making Machine Operator Name Role Phone Davin Horn MD Primary Care Provider [phone] Jennifer Mojica PsyD Unavailable [phone] Alexandrea Story AUTOMOBILE CLUB MEMBERSHIP SALES AGENT Unavailable Reason for Visit * Reason Comments Obesity Follow-up Encounter Details Date Type Department Care Team ([facility] Contact Info) Description 05/20/2024 7:00 AM EST Office Visit [facility] Medical Weight Loss [address] [phone] Alexandrea Story, AUT[employer] MEMBERSHIP SALES AGENT 10 [facility] 100 [place], [place] [id number] Obesity, Class III, BMI 40-49.9 (morbid obesity) (HCC) (Primary Dx); MAURICIO (obstructive sleep apnea) Social History Tobacco Use Types Packs/Day Years Used Date Smoking Tobacco: Never Smokeless Tobacco: Never Alcohol Use Standard Drinks/Week Comments Not Currently 0 (1 standard drink = 0.6 oz pur e alcohol) [place] [facility] - Occupational Stress [...] AM EST documented as of this encounter Last Filed Vital Signs Vital Sign Reading Time Taken Comments Blood Pressure 102/72 05/20/2024 7:04 AM EST Pulse 72 05/20/2024 7:04 AM EST Temperature - - Respiratory Rate - - Oxygen Saturation - - Inhaled Oxygen Concentration - - Weight 130 kg (286 lb 1.6 oz) 05/20/2024 7:04 AM EST Height 165.1 cm (5' 5 ) 05/20/2024 7:04 AM EST Body Mass Index 47.61 05/20/2024 7:04 AM EST documented in this encounter Progress Notes * Alexandrea Story APRN - 05/20/2024 7:00 AM EST Medical Weight Loss Follow-Up Date: 05/20/24 Name: Raegan Meyer : 1980 A/P: 1. Obesity, Class III, BMI 40-49.9 (morbid obesity) (HCC) - tirzepatide (ZEPBOUND) 2.5 mg/0.5 mL pen-injector; Inject 1 Pen (2.5 mg total) under the skin once a week. Dispense: 2 mL; Refill: 1 2. MAURICOI (obstructive sleep apnea) - tirzepatide (ZEPBOUND) 2.5 mg/0.5 mL pen-injector; Inject 1 Pen (2.5 mg total) under the skin once a week. Dispense: 2 mL; Refill: 1 Raegan is not responsive to treatment. She has gained 3 lbs. since her initial consultation. This represents a weight change of 1.1%. AOM: Contraindicated: metformin (SE and IIH), topiramate/Qsymia (SE), contrave (SE), phentermine (uncontrolled migraines) GLP-1- has not been covered in the past by patient insurance Discussed options for coverage- patient would like to try to submit through insurance again. I alsoreviewed zepbound vial option and generic liraglutide as and option Start zepbound 2.5 mg weekly Diet Rx: LGD Exercise Rx: 150 minutes per week of sustained, light-moderately intense cardiovascular activity. Keep a food and activity log. Return in about 3 months (around 08/18/2024). Subjective: Raegan presents to the Medical Weight Loss Program for a scheduled follow-up appointment. We last saw her on 12/09/23. Raegan is a 43 y.o. year of age female with a significant medical history of obesity and unintended weight gain. Suspect she also has PCOS but was never diagnosed. 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 Patient Active Problem List Diagnosis Morbid obesity with BMI of 45.0-49.9, adult (HCC) Acquired hypothyroidism Chronic fatigue Chronic pain of left knee Fibromyalgia Gastroesophageal reflux disease Hyperglycemia Hypertension Iron deficiency anemia Migraine without status migrainosus, not intractable Changes/challenges since last visit: Patient reports that she tried ozempic (semaglutide) samples from a pcp office and it helped with her migrained Review of Systems: Constitutional: no c/o fatigue Endocrine: + recent weight change Cardiac: no c/o chest pain or palpitations Respiratory: no c/o SOB Gastrointestinal: no c/o reflux, nausea, vomiting, abdominal pain, diarrhea Musculoskeletal: no c/o pain Neuro: no c/o lightheadedness or dizziness Psychiatric/Behavioral: no mood changes Rx Medication Changes: see Medication List in chart. Weight Loss Rx Medications: none currently Rx SE: n/a History of Bariatric Surgery: LSG 2020 (pre-op weight 319) Lowest weight after surgery ~279 lbs, reached a few months after surgery Active Problems: Reviewed list w/patient. Refer to chart. Dietary Habits Breakfast:: Egg and cheese on low carb wrap Lunch:: Christine pepper with ham Dinner:: Beef and veggies Snacks:: Korbel seeds Fluids:: Water, coffee Appetite Daily Water Intake (oz):: 84 Appetite:: Controlled Food triggers (check all that apply): Parties Exercise What type of exercises do you do?: None How often do you exercise? : 0 Physical Limitations:: Other Objective: BP 102/72 Pulse 72 Ht 1.651 m (5' 5 ) Wt 130 kg (286 lb 1.6 oz) BMI 47.61 kg/m?? Starting WT: 283 lbs. on 5/26/23 Weight JOHNNY: 292 lbs on 12/09/23 WT Change since last visit: -6 lbs. Recent/Relevant Labs: 05/03/23 Physical Exam: Constitutional: Well-nourished, no acute distress Neurologic: Alert and Oriented x 3 Cardiovascular: heart RRR, NL pulses, no edema Musculoskeletal: NL gait Skin: well-hydrated Psychiatric: NL mood and affect, NL behavior and judgment Alexandrea Story APRN 05/20/24 Medical Weight Loss Follow up Visit Weight Data BMI (Calculated): 47.6 Weight: 130 kg (286 lb 1.6 oz) Weight in Pounds: 286.1 lbs Initial Weight: 283.8 Weight Loss (in lbs.): -2.3 lbs Change Total Body Weight % in lbs: -0.8 % documented in this encounter Plan of Treatment Upcoming Encounters Date Type Department Care Team (Late st Contact Info) Description 06/08/2024 8:30 AM EST Office Visit [facility] Bariatric Surgery [address] [phone] Michael Pina MD [address] [place] [address] 10/07/2024 8:40 AM EDT Office Visit [facility] Medical Weight Loss [address] [phone] Alexandrea Story APRN [address] [address] documented as of this encounter Visit Diagnoses Diagnosis Obesity, Class III, BMI 40-49.9 (morbid obesity) ([facility])- Primary MAURICIO (obstructive sleep apnea) Obstructive sleep apnea (adult) (pediatric) documented in this encounter Care Teams Carton Making Machine Operator Relationship Specialty Start Date End Date Davin Horn MD [address] [place] [address] PCP - General Family Medicine 10/24/20 Jennifer Mojica PsyD [address] [place] [address] Clinical Psychologist Psychology 12/14/20 Alexandrea Story APRN [address] [place] [address] Nurse Practitioner Internal Medicine 06/03/23 documented as of this encounter
--- OUTSIDE RECORDS SUMMARY | 2024-06-02 07:36 | XMS_ITS | Encounter Summary ---
Author Organization [facility] Address [address] [place] [address] Care Team Providers Care Cast Shell Grinder Name Role Phone Davin Horn MD Primary Care Provider [phone] Jennifer Mojica PsyD Unavailable Alexandrea Story QUILT SEWER Unavailable Encounter Details Date Type Department Care Team (Late st Contact Info) Description 08/20/2023 Scanned Document [facility] Medical Weight Loss [address] [phone] Alexandrea Story, QUILT SEWER 10 [facility] 100 [place], [place] [phone] Social History Tobacco Use Types Packs/Day Years Used Date Smoking Tobacco: Never Smokeless Tobacco: Never Alcohol Use Standard Drinks/Week Comments Not Currently 0 (1 standard drink = 0.6 oz pur e alcohol) [facility] [place] [facility] - Occupational Stress [...] 8:30 AM EST Office Visit [facility] Bariatric Surgery [address] [phone] Michael Pina MD [address] [place] [address] 10/07/2024 8:40 AM EDT Office Visit [facility] Medical Weight Loss [address] [phone] Alexandrea Story APRN [address] [place] [phone] documented as of this encounter Visit Diagnoses Not on filedocumented in this encounter Care Teams Cast Shell Grinder Relationship Specialty Start Date End Date Davin Horn MD [address] [place] [address] PCP - General Family Medicine 10/24/20 Jennifer Mojica PsyD [address] [place] [address] Clinical Psychologist Psychology 12/14/20 Alexandrea Story APRN [address] [place] [address] Nurse Practitioner Internal Medicine 06/03/23 documented as of this encounter
--- OUTSIDE RECORDS SUMMARY | 2024-06-02 07:36 | XMS_ITS | Encounter Summary ---
Author Organization [facility] Address [address] [place] [address] Care Team Providers Care Trade Union Official Name Role Phone Davin Horn MD Primary Care Provider [phone] Jennifer Mojica PsyD Unavailable [phone] Alexandrea Story STEEL ENGRAVER Unavailable [phone] Encounter Details Date Type Department Care Team (Late Contact Info) Description 02/28/2021 Scanned Document [facility] Bariatric Surgery [address] [place] [address] Michael Pina MD [address] [place] [address] Social History Tobacco Use Types Packs/Day Years [...] have Coronavirus / COVID-19? No / Unsure 02/26/2021 1:28 PM EDT documented as of this encounter Plan of Treatment Upcoming Encounters Date Type Department Care Team ([facility] Contact Info) Description 06/08/2024 8:30 AM EST Office Visit [facility] Bariatric Surgery [place] [address] [facility] [address] [place] [phone] Michael Pina MD [address] [place] [address] 10/07/2024 8:40 AM EDT Office Visit [facility] Medical Weight Loss [address] [place] [phone] Alexandrea Story APRN [address] [address] documented as of this encounter Visit Diagnoses Not on filedocumented in this encounter Care Teams Trade Union Official Relationship Specialty Start Date End Date Davin Horn MD [address] [place] [address] PCP - General Family Medicine 10/24/20 Jennifer Mojica PsyD [address] [place] [address] Clinical Psychologist Psychology 12/14/20 Alexandrea Story APRN [address] [place] [address] Nurse Practitioner Internal Medicine 06/03/23 documented as of this encounter
--- NOTE | 2024-06-02 07:40 | MHC.PC.OV ---
Vital Signs 06/02/24 07:42 Height 5 ft 5 in Weight 283 lb BMI 47.1 BP 110/70 Blood Pressure Location Lt brachial Position Sitting Pulse 76 Pulse Source Pulse Oximeter Pulse Oximetry (%) 96 Oxygen Delivery Method Room Air Intake Visit Reasons: PE Intake Note: Pt is here today for her PE: Last colonoscopy 06/01/24 Allergies codeine Allergy (Unknown, Verified 06/02/24 07:41) unknown fluticasone [Advair Diskus] Allergy (Unknown, Verified 06/02/24 07:41) Hives levothyroxine sodium [LEVOTHYROXINE SODIUM] Allergy (Unknown, Verified 06/02/24 07:41) ITCHING, rash, itching-NAME BRAND [place] minocycline [MINOCYCLINE] Allergy (Unknown, Verified 06/02/24 07:41) HEADACHE salmeterol [Advair Diskus] Allergy (Unknown, Verified 06/02/24 07:41) Hives acetaminophen [From Vicodin] Adverse Reaction (Unknown, Verified 06/02/24 07:41) Vomiting hydrocodone [From Vicodin] Adverse Reaction (Unknown, Verified 06/02/24 07:41) Vomiting metformin Adverse Reaction (Verified 06/02/24 07:41) muscle weakness topamate Adverse Reaction (Uncoded 06/02/24 07:41) muscle weakness Medication List - Last Reconciled 06/02/24 by JULIO West-MATTHEW acetazolamide mg PO BID albuterol sulfate 90 mcg/actuation (Ventolin HFA) 2 puffs inhalation Q6H PRN 90 days amitriptyline 25 mg PO BEDTIME ascorbate calcium (vitamin C) 500 mg PO DAILY cetirizine 10 mg PO DAILY galcanezumab-gnlm (Emgality Pen) mg subcut hydroxychloroquine (Plaquenil) 150 mg PO DAILY levothyroxine (Synthroid) 25 mcg PO DAILY 90 days magnesium glycinate 400 mg PO DAILY montelukast 10 mg PO DAILY multivitamin (Daily Multi-Vitamin tablet) 1 tab PO DAILY propranolol ER 80 mg PO DAILY 90 days rizatriptan mg PO spironolactone 100 mg PO DAILY 90 days Synthroid (levothyroxine) 200 mcg PO DAILY NS tizanidine 4 mg PO BEDTIME PRN 30 days Tobacco use date assessed: 06/02/24 Dental Screening Dental Screen Date: 06/02/24 Did you have a dental visit in the last 12 months?: Yes Did you have a dental problem in the last 6 months where you did not have access to dental care?: No Was dental information given to patient?: Patient has dentist HPI PE HPI Details History of Present Illness The patient is a 43-year-old female presenting with morbid obesity. The patient denies experiencing shortness of breath, chest pain, numbness, tingling, constipation, diarrhea, depression, anxiety, suicidal ideation, or homicidal ideation. She is currently under the care of a speech and language clinician and a neurologist at [facility]. The patient's colonoscopy is up to date. Health Maintenance - Colonoscopy is up to date Social History Review of Systems - Respiratory: Denies shortness of breath - Cardiovascular: Denies chest pain - Neurological: Denies numbness and tingling - Gastrointestinal: Denies constipation and diarrhea - Psychiatric: Denies depression, anxiety, suicidal ideation, and homicidal ideation Physical Exam General: Cooperative, healthy appearing, comfortable, no acute distress and well developed. Morbidly obese Orientation: Patient oriented x3 Limitations: No limitations Head: Normal to inspection Ears: Hearing grossly normal bilaterally Nose: Normal external nose present Face and sinus: Normal facial exam Eyes: Appearance normal, both eyes and all related structures Neck: Normal visual inspection and Yes full ROM Respiratory: Normal respiratory effort and able to speak in complete sentences. Clear to auscultation bilaterally Cardiovascular: Regular rate and rhythm. Normal S1 and S2 GI: Normal to inspection. Soft to palpation and nontender Skin: No rashes or lesions noted Neuro: Patient oriented x3 Extremities: Normal to inspection Results Plan continue following up with specialists as scheduled Patient was informed and verbally consented to the use of an ambient scribe for clinic note documentation during this visit. Discussion Notes Patient Instructions [facility] Medical History (Updated 06/02/24 @ 08:09 by ASHLEY West) IIH (idiopathic intracranial hypertension) Right humeral fracture Chronic GERD Iron deficiency Left Achilles tendinitis Plantar fasciitis Dyslipidemia Hypothyroid HTN (hypertension) Asthma Physical exam Right shoulder injury Surgical History S/P gastric sleeve procedure History of sleeve gastrectomy H/O repair of right rotator cuff History of lipoma Hx of cholecystectomy History of section History of tonsillectomy and adenoidectomy Family History Father No problems noted. Mother Non-Hodgkins lymphoma Sister No problems noted. Brother No problems noted. Maternal Grandmother Diabetes mellitus HTN (hypertension) Degenerative disk disease Breast cancer Maternal Grandfather No problems noted. Brother No problems noted. Sister No problems noted. Social History Housing: House Alcohol intake: never Patient Tobacco Use Status: Never used Tobacco Tobacco use type: Cigarette e-Cigarette/Vaping Use: Never Used Second Hand Smoke Exposure: Yes Current occupational status: employed Cognitive needs: No Hearing needs: No Vision needs: No Questionnaire PHQ-9 Over the last 2 weeks, how often have you been bothered by any of the following problems? 1. Little interest or pleasure in doing things: not at all 2. Feeling down, depressed, or hopeless: not at all 3. Trouble falling or staying asleep, or sleeping too much: not at all 4. Feeling tired or having little energy: not at all 5. Poor appetite or overeating: not at all 6. Feeling bad about yourself - or that you are a failure or have let yourself or your family down: not at all 7. Trouble concentrating on things, such as reading the newspaper or watching television: not at all 8. Moving or speaking so slowly that other people could have noticed. Or the opposite - being so fidgety or restless that you have been moving around a lot more than usual: not at all 9. Thoughts that you would be better off or of hurting yourself in some way: not at all Total score: 0 Source: Developed by Drs. Kevin Seay, Amarilis Villalobos, Jason Hernandez and colleagues, with an educational katarina from [employer]. Thrive Questionnaire Date Thrive assessed: 06/02/24 I am a: Patient What is your living situation today?: I have a steady place to live Within the past 12 months, did the food you bought not last and you didn't have the money to get more?: Never true Within the past 12 months, did you worry whether your food would run out before you got money to buy more?: Never true Do you have trouble paying for medicines?: No Do you have trouble getting transportation to medical appointments?: No Do you have trouble paying your heating and electricity bill?: No Do you have trouble taking care of your child, family member or friend?: No Do you have trouble with day-to-day activities such as bathing, preparing meals, shopping, managing finances, etc.?: No Are you currently unemployed and looking for a job?: No Are you interested in more education?: No Please select the resources that you would like help with: None Currently or been in a relationship where the following occur: No concerns reported THRIVE Score: 0 AUDIT C Alcohol Use Questionnaire (AUDIT-C) 1. How often do you have a drink containing alcohol?: Never Total Score: 0 JAYCE-7 AMB Questionnaire JAYCE-7 Date JAYCE - 7 assessed: 06/02/24 Feeling nervous, anxious, or on edge: 0 = Not at all Not being able to stop or control worryin = Not at all Worrying too much about different things: 0 = Not at all Trouble relaxin = Not at all Being so restless that it is hard to sit still: 0 = Not at all Becoming easily annoyed or irritable: 0 = Not at all Feeling afraid as if something awful might happen: 0 = Not at all Total JAYCE-7 score (0-4 normal; 5-9 mild; 10-14 moderate; 15-21 severe): 0 Source: Developed by Drs. Kevin Seay, Amarilis Villalobos, Jason Hernandez and colleagues, with an educational katarina from [email or web address]. Physical exam (Primary Care) Vital Signs: Last Vital Signs Pulse 76 06/02/24 07:42 BP 110/70 06/02/24 07:42 Pulse Ox 96 06/02/24 07:42 Oxygen Delivery Method Room Air 06/02/24 07:42 BMI result Body Mass Index 47.1 Tobacco/Smoking Status: Tobacco use Status Tobacco use date assessed 06/02/24 06/02/24 07:48 Patient Tobacco Use Status Never used Tobacco 06/02/24 07:41 Tobacco use type Cigarette 06/02/24 07:41 e-Cigarette/Vaping Use Never Used 06/02/24 07:41 PHQ-9: PHQ-9 Score PHQ-9: Total score 0 06/02/24 07:58 Thrive Assessment: Date of Thrive Assessment Date Thrive assessed 06/02/24 06/02/24 07:48 Currently or been in a relationship where the following occur: No concerns reported Immunizations Boostrix Tdap 2.5 Lf unit-8 mcg-5 Lf/0.5 mL intramuscular syringe Performing Provider: ASHLEY West Performing Location: [facility] Administered by: Mayo Caraballo CMA on 06/02/24 08:16 Dose Route Admin Location Dispensed Lot Number Expiration Date NDC Speech Pathology Teacher 0.5 mL IM Left Deltoid 0.5 mL [id number] 06/02/26 00497-180-32 [employer] VIS Given Date VIS Provided VIS Publication Date 06/02/24 Single Vaccine 20 Eligibility Eligibility Date Funding Source Not [facility] Eligible 06/02/24 Private Coding Level of Care Code Est Pt Prev Care 40-64y(27924) Diagnoses Physical exam Z00.00 Vitamin D deficiency E55.9 Chronic migraine G43.709 IIH (idiopathic intracranial hypertension) G93.2 Assessment & Plan Assessment & Plan (1) Physical exam: Code(s): Z00.00 - Encounter for general adult medical examination without abnormal findings Category: Medical (2) Vitamin D deficiency: Code(s): E55.9 - Vitamin D deficiency, unspecified Category: Medical Plan: . (3) Chronic migraine: Code(s): G43.709 - Chronic migraine without aura, not intractable, without status migrainosus Category: Medical (4) IIH (idiopathic intracranial hypertension): Code(s): G93.2 - Benign intracranial hypertension Category: Medical Plan . Orders: Orders Complete Blood Count Auto Diff Today Z00.00 - Encounter for general adult medical examination without abnormal findings Comprehensive Welch. Panel Fast Today Z00.00 - Encounter for general adult medical examination without abnormal findings UA CC w/rflx Micro + Cult Today Z00.00 - Encounter for general adult medical examination without abnormal findings Lipid Panel Today Z00.00 - Encounter for general adult medical examination without abnormal findings MM screening mammo BI Today Z12.31 - Encounter for screening mammogram for malignant neoplasm of breast TDaP Immunization Today Z23 - Encounter for immunization TSH reflex Free T4 Today Z00.00 - Encounter for general adult medical examination without abnormal findings Vitamin D 25-OH Total Today E55.9 - Vitamin D deficiency, unspecified Referrals Neurology Referral G43.709 - Chronic migraine without aura, not intractable, without status migrainosus, G93.2 - Benign intracranial hypertension Medications: New Boostrix Tdap (diphth,pertus(acell),tetanus) 0.5 mL IM ONCE 0.5 mL 0RF NS Z23 - Encounter for immunization
[2024-06-02 07:42] VITALS: BP 110/70; PULSE 76; O2SAT 96; BMI 47.1
== END 2024-06-02 08:24 | disposition home or self-care (01) ==
PROVIDERS: PCP Nurse Practitioner Family; Visit Provider Nurse Practitioner Family
DX: Z00.00 Encounter for general adult medical examination without abnormal findings (principal); E55.9 Vitamin D deficiency, unspecified; G43.709 Chronic migraine without aura, not intractable, without status migrainosus; G93.2 Benign intracranial hypertension; Z23 Encounter for immunization

== ENCOUNTER → 2024-06-02 07:30 | Outpatient (BNVA) | payer OTHER, SELFPAY | PROVIDERS: PCP Nurse Practitioner Family; Visit Provider Nurse Practitioner Family | DX: Z00.00 Encounter for general adult medical examination without abnormal findings (principal); Z23 Encounter for immunization; E55.9 Vitamin D deficiency, unspecified; G43.709 Chronic migraine without aura, not intractable, without status migrainosus; G93.2 Benign intracranial hypertension | CPT/HCPCS: 90471; 90715 ==